=== PATIENT | female | born 1940 | race Caucasian/White ===

== ENCOUNTER 2024-04-04 14:54 | Outpatient (REF) | payer MEDICARE, OTHER, SELFPAY ==
[2024-04-04 17:57] LABS: Appearance Urine Clear; Color Urine Yellow; Glucose Urine UA Negative (Negative); Leukocyte Esterase Urine Trace (Negative); Nitrite Urine Negative (Negative); PH 5.5 (5.0-9.0); Specific Gravity - Urine 1.015 (1.005-1.025); UMIC TRIGGER UA YES; Urine Blood Negative (Negative); Urine Ketones Trace mg/dL (Negative); Urine Protein Trace mg/dL (Neg-Trace)
[2024-04-04 18:05] LABS: Hematocrit 41.5 % (37.0-47.0); Hemoglobin 14.2 g/dl (12.0-16.0); Mean Corpuscular HGB Conc 34.2 g/dl (31.0-35.0); Mean Corpuscular Hemoglobin 32.6 pg (27.0-33.0); Mean Corpuscular Volume 95.2 fL (80.0-98.0); Mean Platelet Volume 10.8 fL (9.4-12.3); Platelet Count 217 X10*3/uL (160-400); Red Blood Count 4.36 X10*6/uL (4.20-5.50); Red Cell Distribution Width 12.9 % (11.0-16.0); White Blood Count 4.8 X10*3/uL (4.8-10.8)
[2024-04-04 18:07] LABS: Estimated Average Glucose 100 mg/dL; Hemoglobin A1c % 5.1 % (<6.0); Total Hemoglobin (HGBA1C) 3632.8069 umol/L
[2024-04-04 18:16] LABS: Bacteria Urine None Seen (None Seen); RBC Urine 0-2 /HPF (0-2)
[2024-04-04 18:24] LABS: Alanine Aminotransferase 19 U/L (0-31); Albumin Level 4.2 g/dL (3.5-5.0); Alkaline Phosphatase 67 U/L (39-117); Anion Gap 14 (12-20); Aspartate Amino Transferase 23 U/L (5-31); Bilirubin Total 0.6 mg/dL (0.0-1.0); Blood Urea Nitrogen 10 mg/dL (9-16); Calcium 9.3 mg/dL (8.4-10.2); Carbon Dioxide 25 mmol/L (22-29); Chloride 103 mmol/L (96-108); Cholesterol 265 mg/dL (<200); Estimated Glomerular Filt Rate > 60; Glucose Random 100 mg/dL (60-115); HDL Cholesterol 93 mg/dL (>40); LDL Cholesterol Calculated 158 mg/dL (<100); Magnesium 2.1 mg/dL (1.6-2.6); Phosphorus 2.9 mg/dL (2.7-4.5); Potassium 3.6 mmol/L (3.3-5.1); Sodium 138 mmol/L (135-145); Total Protein 7.6 g/dL (6.5-8.0); Triglycerides 70 mg/dL (<150)
[2024-04-04 18:34] LABS: Creatinine Urine 117.72 mg/dL
[2024-04-04 18:39] LABS: TSH reflex Free T4 2.18 uIU/mL (0.32-4.0); Vitamin D 25-OH Total 40.6 ng/mL (>30)
[2024-04-04 18:45] LABS: Folate 14.6 ng/mL (> or = 4.0); Vitamin B12 610 pg/mL (200-900)
== END 2024-04-04 14:55 | disposition home or self-care (01) ==
LOC: HO.WFDLDS 14:54
PROVIDERS: Visit Provider Nurse Practitioner Family
DX: Z00.00 Encounter for general adult medical examination without abnormal findings (principal); Z76.89 Persons encountering health services in other specified circumstances; Z23 Encounter for immunization; F41.1 Generalized anxiety disorder; F10.90 Alcohol use, unspecified, uncomplicated; C44.91 Basal cell carcinoma of skin, unspecified; I51.7 Cardiomegaly; I73.9 Peripheral vascular disease, unspecified; I10 Essential (primary) hypertension; Z78.0 Asymptomatic menopausal state; Z71.89 Other specified counseling
CPT/HCPCS: 36415; 80053; 80061; 81001; 82043; 82306; 82570; 82607; 82746; 83036; 83735; 84100; 84443; 85027; 90471; 90656; 90715; 93005; 96127; 99202

== ENCOUNTER 2024-04-11 11:17 | Outpatient (AMB) | payer MEDICARE, OTHER, SELFPAY ==
--- NOTE | 2024-04-11 11:20 | A.OFFVIS_ITS ---
Intake Vital Signs 04/11/24 11:46 Height 5 ft 4 in Weight 157 lb 4 oz BMI 27.0 BP 164/84 H Blood Pressure Location Rt brachial Position Sitting Respiration 13 Pulse 69 Pulse Source Pulse Oximeter Temp 96.9 F Temp Source Oral Pulse Oximetry (%) 99 Oxygen Delivery Method Room Air Intake Visit Reasons: Follow up Intake Note: AWV annual visit [employer] Required: No Allergies No Known Allergies Allergy (Verified 04/11/24 11:21) Medication List - Last Reconciled 04/11/24 by EDDIE Dos Santos- No Known Home Meds Do you need a note to return to daycare/school/sports/work: No HPI HPI Comments History of Present Illness Details Glo Here today for AWV and routine fu: 83 y/o F with basal cell ca, LVH, ROLF, E sly use, PVD, HTN SurgHx: none FHx: sister and bro with parkinson, both parent CHF, brother MVP, Maternal side Cards; Brother w lymphoma, 2 sisters w breast ca, 1 sister w lung ca, siblings with macular SocHx: - Exercise: Active, used to walk a mile and a half daily, recently resumed this activity. - Functional Status: Maintains self-suff iciency, actively mows the lawn for herself and neighbors. - Substance Use: Consumes alcohol occasi onally, sometimes due to anxiety. - Vaccinations: Has not received recent vaccinations including flu and tetanus. - Family: Significant family history of cardiovascular disease and various cancers. Health Maintenance: See scanned preventative medicine assessment with personalized health plan and screening schedule. Colon: has never had one Mammo ordered today DEXA ordered today PAP aged out Vaccines: Flu, Tdap 03/2024 AAA screen: NA EKG: LVH, q waves [place] of Care: Dental Eye Derm Visual Acuity: wears glasses, declined exam today, last eye exam years ago [place] [facility] Hearing Screening: no hearing aides, she has no complaints ACP: HCP Y MOLST/ACP No Forms provided Dietary/Nutrition/Exercise Edu provided: Y Results Labs from 04/04/2024 show a normal CBC, normal electrolytes, normal renal function, hemoglobin A1c of 5.1%, normal calcium, phosphorus, magnesium, normal LFTs, total cholesterol 265, LDL 158, HDL 93, normal vitamin B12, vitamin-D, folate, TSH, normal urinalysis, slightly elevated urine microalbumin creatinine at 56 During the course of the visit the patient was educated and counseled about appropriate screening and preventative services. Patient instructions were provided to the patient in written or electronic format. I have reviewed and verified the above information. - elevated blood pressure - She reports underlying anxiety issues, attributing part of her elevated blood pressure to stress factors. - EKGs have shown Left Ventricular Hyper trophy, indicating increased cardiac workload. Health Maintenance - Discussion included the importance of monitoring blood pressure regularly. - Recommendations for an eye examination given it has been a couple of years since the last visit. - Introduction to advance care planning and documentation of patient wishes including MOLST form. - Encouragement of lifestyle adjustments , such as gradual position changes to prevent dizziness and fainting. - Avoidance of excessive alcohol intake was discussed to moderate her consumption of wine. Social History - The patient is fiercely independent an d does not usually require assistance with daily activities. - Regular physical activity mentioned as being able to handle tasks resembling heavy work. - She is not currently sexually active. Review of Systems - Cardiovascular: Reports high blood pre ssure, denies experiencing symptoms di rectly from hypertension. - Neurological: Denies dizziness under n ormal circumstances or excessive tiredness. - Musculoskeletal: Reports being indepen dent in physical activities without assistance. - Psychiatric: Reports longstanding anxi ety impacting social interactions. - Genitourinary: Denies urinary incontin ence. - Gastrointestinal: Denies any issues wi th chewing, eating, or significant g astrointestinal complaints. Exam: General: Well developed, well nourished, in no acute distress. Appears stated age. accompanied by Nhan vo Head: Normocephalic, atraumatic. Eyes: Pupils are equal, round and reactive to light and accommodation. Conjunctivae are clear. Vision grossly normal. Ears: TMs clear AU, EACS WNL Nose: Patent, without discharge. Mouth: There are no ulcers or lesions noted. No inflammation, no post nasal drip, no plaques nor exudates. Neck: Supple, no adenopathy or thyromegaly. Lungs: Clear to auscultation bilaterally. No rales, rhonchi or wheeze noted. Good air flow in all conde. Heart: Regular rate, + PVC + 2/6 murmurs, click, rubs or gallops are noted. Abdomen: Bowel sounds present in all quadrants. The abdomen is soft, nontender, with no masses or organomegaly noted. No hernias are noted. Musculoskeletal: Joints are nontender, without swelling, redness, or effusions. Range of motion is observed to be normal. Pulses: Peripheral pulses are equaly decreased and palpable bilaterally. Extremities: No clubbing, cyanosis is noted. No edema ble, skin hairless, decreased PP bilat, skin intact Neurologic: Gait and station normal. Cranial Nerves 2-12 intact. Motor strength grossly symmetrical and intact. No sensory loss. Balance normal. Skin: No rashes. + scattered abnormal lesions noted on back. Turgor is good. Skin color is good. Hair and nails are without abnormalities. Psych: Normal eye contact, affect and mood appropriate, and normal interactions. Patient is alert and appropriate to context. + Anxious Results - Labs: The patient's recent lab work WN L - Imaging/EKG: Indications of Left Ventr icular Hypertrophy present. Plan The primary interventions include initiating Lisinopril to address essential hypertension and Sertraline to manage anxiety symptoms. The dose starts at a minimal level to ensure patient tolerance, with plans to monitor both blood pressure and anxiety closely over the coming weeks. Laboratory results are currently reassuring, including the EKG markers of Left Ventricular Hypertrophy, which will be further assessed with an upcoming echocardiogram. Follow-up appointments for eye health and dermatology were emphasized to ensure comprehensive preventative care. Advance care planning discussions are recommending acknowledgment and future consideration. The patient will be monitored for any adverse reactions to new medications, such as dizziness or facial swelling. Discussion Notes I discussed with the patient the implications of her elevated blood pressure and anxiety, emphasizing that both could be managed effectively with appropriate pharmacological intervention. Sertraline was introduced as a treatment for anxiety, with the explanation that it may take a few weeks for full effect. Lisinopril was recommended for managing high blood pressure, with the potential side effects of dizziness and swelling highlighted. The importance of monitoring her blood pressure regularly at home was stressed, along with scheduling upcoming echocardiogram to assess cardiac status. The significance of advance care planning was explained, providing materials for patient reflection. I provi ded full transparency into the treatment schedule and anticipated progress, ensuring understanding and consent. Future follow-up in two weeks was set to evaluate the efficacy of the medication adjustments. Patient Instructions - Begin taking Sertraline as directed: 1 2.5 mg once a day for two weeks, then increase as instructed. - Start Lisinopril at 5 mg daily to rajesh ramirez blood pressure. - Keep a log of daily blood pressure selene bearden and bring to next appointment. - Monitor for side effects of medication s, such as dizziness or swelling, and report immediately if they occur. - Arrange appointments for an eye exam a nd dermatology for routine care. - Complete advance care planning forms a fter reviewing the provided materials. - Follow all medical appointments, inclu ding the echocardiogram next week. - Stay physically active and cautious wh ile changing positions to avoid dizziness. Patient was informed and verbally consented to the use of an ambient scribe for clinic note documentation during this visit. An additional 30 minutes was spent addressing the problem(s) noted at todays visit. This includes time spent before the visit reviewing the chart, time spent during the visit, and time spent after the visit on documentation reviewing laboratory results, diagnostic imaging, medications, performing a medically necessary evaluation, counseling on diagnoses, care coordination, ordering appropriate tests, ordering appropriate medications, review of tests performed by other providers, reporting test results with the patient, communication with other healthcare providers. [facility] Medical History (Updated 04/11/24 @ 12:41 by ANNETTE Dos SantosFORMERLY [facility]) Anxiety Skin cancer Surgical History (Updated 04/04/24 @ 13:35 by Savanna Arias MA) No pertinent past surgical history Family History (Updated 04/04/24 @ 13:35 by Savanna Arias MA) Sister Mental health disorder Cancer Parkinson disease Hypertension Paternal Grandmother Mental health disorder Brother Mental health disorder Cancer Parkinson disease Hypertension Cardiovascular disease Sister Cancer Father Hypertension Cardiovascular disease Mother Cardiovascular disease Son Diabetes Maternal Grandmother Diabetes Social History (Updated 04/04/24 @ 13:33 by Savanna Arias MA) Household Members: None Both parents involved: No Caregiver staying overnight: No Housing: House Are you a primary rn care transition to a significant other at home: No Do you presently have visiting nurse or other home services: No 75 years or older and lives alone: No Alcohol intake: current Alcohol intake frequency: a few times a week Patient Tobacco Use Status: Never used Tobacco e-Cigarette/Vaping Use: Never Used Second Hand Smoke Exposure: No service: No Current occupational status: retired Cognitive needs: No Hearing needs: No Vision needs: No Questionnaire Medicare Wellness Checkup What is your age?: 80 or older What gender do you identify with?: female During the past 4 weeks, how much have you been bothered by emotional problems such as feeling anxious, depressed, irritable, sad or downhearted, and blue?: see PHQ-9 During the past 4 weeks, has your physical & emotional health limited your social activities with family, friends, neighbors, or groups?: extremely During the past 4 weeks, how much bodily pain have you generally had?: no pain During the past 4 weeks, was someone available to help you if you needed & wanted help?: yes, as much as I wanted During the past 4 weeks, what was the hardest physical activity you could do for at least 2 minutes?: heavy Can you get to places out of walking distance without help? (For eg., can you travel alone on buses, taxis or drive your car?): Yes Can you go shopping for groceries or clothes without someone's help?: Yes Can you prepare your own meals?: Yes Can you do your housework without help?: Yes Because of any health problems, do you need the help of another person with your personal care needs such as eating, bathing, dressing or getting around the house?: No Can you handle your own money without help?: Yes During the past 4 weeks, how would you rate your health in general?: good During the past 4 weeks how have things been going for you?: good & bad parts about equal Are you having difficulties driving your car?: no Do you always fasten your seat belt when you are in a car?: yes, usually During past 4 weeks, have you been bothered by the following: never: Falling or dizzy when standing up, Sexual problems?, Trouble eating well?, Teeth or denture problems?, Problems using the telephone? and Tiredness or fatigue? Have you fallen 2 or more times in the past year?: No Are you afraid of falling?: Yes Are you a smoker?: no During the past 4 weeks, how many drinks of wine, beer, or other alcoholic beverages did you have?: no alcohol at all Do you exercise for about 20 minutes 3 or more times a week?: yes, some of the time Have you been given information to help with the following?: no: Hazards in your house that might hurt you? and no: Keeping track of your medications? How often do you have trouble taking medicines the way you have been told to take them?: I do not have to take medicine How confident are you that you can control & manage most of your health problems?: very confident What is your race?: White Activity of Daily Living Bathing - sponge bath, tub bath or shower: receives no assistance (gets in/out by self, if usual bathing means Dressing - getting clothes from closets & drawers, including inner/outer garments & fasteners.: gets clothes & gets completely dressed without help Toileting - going to the 'toilet room' for urine/bowel elimination & cleaning self/arranging clothes: goes to toilet room, cleans self, arranges clothes without help Transfer: moves in & out of bed and chair without help (may use support object) Continence: controls urination/bowel movements completely by self Feeding: feeds self without help Total Score: 0 Information obtained from: patient Using telephone: independent Traveling: independent Shopping: independent Preparing meals: independent Housework: independent Taking medicine: independent Managing money: independent PHQ-9 Over the last 2 weeks, how often have you been bothered by any of the following problems? 1. Little interest or pleasure in doing things: not at all 2. Feeling down, depressed, or hopeless: not at all 3. Trouble falling or staying asleep, or sleeping too much: not at all 4. Feeling tired or having little energy: not at all 5. Poor appetite or overeating: not at all 6. Feeling bad about yourself - or that you are a failure or have let yourself or your family down: not at all 7. Trouble concentrating on things, such as reading the newspaper or watching television: not at all 8. Moving or speaking so slowly that other people could have noticed. Or the opposite - being so fidgety or restless that you have been moving around a lot more than usual: not at all 9. Thoughts that you would be better off or of hurting yourself in some way: not at all Total score: 0 Depression Screening Interpretation: Negative Depression Screening Done: Yes 11802 - PHQ-9 Billing: Yes Source: Developed by Drs. Refugio Magana, Casie Aguilera, Brennen Murcia and colleagues, with an educational carmenza from [employer] Physical Exam Vital Signs: Last Vital Signs Temp 96.9 F 04/11/24 11:46 Pulse 69 04/11/24 11:46 Resp 13 04/11/24 11:46 BP 164/84 H 04/11/24 11:46 Pulse Ox 99 04/11/24 11:46 Oxygen Delivery Method Room Air 04/11/24 11:46 BMI result Body Mass Index 27.0 Assessment & Plan Assessment & Plan (1) Encounter for subsequent annual wellness visit (AWV) in Medicare patient: Code(s): Z00.00 - Encounter for general adult medical examination without abnormal findings (2) LVH (left ventricular hypertrophy): Code(s): I51.7 - Cardiomegaly (3) HTN (hypertension): Code(s): I10 - Essential (primary) hypertension Qualifiers: Hypertension type: primary hypertension Qualified Code(s): I10 - Essential (primary) hypertension (4) Alcohol use: Code(s): F10.90 - Alcohol use, unspecified, uncomplicated (5) ACP (advance care planning): Code(s): Z71.89 - Other specified counseling (6) Basal cell carcinoma of skin: Code(s): C44.91 - Basal cell carcinoma of skin, unspecified Qualifiers: Basal cell carcinoma location: unspecified site Qualified Code(s): C44.91 - Basal cell carcinoma of skin, unspecified (7) ROLF (generalized anxiety disorder): Code(s): F41.1 - Generalized anxiety disorder Plan . Medications: New sertraline 1/2 tab once per day x 2 weeks then increase to 1 tab daily 25 mg PO DAILY 30 tabs 1RF lisinopril 5 mg PO DAILY 90 tabs 0RF miscellaneous medical supply (Blood Pressure Cuff) As directed 1 ea 1RF I10 - Essential (primary) hypertension, I51.7 - Cardiomegaly Quality Reporting (2019) Adult ([facility] 138/04/19/68) Smoking risk assessment performed?: Yes Patient Tobacco Use Status: Never used Tobacco Depression screening performed: Yes Screen Results: Yes Negative screen Systolic BP not done?: No Diastolic BP not done?: No BMI screening not done: No Sexual Activity Screening ([facility] 153) Sexually active?: No Immunizations (CMS 147, 117) Annual Influenza Vaccine: Yes Measles Antibody Test: No Mumps Antibody Test: No Rubella Antibody Test: No Varicella Antibody Test: No Anti Hepatitis A IgG Antigen test: No Anti Hepatitis B Virus Surface Ab test: No Fall Risk Screening ([facility] 139) Last assessed Fall Risk: 04/11/24 Fall risk assessment: No Falls in past year Dementia Assessment ([facility] 149) Cognitive assessment recorded: Yes Assessment of cognition with standardized tool: Yes (/ on 6 CIT ) Depression/Bipolar (159/160/161/177) PHQ-9: Total score: 0 Ophthalmol:Cataracts Visual Acuity (133) Visual acuity exam performed: Yes (overdue for eye exam, [place] [facility], wears glasses. ) Coding Level of Care Code Medicare Subsequent (G0439) Est Pt Level 4 (32633) Diagnoses Encounter for subsequent annual wellness visit (AWV) in Medicare patient Z00.00 LVH (left ventricular hypertrophy) I51.7 Primary hypertension I10 Hypertension type: primary hypertension Alcohol use F10.90 ACP (advance care planning) Z71.89 Basal cell carcinoma (BCC), unspecified site C44.91 Basal cell carcinoma location: unspecified site ROLF (generalized anxiety disorder) F41.1 CPT Codes Advance Care Planning - Time spent: 1-15 minutes, not on file ([id number]) Additional Codes PHQ-9 - 03582 - PHQ-9 Billing: Yes ([id number]) Advance Care Planning Advance Care Planning discussion: Exists, not on file Date of discussion: 04/11/24 Who was present: pt and dtr nhan (HCP) Forms completed: Health Care Proxy (scanned into chart; MOLST/ACP info provided ), MOLST, Comfort care/DNR and Living will Time spent: 1-15 minutes, not on file Actual minutes spent: 10
[2024-04-11 11:46] VITALS: BP 164/84; PULSE 69; RESP 13; TEMP 36.1; O2SAT 99; BMI 27.0
== END 2024-04-11 12:28 | disposition home or self-care (01) ==
PROVIDERS: PCP Nurse Practitioner Family; Visit Provider Nurse Practitioner Family
DX: Z00.00 Encounter for general adult medical examination without abnormal findings (principal); I51.7 Cardiomegaly; I10 Essential (primary) hypertension; F10.90 Alcohol use, unspecified, uncomplicated; Z71.89 Other specified counseling; C44.91 Basal cell carcinoma of skin, unspecified; F41.1 Generalized anxiety disorder

== ENCOUNTER → 2024-04-11 11:17 | Outpatient (BNVA) | payer MEDICARE, OTHER, SELFPAY | PROVIDERS: PCP Nurse Practitioner Family; Visit Provider Nurse Practitioner Family | DX: Z00.01 Encounter for general adult medical examination with abnormal findings (principal); I10 Essential (primary) hypertension; I51.7 Cardiomegaly; F10.90 Alcohol use, unspecified, uncomplicated; C44.91 Basal cell carcinoma of skin, unspecified; F41.1 Generalized anxiety disorder; Z71.89 Other specified counseling | CPT/HCPCS: 96127; 99212 ==

== ENCOUNTER → 2024-04-16 12:50 | Outpatient (REF) | payer MEDICARE, OTHER, SELFPAY ==
--- NOTE | 2024-04-16 12:57 | CA_ITS ---
Transthoracic Echocardiogram Patient (Last, First, Middle): Mervat Eli W Gender: Female Date of : 1940 Age: 83 Procedure Date: 04/16/2024 Procedure Type: Transthoracic Echocardiogram Location: OP Height: 162.56 cm Weight: 68.04 kg BSA: 1.73 m2 Heart Rate: bpm BP: 168 / 84 mmHg Heddler: RADHA Referring MD: Vane Ladd [facility] Symptoms: I51.7 - Cardiomegaly Study Quality: Fair ECG Rhythm: Sinus Conclusions: - The left ventricular systolic function is moderately decreased. The calculated ejection fraction is 40% by biplane method. - There is evidence of regional wall motion abnormalities. - Evidence suggests grade II (moderate) diastolic dysfunction. - There is mild mitral valve regurgitation. - There is mild dilatation of the ascending aorta measuring 4.00 cm. Findings Left Ventricle Moderately increased left ventricular cavity size. The left ventricular systolic function is moderately decreased. The calculated ejection fraction is 40% by biplane method. There is evidence of regional wall motion abnormalities. Evidence suggests grade II (moderate) diastolic dysfunction. There is mild septal asymmetric hypertrophy. Wall Motion Rest Echo Findings The basal inferior, basal anterolateral, and mid inferolateral segments are hypokinetic. The basal inferolateral segment is akinetic. Right Ventricle Mildly increased right ventricular cavity size. There is low normal right ventricular systolic function. Atria The left atrium is severely dilated. The right atrium is normal in size. Aortic Valve There is a normal trileaflet aortic valve. There is mild calcification of the aortic valve. There is no aortic valve stenosis. There is no aortic valve regurgitation. Mitral Valve There is mild mitral annular calcification. There is mild mitral valve regurgitation. There is no mitral valve stenosis. Pulmonic Valve The pulmonic valve is likely normal. Tricuspid Valve There is mild tricuspid valve regurgitation. There is no evidence of pulmonary hypertension. Great Vessels There is mild dilatation of the ascending aorta measuring 4.00 cm. Venous The inferior vena cava is normal in size and collapses greater than 50% with inspiration. Pericardium/Pleural There is no evidence of pericardial effusion. Prior Study Comparison No prior study available for comparison. Measurements 2D Linear Measurements IVSd: 1.04 0.6-0.9/0.6-1.0 cm LVIDd: 6.34 3.9-5.3/4.2-5.9 cm LVIDd Index: 3.66 2.4-3.2/2.2-3.1 cm/m2 LVIDs: 5.71 2.0-3.6 cm LVPWd: 0.95 0.7-1.1 cm LA Diam: 4.50 2.7-3.8/3.0-4.0 cm LAIDs Index: 2.60 1.5-2.3 cm/m2 LV Mass: 336.96 67-162/88-224 g LV Mass Index: 194.78 43-95/49-115 g/m2 LVOT Diam: 2.10 3.0+(-)1.3 cm 2D Systolic Function EF 4C: 41.50 >55% EF 2C: 41.30 >55% EF BiP: 40.40 >55% Mitral Valve MV Pk E: 0.75 MV PK A: 0.73 MV Decel Time: 251.00 E/A: 1.00 E'Lateral: 4.35 E'Medial: 4.03 E/E' Med: 18.50 E/E' Lat: 17.10 PHT: 73.00 MVA PHT: 3.01 Decel [place]: 2.97 Aortic Valve AoV Pk Adán: 1.56 AoV Mn Adán: 1.00 AoV VTI: 0.33 AoV Pk Grad: 10.00 Aov Mn Grad: 5.00 MICHELE Cont.VTI: 1.82 LVOT LVOT Pk Adán: 0.83 LVOT Mn Adán: 0.51 LVOT VTI: 0.17 LVOT Pk Grad: 3.00 LVOT Mn Grad: 1.00 LVOT Diam: 2.10 LVOT Area: 3.46 Diastolic Function MV Pk E: 0.75 MV Pk A: 0.73 E/A: 1.00 E'Medial: 4.03 E/E' Med: 18.50 E' Laterial: 4.35 E/E' Lat: 17.10 Right Ventricle TAPSE (mm): 24.00 TVS' Adán: 10.60 Tricuspid Valve TR Pk Adán: 2.55 TR Pk Grad: 26.00 RA Press: 3.00 RVSP: 29.00 Great Vessels Aorta Sinus of Valsalva: 3.21 2.0-3.[address] [place]: 2.96 1.7-3.4 cm Ao Asc: 4.00 2.1-3.4 cm Updated in Other Vendor System with Status of Final Vinay Jiang MD electronically signed on 04/17/2024 11:08:23 AM with status of Final
== END ==
LOC: HO.CARD 12:50
PROVIDERS: Visit Provider Nurse Practitioner Family
DX: I51.7 Cardiomegaly (principal)
CPT/HCPCS: 93306

== ENCOUNTER → 2024-04-16 12:57 | Outpatient (BNV) | payer MEDICARE, OTHER, SELFPAY | PROVIDERS: Visit Provider Internal Medicine | DX: I42.2 Other hypertrophic cardiomyopathy (principal); I51.7 Cardiomegaly; I36.1 Nonrheumatic tricuspid (valve) insufficiency; I35.8 Other nonrheumatic aortic valve disorders | CPT/HCPCS: 93306 ==

== ENCOUNTER 2024-05-01 12:22 | Outpatient (AMB) | payer MEDICARE, OTHER, SELFPAY ==
--- NOTE | 2024-05-01 12:23 | MHC.PC.OV ---
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[employer] Jewel Required: No Allergies No Known Allergies Allergy (Verified 05/01/24 12:34) Medication List - Last Reconciled 05/01/24 by Vane Ladd, TIME ANALYSIS CLERK- lisinopril 5 mg PO DAILY miscellaneous medical supply (Blood Pressure Cuff) As directed sertraline 25 mg PO DAILY Tobacco use date assessed: 05/01/24 Fall risk assessment: No Falls in past year Last assessed Fall Risk: 05/01/24 Dental Screening Dental Screen Date: 05/01/24 Did you have a dental visit in the last 12 months?: No Did you have a dental problem in the last 6 months where you did not have access to dental care?: No Was dental information given to patient?: Patient has dentist HPI HPI Comments History of Present Illness Details The patient is an 83-year-old female presenting for an interim follow-up for hypertension and anxiety management. - Two weeks ago, treatment was initiated with lisinopril for hypertension and sertraline for anxiety. - The recent echocardiogram showed heart failure and aortic dilatation due to prolonged uncontrolled hypertension. See below for details. - Home blood pressure readings elevated, scanned into chart, sbp > 170, No dizziness or cardiovascular symptoms reported. Denies cough or side effects. - Anxiety symptoms have not changed, and she is tolerating sertraline without side effects. - MOLST discussed and completed today. Full code. Exam: General: Well developed, well nourished, in no acute distress. Appears stated age. accompanied by Roverto vo Head: Normocephalic, atraumatic. Lungs: Clear to auscultation bilaterally. No rales, rhonchi or wheeze noted. Good air flow in all conde. Heart: Regular rate, + PVC + 2/6 murmurs, click, rubs or gallops are noted. Extremities: No clubbing, cyanosis is noted. No edema ble, skin hairless, decreased PP bilat, skin intact Neurologic: Gait and station normal. Cranial Nerves 2-12 intact. Motor strength grossly symmetrical and intact. No sensory loss. Balance normal. Psych: Normal eye contact, affect and mood appropriate, and normal interactions. Patient is alert and appropriate to context. + Anxious Results Echo 03/2024 Moderate LVH, systolic function moderately decreased ejection fraction 40%, regional wall motion abnormalities with grade 2 moderate diastolic dysfunction, mild septal asymmetry hypertrophy, mild RVH, left atrium severely dilated, mild calcification of the aortic valve, mild mitral annular calcification, mild mitral valve regurg, mild tricuspid valve regurg, mild dilation of the ascending aorta 4 cm 04/2024 declined mammo/dexa @ this time Discussion Notes I discussed the echocardiogram findings with the patient, explaining the presence of heart failure and aortic dilatation primarily due to prolonged uncontrolled hypertension. I emphasized the importance of achieving optimal blood pressure control to prevent further cardiac complications. The patient was open to adding a beta-collin to the regimen, considering its dual benefit for blood pressure stabilization and heart failure treatment. I also advised on the necessity of monitoring potential side effects, such as bradycardia, due to her already lower resting heart rate. We addressed the potential of consulting cardiology but expressed hesitancy based on the likely extensive evaluations they might conduct. The patient appreciated a conservative management approach with close follow-up to monitor her response to incremental medication adjustments. We agreed to revisit diagnostic screenings at a later date due to the current focus on managing her immediate cardiovascular and anxiety concerns. Assessment and Plan 1. Essential Hypertension: The addition of carvedilol is advised to better manage hypertension by aiding in heart rate control and augmenting cardiac function. Lisinopril will remain at the current dose, and blood pressure will be regularly monitored. Start coreg once per day and increase to twice per day if able. 2. Anxiety Disorder: Continuing the current dosing of sertraline is recommended to allow sufficient response time. Symptom improvement will be evaluated at six weeks post-start of therapy. 3. Heart Failure: To address recently noted cardiac changes, optimization of medication with carvedilol is advised. Surveillance for ventricular function and symptomatic relief will be essential components of the follow-up. She is euvolemic. 4. Aortic Dilatation: Address this condition via diligent hypertension management strategies. Involvement of cardiology will be reconsidered based on patient preferences and clinical course. Pt declined at this time. Patient Instructions - Keep taking lisinopril as prescribed. - Start carvedilol at a low dose once daily initially to evaluate tolerance. - Follow up in four weeks to assess blood pressure control and medication effects. - Notify healthcare provider immediately if you experience symptoms such as heart rate below 50 bpm, dizziness, or fainting. - Continue sertraline medication and monitor for any changes in anxiety levels. - Regularly check blood pressure at home and maintain a log of readings. - Postpone mammogram and bone density screenings; prioritize current management. RTO 4 weeks for BP recheck, mood, sooner PRN Consent I obtained verbal consent from the patient for the initiation of carvedilol for additional blood pressure and heart failure management. The risks, including potential bradycardia, benefits of improved heart function, and alternatives were discussed comprehensively. The patient expressed understanding and agreement with the plan. Additionally, consent for ongoing antihypertensive and anxiety management strategies was confirmed. Patient was informed and verbally consented to the use of an ambient scribe for clinic note documentation during this visit. Total time spent caring for the patient today was 45 minutes. This includes time spent before the visit reviewing the chart, time spent during the visit, and time spent after the visit on documentation, reviewing laboratory results, diagnostic imaging, medications, performing a medically necessary evaluation, counseling on diagnoses, care coordination, ordering appropriate tests, ordering appropriate medications, review of tests performed by other providers, reporting test results with the patient, communication with other healthcare providers. [facility] Medical History (Updated 05/01/24 @ 15:26 by Vane Ladd [facility]) Anxiety Skin cancer Surgical History (Updated 04/04/24 @ 13:35 by Savanna Arias MA) No pertinent past surgical history Family History (Updated 04/04/24 @ 13:35 by Savanna Arias MA) Sister Mental health disorder Cancer Parkinson disease Hypertension Paternal Grandmother Mental health disorder Brother Mental health disorder Cancer Parkinson disease Hypertension Cardiovascular disease Sister Cancer Father Hypertension Cardiovascular disease Mother Cardiovascular disease Son Diabetes Maternal Grandmother Diabetes Social History (Updated 04/04/24 @ 13:33 by Savanna Arias MA) Household Members: None Both parents involved: No Caregiver staying overnight: No Housing: House Are you a primary career professional to a significant other at home: No Do you presently have visiting nurse or other home services: No 75 years or older and lives alone: No Alcohol intake: current Alcohol intake frequency: a few times a week Patient Tobacco Use Status: Never used Tobacco e-Cigarette/Vaping Use: Never Used Second Hand Smoke Exposure: No service: No Current occupational status: retired Cognitive needs: No Hearing needs: No Vision needs: No Questionnaire PHQ-9 Over the last 2 weeks, how often have you been bothered by any of the following problems? 1. Little interest or pleasure in doing things: not at all 2. Feeling down, depressed, or hopeless: not at all 3. Trouble falling or staying asleep, or sleeping too much: not at all 4. Feeling tired or having little energy: not at all 5. Poor appetite or overeating: not at all 6. Feeling bad about yourself - or that you are a failure or have let yourself or your family down: not at all 7. Trouble concentrating on things, such as reading the newspaper or watching television: not at all 8. Moving or speaking so slowly that other people could have noticed. Or the opposite - being so fidgety or restless that you have been moving around a lot more than usual: not at all 9. Thoughts that you would be better off or of hurting yourself in some way: not at all Total score: 0 28907 - PHQ-9 Billing: Yes Source: Developed by Drs. Refugio Magana, Casie Aguilera, Brennen Murcia and colleagues, with an educational carmenza from [employer]. Thrive Questionnaire Date Thrive assessed: 05/01/24 I am a: Patient What is your living situation today?: I have a steady place to live Within the past 12 months, did the food you bought not last and you didn't have the money to get more?: Never true Within the past 12 months, did you worry whether your food would run out before you got money to buy more?: Never true Do you have trouble paying for medicines?: No Do you have trouble getting transportation to medical appointments?: No Do you have trouble paying your heating and electricity bill?: No Do you have trouble taking care of your child, family member or friend?: No Do you have trouble with day-to-day activities such as bathing, preparing meals, shopping, managing finances, etc.?: No Are you currently unemployed and looking for a job?: No Are you interested in more education?: No Please select the resources that you would like help with: None Currently or been in a relationship where the following occur: No concerns reported THRIVE Score: 0 ROLF-7 AMB Questionnaire ROLF-7 Date ROLF - 7 assessed: 05/01/24 Feeling nervous, anxious, or on edge: 0 = Not at all Not being able to stop or control worryin = Not at all Worrying too much about different things: 0 = Not at all Trouble relaxin = Not at all Being so restless that it is hard to sit still: 0 = Not at all Becoming easily annoyed or irritable: 0 = Not at all Feeling afraid as if something awful might happen: 0 = Not at all Total ROLF-7 score (0-4 normal; 5-9 mild; 10-14 moderate; 15-21 severe): 0 Source: Developed by Drs. Refugio Magana, Casie Aguilera, Brennen Murcia and colleagues, with an educational carmenza from [employer]. ROLF-7 Assessment Billing ROLF-7 Assessment Tool: ROLF-7 Assessment 88174 Physical exam (Primary Care) Vital Signs: Last Vital Signs Temp 97.1 F 05/01/24 12:26 Pulse 53 05/01/24 12:26 Resp 13 05/01/24 12:26 BP 132/78 05/01/24 12:26 Pulse Ox 98 05/01/24 12:26 Oxygen Delivery Method Room Air 05/01/24 12:26 BMI result Body Mass Index 26.6 Tobacco/Smoking Status: Tobacco use Status Tobacco use date assessed 05/01/24 05/01/24 12:29 Patient Tobacco Use Status Never used Tobacco 05/01/24 12:29 e-Cigarette/Vaping Use Never Used 05/01/24 12:29 PHQ-9: PHQ-9 Score PHQ-9: Total score 0 05/01/24 12:29 Thrive Assessment: Date of Thrive Assessment Date Thrive assessed 05/01/24 05/01/24 12:29 Currently or been in a relationship where the following occur: No concerns reported Office Procedures Advance Care Planning Advance Care Planning discussion: Completed/Scanned Date of discussion: 05/01/24 Who was present: SELF AND DTR ROVERTO Forms completed: MOLST Time spent: 16-45 minutes Actual minutes spent: 5 Coding Level of Care Code Est Pt Level 5 (44987) Complex EM visit Add On G2211 Diagnoses ROLF (generalized anxiety disorder) F41.1 Primary hypertension I10 Hypertension type: primary hypertension ACP (advance care planning) Z71.89 Full code status Z78.9 Physician orders for life-sustaining treatment (POLST) form indicates patient wish for full code resuscitation status Z78.9 Ascending aorta dilatation I77.810 Chronic diastolic congestive heart failure I50.32 Heart failure type: diastolic Heart failure chronicity: chronic CPT Codes Advance Care Planning - Time spent: 16-45 minutes ([id number]) Additional Codes ROLF-7 Assessment Billing - ROLF-7 Assessment Tool: ROLF-7 Assessment 20061 ([id number]) PHQ-9 - 40298 - PHQ-9 Billing: Yes ([id number]) Assessment & Plan Assessment & Plan (1) ROLF (generalized anxiety disorder): Code(s): F41.1 - Generalized anxiety disorder Category: Medical (2) HTN (hypertension): Code(s): I10 - Essential (primary) hypertension Category: Medical Qualifiers: Hypertension type: primary hypertension Qualified Code(s): I10 - Essential (primary) hypertension (3) ACP (advance care planning): Code(s): Z71.89 - Other specified counseling Category: Medical (4) Full code status: Code(s): Z78.9 - Other specified health status Category: Medical (5) Physician orders for life-sustaining treatment (POLST) form indicates patient wish for full code resuscitation status: Code(s): Z78.9 - Other specified health status Category: Medical (6) Ascending aorta dilatation: Comment: echo 03/2024 mild dilation of the ascending aorta 4 cm Code(s): I77.810 - Thoracic aortic ectasia Category: Medical (7) CHF (congestive heart failure): Comment: 03/2024 ECHO Moderate LVH, systolic function moderately decreased ejection fraction 40%, regional wall motion abnormalities with grade 2 moderate diastolic dysfunction, mild septal asymmetry hypertrophy, mild RVH, left atrium severely dilated, mild calcification of the aortic valve, mild mitral annular calcification, mild mitral valve regurg, mild tricuspid valve regurg, mild dilation of the ascending aorta 4 cm Code(s): I50.9 - Heart failure, unspecified Category: Medical Qualifiers: Heart failure type: diastolic Heart failure chronicity: chronic Qualified Code(s): I50.32 - Chronic diastolic (congestive) heart failure Plan . Medications: New carvedilol (Coreg) must administer with a meal/food 3.125 mg PO DAILY 30 tabs 0RF Refilled sertraline 1/2 tab once per day x 2 weeks then increase to 1 tab daily 25 mg PO DAILY 30 tabs 1RF
[2024-05-01 12:26] VITALS: BP 132/78; PULSE 53; RESP 13; TEMP 36.2; O2SAT 98; BMI 26.6
[2024-05-01 12:45] VITALS: BP 152/82
== END 2024-05-01 13:05 | disposition home or self-care (01) ==
PROVIDERS: PCP Nurse Practitioner Family; Visit Provider Nurse Practitioner Family
DX: F41.1 Generalized anxiety disorder (principal); I10 Essential (primary) hypertension; Z71.89 Other specified counseling; Z78.9 Other specified health status; I77.810 Thoracic aortic ectasia; I50.32 Chronic diastolic (congestive) heart failure

== ENCOUNTER → 2024-05-01 12:22 | Outpatient (BNVA) | payer MEDICARE, OTHER, SELFPAY | PROVIDERS: PCP Nurse Practitioner Family; Visit Provider Nurse Practitioner Family | DX: F41.1 Generalized anxiety disorder (principal); I77.810 Thoracic aortic ectasia; I11.0 Hypertensive heart disease with heart failure; I50.32 Chronic diastolic (congestive) heart failure; Z71.89 Other specified counseling; Z78.9 Other specified health status | CPT/HCPCS: 96127; 99212; 99497 ==

== ENCOUNTER 2024-05-30 09:37 | Outpatient (AMB) | payer MEDICARE, OTHER, SELFPAY ==
--- NOTE | 2024-05-30 09:39 | MHC.PC.OV ---
Vital Signs 05/30/24 09:43 05/30/24 10:19 Height 5 ft 4 in Weight 154 lb 8 oz BMI 26.5 BP 178/84 H 150/84 H Blood Pressure Location Lt brachial Lt brachial Position Sitting Sitting Respiration 13 Pulse 66 Pulse Source Pulse Oximeter Temp 97.2 F Temp Source Oral Pulse Oximetry (%) 98 Oxygen Delivery Method Room Air Intake Visit Reasons: 4 WEEKS FU HTN/MOOD Intake Note: 4 weeks follow up Cribbing Setter Required: No Allergies No Known Allergies Allergy (Verified 05/30/24 10:05) Medication List - Last Reconciled 05/30/24 by Vane Ladd, DEPARTMENTAL BUYER- carvedilol (Coreg) 3.125 mg PO DAILY hydroxyzine HCl 10 mg PO TID PRN lisinopril 5 mg PO DAILY miscellaneous medical supply (Blood Pressure Cuff) As directed sertraline 50 mg PO DAILY Tobacco use date assessed: 05/30/24 Fall risk assessment: No Falls in past year Last assessed Fall Risk: 05/30/24 Dental Screening Dental Screen Date: 05/30/24 Did you have a dental visit in the last 12 months?: Yes Did you have a dental problem in the last 6 months where you did not have access to dental care?: No Was dental information given to patient?: Patient has dentist HPI HPI Comments History of Present Illness Details 83 y/o F with basal cell ca, LVH, ROLF, Etoh use, PVD, HTN - The patient is an 83-year-old female presenting for management of anxiety, insomnia, and hypertension. - Anxiety symptoms have persisted despite increasing sertraline dosage to 50 mg. Hydroxyzine is deemed ineffective for daytime anxiety and causes grogginess with higher doses taken at night. - Her insomnia is partially mitigated by reading, which helps in falling asleep, however, hydroxyzine, while assisting with sleep, causes undesirable morning effects if the full dose is taken. - Hypertension remains uncontrolled, blood pressure readings vary widely at home. She is taking carvedilol once daily along with lisinopril 5 mg, without notable improvement in blood pressure control. - Has reduced etoh intake Exam: General: Well developed, well nourished, in no acute distress. Appears stated age. accompanied by shellierLeni Head: Normocephalic, atraumatic. Lungs: Clear to auscultation bilaterally. No rales, rhonchi or wheeze noted. Good air flow in all conde. Heart: Regular rate, + PVC + 2/6 murmurs, click, rubs or gallops are noted. Extremities: No clubbing, cyanosis is noted. No edema ble, skin hairless, decreased PP bilat, skin intact Neurologic: Gait and station normal. Cranial Nerves 2-12 intact. Motor strength grossly symmetrical and intact. No sensory loss. Balance normal. Psych: Normal eye contact, affect and mood appropriate, and normal interactions. Patient is alert and appropriate to context. + Anxious During the visit, I discussed with the patient the current management plan for her anxiety, insomnia, and hypertension. For anxiety, I considered initiating buspirone or clonidine. Buspirone is less effective but also non-addictive, while clonidine might offer dual benefits for anxiety and hypertension. The need for regular blood pressure tracking at home was reiterated. For insomnia, clonidine or small doses of hydroxyzine remain options for nighttime use, depending on response. Discussions on medication adjustments, potential side effects, and the importance of following the management plan thoroughly were highlighted. I addressed her uncertainty towards medication with reassurance and structured plans for optimizing her regimen, including increasing the sertraline to 75 mg. Plan: Generalized Anxiety Disorder: Anxiety management continues to be a challenge with current treatment. The sertraline dose has been increased to 75 mg. Clonidine, starting at 0.1 mg at night, is introduced to possibly aid anxiety and provide nighttime sedation. Hydroxyzine should be minimized to manage potential daytime effects. Essential Hypertension: Hypertension management continues with current antihypertensives, with carvedilol maintained once daily. Addition of clonidine offers potential improvement for both blood pressure and anxiety. The patient should continue regular monitoring of blood pressure at home with efforts to achieve stable control. Pulse is 50-60's so do not want to increase coreg from QD at this time. SBP range is > 150 Patient was informed and verbally consented to the use of an ambient scribe for clinic note documentation during this visit. Total time spent caring for the patient today was 40 minutes. This includes time spent before the visit reviewing the chart, time spent during the visit, and time spent after the visit on documentation, reviewing laboratory results, diagnostic imaging, medications, performing a medically necessary evaluation, counseling on diagnoses, care coordination, ordering appropriate tests, ordering appropriate medications, review of tests performed by other providers, reporting test results with the patient, communication with other healthcare providers. RTO 4 weeks [facility] Medical History (Updated 05/09/24 @ 15:16 by Vane Ladd [facility]) Anxiety Skin cancer Surgical History (Updated 05/09/24 @ 15:[facility] Colon cancer screening declined (~2024) Mammogram declined (~2024) No pertinent past surgical history Family History (Updated 04/04/24 @ 13:35 by Savanna Arias MA) Sister Mental health disorder Cancer Parkinson disease Hypertension Paternal Grandmother Mental health disorder Brother Mental health disorder Cancer Parkinson disease Hypertension Cardiovascular disease Sister Cancer Father Hypertension Cardiovascular disease Mother Cardiovascular disease Son Diabetes Maternal Grandmother Diabetes Social History (Updated 04/04/24 @ 13:33 by Savanna Arias MA) Household Members: None Both parents involved: No Caregiver staying overnight: No Housing: House Are you a primary toddler caregiver to a significant other at home: No Do you presently have visiting nurse or other home services: No 75 years or older and lives alone: No Alcohol intake: current Alcohol intake frequency: a few times a week Patient Tobacco Use Status: Never used Tobacco e-Cigarette/Vaping Use: Never Used Second Hand Smoke Exposure: No service: No Current occupational status: retired Cognitive needs: No Hearing needs: No Vision needs: No Questionnaire PHQ-9 Over the last 2 weeks, how often have you been bothered by any of the following problems? 1. Little interest or pleasure in doing things: not at all 2. Feeling down, depressed, or hopeless: not at all 3. Trouble falling or staying asleep, or sleeping too much: not at all 4. Feeling tired or having little energy: not at all 5. Poor appetite or overeating: not at all 6. Feeling bad about yourself - or that you are a failure or have let yourself or your family down: not at all 7. Trouble concentrating on things, such as reading the newspaper or watching television: not at all 8. Moving or speaking so slowly that other people could have noticed. Or the opposite - being so fidgety or restless that you have been moving around a lot more than usual: not at all 9. Thoughts that you would be better off or of hurting yourself in some way: not at all Total score: 0 Depression Screening Interpretation: Negative Depression Screening Done: Yes 58626 - PHQ-9 Billing: Yes Source: Developed by Drs. Refugio Magana, Brennen Rosales and colleagues, with an educational carmenza from [employer]. Thrive Questionnaire Date Thrive assessed: 05/30/24 I am a: Patient What is your living situation today?: I have a steady place to live Within the past 12 months, did the food you bought not last and you didn't have the money to get more?: Never true Within the past 12 months, did you worry whether your food would run out before you got money to buy more?: Never true Do you have trouble paying for medicines?: No Do you have trouble getting transportation to medical appointments?: No Do you have trouble paying your heating and electricity bill?: No Do you have trouble taking care of your child, family member or friend?: No Do you have trouble with day-to-day activities such as bathing, preparing meals, shopping, managing finances, etc.?: No Are you currently unemployed and looking for a job?: No Are you interested in more education?: No Please select the resources that you would like help with: None Currently or been in a relationship where the following occur: No concerns reported THRIVE Score: 0 ROLF-7 AMB Questionnaire ROLF-7 Date ROLF - 7 assessed: 05/30/24 Feeling nervous, anxious, or on edge: 0 = Not at all Not being able to stop or control worryin = Not at all Worrying too much about different things: 0 = Not at all Trouble relaxin = Not at all Being so restless that it is hard to sit still: 0 = Not at all Becoming easily annoyed or irritable: 0 = Not at all Feeling afraid as if something awful might happen: 0 = Not at all Total ROLF-7 score (0-4 normal; 5-9 mild; 10-14 moderate; 15-21 severe): 0 Source: Developed by Drs. Refugio Magana, Brennen Rosales and colleagues, with an educational carmenza from [employer]. ROLF-7 Assessment Billing ROLF-7 Assessment Tool: ROLF-7 Assessment 73382 Physical exam (Primary Care) Vital Signs: Last Vital Signs Temp 97.2 F 05/30/24 09:43 Pulse 66 05/30/24 09:43 Resp 13 05/30/24 09:43 BP 150/84 H 05/30/24 10:19 Pulse Ox 98 05/30/24 09:43 Oxygen Delivery Method Room Air 05/30/24 09:43 BMI result Body Mass Index 26.5 Tobacco/Smoking Status: Tobacco use Status Tobacco use date assessed 05/30/24 05/30/24 09:45 Patient Tobacco Use Status Never used Tobacco 05/30/24 09:39 e-Cigarette/Vaping Use Never Used 05/30/24 09:39 PHQ-9: PHQ-9 Score PHQ-9: Total score 0 05/30/24 10:05 Depression Screening Interpretation: Negative Thrive Assessment: Date of Thrive Assessment Date Thrive assessed 05/30/24 05/30/24 09:45 Currently or been in a relationship where the following occur: No concerns reported Coding Level of Care Code Est Pt Level 5 (13279) Complex EM visit Add On G2211 Diagnoses ROLF (generalized anxiety disorder) F41.1 Primary hypertension I10 Hypertension type: primary hypertension Additional Codes ROLF-7 Assessment Billing - ROLF-7 Assessment Tool: ROLF-7 Assessment 12748 ([id number]) PHQ-9 - 04741 - PHQ-9 Billing: Yes ([id number]) Assessment & Plan Assessment & Plan (1) ROLF (generalized anxiety disorder): Code(s): F41.1 - Generalized anxiety disorder Category: Medical (2) HTN (hypertension): Code(s): I10 - Essential (primary) hypertension Category: Medical Qualifiers: Hypertension type: primary hypertension Qualified Code(s): I10 - Essential (primary) hypertension Plan . Medications: New clonidine HCl 0.1 mg PO BEDTIME 30 tabs 1RF Changed From sertraline 50 mg PO DAILY 30 tabs 1RF To sertraline 75 mg (1.5 x 50 mg) PO DAILY 45 tabs 1RF Refilled carvedilol (Coreg) must administer with a meal/food 3.125 mg PO DAILY 90 tabs 0RF Patient Instructions: - Continue taking carvedilol and lisinopril as prescribed. - Increase sertraline dose to 75 mg, using one and a half tablets daily. - Begin clonidine at 0.1 mg at night; monitor its effects on anxiety and sleep. - Discontinue hydroxyzine temporarily, reintroducing cautiously only if necessary. - Regularly monitor blood pressure at home and keep a log. - Schedule follow-up in four weeks or as symptoms dictate.
[2024-05-30 09:43] VITALS: BP 178/84; PULSE 66; RESP 13; TEMP 36.2; O2SAT 98; BMI 26.5
[2024-05-30 10:19] VITALS: BP 150/84
== END 2024-05-30 10:24 | disposition home or self-care (01) ==
LOC: HO.HMCFM 09:37
PROVIDERS: PCP Nurse Practitioner Family; Visit Provider Nurse Practitioner Family
DX: F41.1 Generalized anxiety disorder (principal); I10 Essential (primary) hypertension

== ENCOUNTER → 2024-05-30 09:37 | Outpatient (BNVA) | payer MEDICARE, OTHER, SELFPAY | PROVIDERS: PCP Nurse Practitioner Family; Visit Provider Nurse Practitioner Family | DX: F41.1 Generalized anxiety disorder (principal); I10 Essential (primary) hypertension | CPT/HCPCS: 96127; 99212 ==

== ENCOUNTER 2024-06-27 10:21 | Outpatient (AMB) | payer MEDICARE, OTHER, SELFPAY ==
--- NOTE | 2024-06-27 10:50 | MHC.PC.OV ---
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 Required: No Allergies clonidine Adverse Reaction (Verified 06/27/24 11:23) HTN Medication List - Last Reconciled 06/27/24 by Vane Ladd, CHEST PAIN COORDINATOR-BC carvedilol (Coreg) 3.125 mg PO DAILY hydroxyzine HCl 10 mg PO TID PRN lisinopril 5 mg PO DAILY miscellaneous medical supply (Blood Pressure Cuff) As directed sertraline 75 mg (1.5 x 50 mg) PO DAILY Tobacco use date assessed: 05/30/24 Fall risk assessment: No Falls in past year Last assessed Fall Risk: 06/27/24 Dental Screening Dental Screen Date: 06/27/24 Did you have a dental visit in the last 12 months?: Yes Did you have a dental problem in the last 6 months where you did not have access to dental care?: No Was dental information given to patient?: Patient has dentist HPI HPI Comments History of Present Illness Details 83 y/o F with basal cell ca, LVH, ROLF, Etoh use, PVD, HTN History of Present Illness - The patient is an 83-year-old female presenting for follow-up of anxiety and hypertension. - Hypertension has not improved with the addition of clonidine. The patient reports a heart rate drop to 49 bpm, indicating concern about the medication?s effect on her heart rate. - Anxiety remains problematic despite an increase in sertraline. Previous trials with clonidine and hydroxyzine provided insufficient relief. The patient describes ongoing anxiety throughout the day with spikes at certain times. - Attention is on finding an anxiety treatment plan that minimizes risk, particularly given her age and potential fall risks associated with some anxiolytic medications. - dtr would like ativan - pt cont to drink - home bp log reviewed, sbp > 150 since adding clonidine Exam: General: Well developed, well nourished, in no acute distress. Appears stated age. accompanied by dtr, Leni Head: Normocephalic, atraumatic. Lungs: Clear to auscultation bilaterally. No rales, rhonchi or wheeze noted. Good air flow in all conde. Heart: Regular rate, + PVC infrequent and improved since starting coreg, + 2/6 murmurs, click, rubs or gallops are noted. Extremities: No clubbing, cyanosis is noted. No edema ble, skin hairless, decreased PP bilat, skin intact Neurologic: Gait and station normal. Cranial Nerves 2-12 intact. Motor strength grossly symmetrical and intact. No sensory loss. Balance normal. Psych: Normal eye contact, affect and mood appropriate, and normal interactions. Patient is alert and appropriate to context. + Anxious Discussion Notes I discussed with the patient the current management of her hypertension and anxiety. Despite initial hopes for clonidine to help with both conditions, it appears to be ineffective for her blood pressure and may be contributing to her bradycardia. We agreed to discontinue clonidine and monitor her heart rate. We also discussed the benefits of increasing the lisinopril dose from 5 mg to 10 mg to better manage her hypertension. Regarding her anxiety, we explored buspirone as a safer alternative to ativan, discussing its flexibility in dosing and potential effectiveness without the risks associated with benzodiazepines for older patients. We discussed the importance of continuing to monitor her heart rate and blood pressure regularly and to communicate any concerns. Follow-up in six to eight weeks was recommended to evaluate her progress. Assessment and Plan 1. Essential Hypertension Clonidine was discontinued due to ineffectiveness and adverse effects. Lisinopril is increased to improve blood pressure control, with a focus on closely observing her vital signs. 2. Generalized Anxiety Disorder Introducing buspirone as an anxiolytic due to its safer profile for older adults. The patient is encouraged to titrate the dose gradually based on response to mitigate anxiety while minimizing adverse effects. Patient Instructions - Stop taking clonidine. - Start the new dose of lisinopril: take 10 mg once daily. - Begin buspirone at 10 mg once each morning. Increase gradually as needed for anxiety, but wait 7 to 10 days between increases, max 30mg QD - Continue monitoring blood pressure and pulse at home. - Return for follow-up in six to eight weeks, or sooner if symptoms worsen. Consent. Patient was informed and verbally consented to the use of an ambient scribe for clinic note documentation during this visit. Total time spent caring for the patient today was 40 minutes. This includes time spent before the visit reviewing the chart, time spent during the visit, and time spent after the visit on documentation, reviewing laboratory results, diagnostic imaging, medications, performing a medically necessary evaluation, counseling on diagnoses, care coordination, ordering appropriate tests, ordering appropriate medications, review of tests performed by other providers, reporting test results with the patient, communication with other healthcare providers. [facility] Medical History (Updated 05/09/24 @ 15:[address] [facility]) Anxiety Skin cancer Surgical History (Updated 05/09/24 @ 15:16 by [facility]ane Ladd [facility] Colon cancer screening declined (~2024) Mammogram declined (~2024) No pertinent past surgical history Family History (Updated 04/04/24 @ 13:35 by Savanna Arias MA) Sister Mental health disorder Cancer Parkinson disease Hypertension Paternal Grandmother Mental health disorder Brother Mental health disorder Cancer Parkinson disease Hypertension Cardiovascular disease Sister Cancer Father Hypertension Cardiovascular disease Mother Cardiovascular disease Son Diabetes Maternal Grandmother Diabetes Social History (Updated 04/04/24 @ 13:33 by Savanna Arias MA) Household Members: None Both parents involved: No Caregiver staying overnight: No Housing: House Are you a primary residential care facility manager to a significant other at home: No Do you presently have visiting nurse or other home services: No 75 years or older and lives alone: No Alcohol intake: current Alcohol intake frequency: a few times a week Patient Tobacco Use Status: Never used Tobacco e-Cigarette/Vaping Use: Never Used Second Hand Smoke Exposure: No service: No Current occupational status: retired Cognitive needs: No Hearing needs: No Vision needs: No Questionnaire PHQ-9 Over the last 2 weeks, how often have you been bothered by any of the following problems? 1. Little interest or pleasure in doing things: not at all 2. Feeling down, depressed, or hopeless: not at all 3. Trouble falling or staying asleep, or sleeping too much: not at all 4. Feeling tired or having little energy: not at all 5. Poor appetite or overeating: not at all 6. Feeling bad about yourself - or that you are a failure or have let yourself or your family down: not at all 7. Trouble concentrating on things, such as reading the newspaper or watching television: not at all 8. Moving or speaking so slowly that other people could have noticed. Or the opposite - being so fidgety or restless that you have been moving around a lot more than usual: not at all 9. Thoughts that you would be better off or of hurting yourself in some way: not at all Total score: 0 Depression Screening Interpretation: Negative Depression Screening Done: Yes 03753 - PHQ-9 Billing: Yes Source: Developed by Drs. Refugio Magana, Casie Aguilera, Brennen Murcia and colleagues, with an educational carmenza from [employer]. Thrive Questionnaire Date Thrive assessed: 06/27/24 I am a: Patient What is your living situation today?: I have a steady place to live Within the past 12 months, did the food you bought not last and you didn't have the money to get more?: Never true Within the past 12 months, did you worry whether your food would run out before you got money to buy more?: Never true Do you have trouble paying for medicines?: No Do you have trouble getting transportation to medical appointments?: No Do you have trouble paying your heating and electricity bill?: No Do you have trouble taking care of your child, family member or friend?: No Do you have trouble with day-to-day activities such as bathing, preparing meals, shopping, managing finances, etc.?: No Are you currently unemployed and looking for a job?: No Are you interested in more education?: No Please select the resources that you would like help with: None Currently or been in a relationship where the following occur: No concerns reported THRIVE Score: 0 ROLF-7 AMB Questionnaire ROLF-7 Date ROLF - 7 assessed: 06/27/24 Feeling nervous, anxious, or on edge: 0 = Not at all Not being able to stop or control worryin = Not at all Worrying too much about different things: 0 = Not at all Trouble relaxin = Not at all Being so restless that it is hard to sit still: 0 = Not at all Becoming easily annoyed or irritable: 0 = Not at all Feeling afraid as if something awful might happen: 0 = Not at all Total ROLF-7 score (0-4 normal; 5-9 mild; 10-14 moderate; 15-21 severe): 0 Source: Developed by Drs. Refugio Magana, Casie Aguilera, Brennen Murcia and colleagues, with an educational carmenza from [employer]. ROLF-7 Assessment Billing ROLF-7 Assessment Tool: ROLF-7 Assessment 21697 Physical exam (Primary Care) Vital Signs: Last Vital Signs Temp 97.2 F 06/27/24 10:54 Pulse 55 06/27/24 10:54 Resp 12 06/27/24 10:54 BP 140/80 H 06/27/24 11:25 Pulse Ox 97 06/27/24 10:54 Oxygen Delivery Method Room Air 06/27/24 10:54 BMI result Body Mass Index 27.0 Tobacco/Smoking Status: Tobacco use Status Tobacco use date assessed 05/30/24 06/27/24 10:51 Patient Tobacco Use Status Never used Tobacco 06/27/24 10:51 e-Cigarette/Vaping Use Never Used 06/27/24 10:51 PHQ-9: PHQ-9 Score PHQ-9: Total score 0 06/27/24 11:10 Depression Screening Interpretation: Negative Thrive Assessment: Date of Thrive Assessment Date Thrive assessed 06/27/24 06/27/24 10:51 Currently or been in a relationship where the following occur: No concerns reported Coding Level of Care Code Est Pt Level 5 (96895) Complex EM visit Add On G2211 Diagnoses ROLF (generalized anxiety disorder) F41.1 Primary hypertension I10 Hypertension type: primary hypertension Alcohol use F10.90 Additional Codes ROLF-7 Assessment Billing - ROLF-7 Assessment Tool: ROLF-7 Assessment 85599 ([id number]) PHQ-9 - 32777 - PHQ-9 Billing: Yes ([id number]) Assessment & Plan Assessment & Plan (1) ROLF (generalized anxiety disorder): Code(s): F41.1 - Generalized anxiety disorder Category: Medical (2) HTN (hypertension): Code(s): I10 - Essential (primary) hypertension Category: Medical Qualifiers: Hypertension type: primary hypertension Qualified Code(s): I10 - Essential (primary) hypertension (3) Alcohol use: Code(s): F10.90 - Alcohol use, unspecified, uncomplicated Category: Medical Plan . Medications: New lisinopril 10 mg PO DAILY 90 tabs 0RF buspirone 10 mg PO TID 90 tabs 1RF Refilled carvedilol (Coreg) must administer with a meal/food 3.125 mg PO DAILY 90 tabs 0RF Discontinued lisinopril Discontinued Reason: Doctor's Order 5 mg PO DAILY 90 tabs 0RF clonidine HCl Discontinued Reason: Doctor's Order 0.1 mg PO BEDTIME 30 tabs 1RF
[2024-06-27 10:54] VITALS: BP 158/80; PULSE 55; RESP 12; TEMP 36.2; O2SAT 97; BMI 27.0
[2024-06-27 11:25] VITALS: BP 140/80
== END 2024-06-27 11:30 | disposition home or self-care (01) ==
LOC: HO.HMCFM 10:22
PROVIDERS: PCP Nurse Practitioner Family; Visit Provider Nurse Practitioner Family
DX: I10 Essential (primary) hypertension (principal); F41.1 Generalized anxiety disorder; F10.90 Alcohol use, unspecified, uncomplicated

== ENCOUNTER → 2024-06-27 10:21 | Outpatient (BNVA) | payer MEDICARE, OTHER, SELFPAY | PROVIDERS: PCP Nurse Practitioner Family; Visit Provider Nurse Practitioner Family | DX: F41.1 Generalized anxiety disorder (principal); I10 Essential (primary) hypertension; F10.90 Alcohol use, unspecified, uncomplicated | CPT/HCPCS: 96127; 99212 ==

== ENCOUNTER 2024-07-14 19:40 | Inpatient (IN) | payer MEDICARE, OTHER, SELFPAY ==
--- NOTE | ~2024-07-14 | CT_ITS ---
CLINICAL HISTORY: garbeled speech, AMS CT head without contrast Comparison: None Findings: No intra-axial mass, midline shift, hydrocephalus, or acute hemorrhage. No significant atrophy-like change or white matter disease. The visualized paranasal sinuses and mastoid air cells are normal. The orbits are within normal limits. There is no acute fracture. IMPRESSION: 1. No acute intracranial findings. This document has been electronically signed by: Ashleigh Holloway MD on 07/14/2024 20:23:54
--- NOTE | ~2024-07-14 | CT_ITS ---
CLINICAL HISTORY: garbeled speech, AMS CT angiography head and neck with contrast. 3D Postprocessing. Comparison: CT - CT HEAD FOR STROKE - 07/14/24 19:54 EDT Findings: Aortic arch and cervical great vessels are patent with no aneurysm, dissection, hemodynamically significant stenoses, or occlusion. Complete occlusion of the left posterior superior MCA dominantM2 segment. Remainder of the major intracranial arteries are patent. No abnormal intracranial enhancement. The visualized thyroid gland is unremarkable. No cervical mass or fluid collection. Lung apices clear. No acute fracture. IMPRESSION: Complete occlusion of the left posterior superior MCA dominant M2 segment. Remainder of the major cervical and intracranial arteries are patent. This document has been electronically signed by: Ashleigh Holloway MD on 07/14/2024 20:51:57
--- NOTE | ~2024-07-14 | MR_ITS ---
EXAMINATION: MR BRAIN WITHOUT CONTRAST CLINICAL INFORMATION: Change in mental status. Dysarthria.. COMPARISON: Correlated to CT and CT angiogram head and neck dated July 14, 2024. TECHNIQUE: MRI of the brain was obtained using routine sequences without contrast. FINDINGS: There are few scattered punctate hyperintense T2 FLAIR restricted diffusion signal abnormality within the subcortical deep white matter of the left frontoparietal temporal lobes. There is a focal area of susceptibility and the subcortical white matter left temporoparietal region. There is susceptibility signal within the left MCA extending to the bifurcation/trifurcation. No gross mass effect midline shift, hydrocephalus or herniation. There is increased T1 and T2 FLAIR signal within the left internal jugular bulb, left transverse and sigmoid sinuses. Bilateral multifocal patchy and confluent deep periventricular white matter hyperintense T2 FLAIR signal involving centrum semiovale and chua radiata. Old lacunar infarcts in the right cerebellum, basal ganglia extracapsular. Prominence of the extra-axial CSF spaces cerebral sulci and ventricles. Sellar/suprasellar region demonstrated no gross signal abnormality or masses. Craniocervical junction demonstrates normal position of the cerebellar tonsils. MR/MR head/brain wo con IMPRESSION: Acute likely embolic stroke/ischemia left MCA territory with a focal hemorrhagic component in the left temporoparietal subcortical white matter. Probable embolus, M1, M2 and M3 segments, left MCA. Slow flow versus thrombus, left sigmoid and transverse sinuses and left internal jugular bulb. Electronically signed by: Loi Pina MD 07/15/2024 11:08 AM EDT
[2024-07-14 19:42] VITALS: BP 190/112; PULSE 69; RESP 20; TEMP 36.6; O2SAT 99; BMI 26.6
--- NOTE | 2024-07-14 19:42 | ED.GENADULT ---
HPI - General Adult General Chief complaint: Altered Mental Status Stated complaint: Stroke??? Time Seen by Provider: 07/14/24 19:46 Source: patient and family Mode of arrival: ambulatory Limitations: other (confused) History of Present Illness ED Provider: ANGE LAROSE narrative: 83 yo female with PMH of CHF, HTN, PVD, LVH here with c/o stroke like symptoms her last known well was yesterday at 630pm her daughter spoke to her on the phone - daughter called her again tonight and around 7pm noted aphasia/dysarthria. No other history. She recently started on new medications for HTN as she really hasn't been taking them. No new trauma. Not on thinners. Family discussed no one has spoken to her since 630pm yesterday 07/13/24 and the patient herself on arrival states she is fine. complaint: stroke symptoms Onset (ago): unknown Radiation: non-radiation Severity: mild Relieving factors: none Exacerbating factors: none Associated symptoms: denies other symptoms Treatments prior to arrival: none Related Data Home Medications ?Medication ?Instructions ?Recorded ?Confirmed acetaminophen 325 mg tablet 650 mg PO Q4H PRN Pain 07/15/24 07/15/24 (Tylenol) buspirone 10 mg tablet 10 mg PO BID 07/15/24 07/15/24 ibuprofen 200 mg tablet 400 mg PO Q6H PRN Pain 07/15/24 07/15/24 Previous Rx's ?Medication ?Instructions ?Recorded miscellaneous medical supply #1 ea 04/11/24 (Blood Pressure Cuff) sertraline 50 mg tablet 75 mg (1.5 x 50 mg) PO DAILY #45 05/30/24 tabs carvedilol 3.125 mg tablet (Coreg) 3.125 mg PO DAILY #90 tabs 06/27/24 lisinopril 10 mg tablet 10 mg PO DAILY #90 tabs 06/27/24 Allergies Allergy/AdvReac Type Severity Reaction Status Date / Time clonidine AdvReac HTN Verified 07/14/24 19:45 Review of Systems Review of Systems: ROS unable to be obtained due to altered mental status [facility] Past Medical History Attestation statement: The following information was validated with the patient. Source: old records reviewed Medical History (Updated 07/14/24 @ 23:16 by Bailey Hortensia, PA-C) ROLF (generalized anxiety disorder) HTN (hypertension) LVH (left ventricular hypertrophy) CHF (congestive heart failure) Skin cancer Anxiety Surgical History Mammogram declined (~2024) Colon cancer screening declined (~2024) No pertinent past surgical history Family History Family History (Updated 04/04/24 @ 13:35 by Savanna Arias MA) Sister Mental health disorder Cancer Parkinson disease Hypertension Paternal Grandmother Mental health disorder Brother Mental health disorder Cancer Parkinson disease Hypertension Cardiovascular disease Sister Cancer Father Hypertension Cardiovascular disease Mother Cardiovascular disease Son Diabetes Maternal Grandmother Diabetes Social History Social History Household Members: None Both parents involved: No Caregiver staying overnight: No Housing: House Are you a primary lawn care technician to a significant other at home: No Do you presently have visiting nurse or other home services: No (daughter checks in) 75 years or older and lives alone: No Alcohol intake: current Alcohol intake frequency: a few times a week Patient Tobacco Use Status: Never used Tobacco e-Cigarette/Vaping Use: Never Used Second Hand Smoke Exposure: No Advance Directives Date on File: 04/09/24 service: No Current occupational status: retired Cognitive needs: No Hearing needs: No Vision needs: No Physical Exam ED Vital Signs: Vital Signs - 24 hr 07/14/24 19:42 07/14/24 20:33 Temperature 97.9 F 97.0 F Pulse Rate 69 68 Respiratory Rate 20 19 Blood Pressure 190/112 H 182/103 H Pulse Oximetry 99 97 Oxygen Delivery Method Room Air Room Air BMI result Body Mass Index 26.6 Appearance: Alert. Confused having a hard time with her speech. Mild acute distress. Eyes: Pupils equal, round and reactive to light. denies vision loss, EOM intact ENT: Pharynx normal. Neck: Normal inspection. Neck supple. CVS: Normal heart rate and rhythm. Pulses normal. Respiratory: No respiratory distress. Breath sounds normal. Abdomen: Soft and nontender. Skin: Skin warm and dry. Normal skin color. Normal skin turgor. Extremities: No lower extremity edema. No calf ttp Neuro: confused, aphasia, dysarthria. otherwise no obvious deficitis. she laughs loudly at times as well. NIH Stroke Scale Internal: Initial- Upon Arrival Level of Consciousness: Alert Level of Consciousness Questions: Answers one question correctly Level of Consciousness Commands: Performs one task correctly Best Gaze: Normal Visual: No visual loss Facial Palsy: Normal Motor Arm (Right): No drift Motor Arm (Left): No drift Motor Leg (Right): No drift Motor Leg (Left): No drift Limb Ataxia: Absent Sensory: Normal Best Language: Mild to moderate aphasia Dysarthia: Mild to moderate dysarthria Extinction and Inattention: No abnormality Score: 4 Course Course Course Narrative: RME performed by Ethel Blake PA-C. Patient is an 83 year old assigned female at presenting to the emergency department with confusion. Patient's daughter states that the patient was speaking in jumbled words and was not making any sense at 1911. Detailed physical exam and review of systems are deferred to the customer solutions coordinator. Stroke alert activated. Reevaluation(s) Reevaluation #1: I spoke to our hospitalist and the family they want the neurointerventionalist contacted despite [address] 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 Medical treatment at this time. Keep blood pressure up. Medications Administered Generic Name Dose Route Start Last Admin Trade Name Freq PRN Reason Stop Dose Admin Aspirin 81 mg 07/15/24 09:00 07/15/24 07:58 Aspirin Enteric Coated 81 Mg Tablet.Dr PO 81 mg DAILY MARYBETH Administration Atorvastatin Calcium 40 mg 07/14/24 23:25 07/15/24 00:03 Atorvastatin Calcium 40 Mg Tablet PO 40 mg BEDTIME MARYBETH Administration Enoxaparin Sodium 40 mg 07/14/24 23:15 07/15/24 00:04 Enoxaparin Sodium 40 Mg/0.4 Ml Syringe SUBCUT 40 mg Q24H MARYBETH Administration Sodium Chloride 3 ml 07/15/24 00:00 07/15/24 08:03 0.9 % Sodium Chloride Flush 3 Ml Syringe IVFLUSH 3 ml QSHIFT MARYBETH Administration Discontinued Medications Generic Name Dose Route Start Last Admin Trade Name Freq PRN Reason Stop Dose Admin Aspirin 81 mg 07/14/24 22:03 07/14/24 22:50 Aspirin 81 Mg Tab.Chew PO 07/14/24 22:04 81 mg ONCE ONE Administration Diazepam 5 mg 07/14/24 23:00 07/14/24 23:26 Diazepam 10 Mg/2 Ml Cartridge IVPUSH 07/14/24 23:01 5 mg STAT STA Administration Iohexol 85 ml 07/14/24 20:10 07/14/24 20:11 Iohexol 350 Mg/Ml 100 Ml Infus..Btl IV 07/14/24 20:11 85 ml ONCE ONE Administration Medical Decision Making Medical Decision Making MDM Narrative: 83 yo female with PMH of CHF, HTN, PVD, LVH here with c/o speech issues, HTN and concern for stroke she states she is fine and didn't notice her symptoms. Her last known well is 630pm on 07/13/24. She is not a TNK candidate. She is 24+ hours of last known well despite the family trying to trace any contacts. She would not be a MT candidate either but it is reasonable to ask neurointerventionalist any input. Family is aware and agrees they want to proceed with MT discussion Differential Diagnosis Differential Diagnoses: The differential diagnosis associated with the presentation includes stroke, ICH Admission/Observation Consideration of admission/observation: Escalation of care including admission/observation considered admit for stroke work up Consult Healthcare Provider Management of the patient was discussed with: Hospitalist and Senior Microstrategy Developer Lab Data [facility] Lab Attestation statement: I reviewed the patient's lab results. 07/15/24 06:02 07/15/24 06:02 Labs: Lab Results 07/14/24 07/14/24 07/14/24 Range/Units 20:17 20:18 20:34 WBC 5.4 (4.8-10.8) X10*3/uL RBC 4.32 (4.20-5.50) X10*6/uL Hgb 13.9 (12.0-16.0) g/dl Hct 39.1 (37.0-47.0) % MCV 90.5 (80.0-98.0) fL MCH 32.2 (27.0-33.0) pg MCHC 35.5 H (31.0-35.0) g/dl RDW 13.1 (11.0-16.0) % Plt Count 208 (160-400) X10*3/uL MPV 9.5 (9.4-12.3) fL Immature Gran % (Auto) 0.4 (0.0-0.4) % Neut % (Auto) 67.6 (45-73) % Lymph % (Auto) 14.5 L (20-40) % [place] % (Auto) 13.8 H (2-11) % Eos % (Auto) 3.1 (0-4) % Baso % (Auto) 0.6 (0-2) % Lymph # (Auto) 0.8 L (1.2-4.9) X10*3/uL [place] # (Auto) 0.8 (0.1-1.2) X10*3/uL Eos # (Auto) 0.2 (0.0-0.4) X10*3/uL Baso # (Auto) 0.0 (0.0-0.2) X10*3/uL Abs Immat Gran (auto) 0.02 (0.00-0.03) X10*3/uL Absolute Neuts (auto) 3.7 (2.0-8.3) x10*3/uL Absolute Nucleated RBC 0.000 (0.0-0.012) X10*3/uL Nucleated RBC % (auto) 0.0 (0.0-0.2) /100WBC PT 10.9 (10.9-12.4) SEC Whole Blood PT 12.0 (11.1-13.5) sec INR 1.0 (0.9-1.1) Whole Blood INR 1.0 (0.9-1.1) APTT 26.9 (26.0-36.8) SEC Sodium 129 L (135-145) mmol/L Potassium 4.0 (3.3-5.1) mmol/L Chloride 97 (96-108) mmol/L Carbon Dioxide 25 (22-29) mmol/L Anion Gap 11 L (12-20) BUN 12 (9-16) mg/dL Creatinine 0.76 (0.5-1.4) mg/dL Estim Creat Clear Calc 54.8 Estimated GFR > 60 POC Glucose 114 (60-115) mg/dL Random Glucose 101 (60-115) mg/dL Calcium 8.5 D (8.4-10.2) mg/dL Troponin I High Sens 5.4 (<3.5-17.0) ng/L Triglycerides 79 (<150) mg/dL Cholesterol 280 H (<200) mg/dL LDL Cholesterol, Calc 176 H (<100) mg/dL HDL Cholesterol 89 (>40) mg/dL Urine Color Urine Appearance Urine pH (5.0-9.0) Ur Specific [place] (1.005-1.025) Urine Protein (Neg-Trace) mg/dL Urine Glucose (UA) (Negative) mg/dL Urine Ketones (Negative) mg/dL Urine Blood (Negative) Urine Nitrite (Negative) Ur Leukocyte Esterase (Negative) Urine RBC (0-2) /HPF Urine WBC (0-5) /HPF Ur Squamous Epith Cells (0-2) /HPF Urine Bacteria (None Seen) Hyaline Casts (0-2) /LPF Ethyl Alcohol < 10 mg/dL 07/14/24 Range/Units 21:39 WBC (4.8-10.8) X10*3/uL RBC (4.20-5.50) X10*6/uL Hgb (12.0-16.0) g/dl Hct (37.0-47.0) % MCV (80.0-98.0) fL MCH (27.0-33.0) pg MCHC (31.0-35.0) g/dl RDW (11.0-16.0) % Plt Count (160-400) X10*3/uL MPV (9.4-12.3) fL Immature Gran % (Auto) (0.0-0.4) % Neut % (Auto) (45-73) % Lymph % (Auto) (20-40) % [place] % (Auto) (2-11) % Eos % (Auto) (0-4) % Baso % (Auto) (0-2) % Lymph # (Auto) (1.2-4.9) X10*3/uL [place] # (Auto) (0.1-1.2) X10*3/uL Eos # (Auto) (0.0-0.4) X10*3/uL Baso # (Auto) (0.0-0.2) X10*3/uL Abs Immat Gran (auto) (0.00-0.03) X10*3/uL Absolute Neuts (auto) (2.0-8.3) x10*3/uL Absolute Nucleated RBC (0.0-0.012) X10*3/uL Nucleated RBC % (auto) (0.0-0.2) /100WBC PT (10.9-12.4) SEC Whole Blood PT (11.1-13.5) sec INR (0.9-1.1) Whole Blood INR (0.9-1.1) APTT (26.0-36.8) SEC Sodium (135-145) mmol/L Potassium (3.3-5.1) mmol/L Chloride (96-108) mmol/L Carbon Dioxide (22-29) mmol/L Anion Gap (12-20) BUN (9-16) mg/dL Creatinine (0.5-1.4) mg/dL Estim Creat Clear Calc Estimated GFR POC Glucose (60-115) mg/dL Random Glucose (60-115) mg/dL Calcium (8.4-10.2) mg/dL Troponin I High Sens (<3.5-17.0) ng/L Triglycerides (<150) mg/dL Cholesterol (<200) mg/dL LDL Cholesterol, Calc (<100) mg/dL HDL Cholesterol (>40) mg/dL Urine Color Yellow Urine Appearance Clear Urine pH 7.0 (5.0-9.0) Ur Specific [place] 1.020 (1.005-1.025) Urine Protein Negative (Neg-Trace) mg/dL Urine Glucose (UA) Negative (Negative) mg/dL Urine Ketones Negative (Negative) mg/dL Urine Blood Negative (Negative) Urine Nitrite Negative (Negative) Ur Leukocyte Esterase Moderate (2+) H (Negative) Urine RBC 0-2 (0-2) /HPF Urine WBC 6-10 H (0-5) /HPF Ur Squamous Epith Cells 0-2 (0-2) /HPF Urine Bacteria None Seen (None Seen) Hyaline Casts 0-2 (0-2) /LPF Ethyl Alcohol mg/dL Independent Interpretation I performed an independent interpretation of an: EKG and CT Scan (+ occlusion MCA M2 segment) Interpretation: Rate:83 Rhythm: NSR [place]: normal Normal P waves. Normal JAIME. Normal QRS complex. ST T wave : inverted t waves V1-V2 - V3, no HOLLIS qTC: 479 prior studies: no prior The study has been interpreted contemporaneously by me. . Radiology Impression Discussion of test interpretation with radiology: I have reviewed the radiologist's reading. External Record Review External record reviewed: Outpatient record Critical Care Time Critical Care Time Critical Care Time: Yes Total Critical Care Time: 45 Attestation: Time is exclusive of separately billable procedures. Time includes: direct patient care, patient reassessment, coordination of patient care, interpretation of data (laboratory data, pulse oximetry, arterial blood gases and chest xrays), review of patient's medical records, medical consultation and documentation of patient care. Procedures excluded from critical care time: electrocardiography. Discharge Plan Discharge Clinical Impression: Acute CVA (cerebrovascular accident) Patient Disposition: Admitted As Inpatient Interventions: Admission Worksheet (ED) Last Done: 07/14/24 23:05 Discharge Date/Time: 07/15/24 03:12
--- NOTE | 2024-07-14 19:45 | ECG_ITS ---
Test Reason : STROKE Blood Pressure : */* mmHG Vent. Rate : 70 BPM Atrial Rate : 70 BPM P-R Int : 200 ms QRS Dur : 110 ms QT Int : 426 ms P-R-T Axes : 54 3 96 degrees QTcB Int : 460 ms Normal sinus rhythm Left ventricular hypertrophy with repolarization abnormality ( [place] product ) Abnormal ECG No previous ECGs available Referred By: Ethel Balke Electronically Signed By: Abelardo Sanchez
[2024-07-14] MEDS: iohexoL 350 MG/ML 100 ML INFUS..BTL 85 ML IV (20:11)
[2024-07-14 20:22] LABS: Glucose, Whole Blood 114 mg/dL (60-115)
[2024-07-14 20:33] VITALS: BP 182/103; PULSE 68; RESP 19; TEMP 36.1; O2SAT 97
[2024-07-14 20:39] LABS: MANUAL DIFF FLAG NO
[2024-07-14 20:40] LABS: Basophils Percent Auto 0.6 % (0-2); Eosinophils Absolute Auto 0.2 X10*3/uL (0.0-0.4); Eosinophils Percent Auto 3.1 % (0-4); Hematocrit 39.1 % (37.0-47.0); Hemoglobin 13.9 g/dl (12.0-16.0); Imm Gran Abs Auto 0.02 X10*3/uL (0.00-0.03); Imm Gran Pct Auto 0.4 % (0.0-0.4); Lymphocytes Absolute Auto 0.8 X10*3/uL (1.2-4.9); Lymphocytes Percent Auto 14.5 % (20-40); Mean Corpuscular HGB Conc 35.5 g/dl (31.0-35.0); Mean Corpuscular Hemoglobin 32.2 pg (27.0-33.0); Mean Corpuscular Volume 90.5 fL (80.0-98.0); Mean Platelet Volume 9.5 fL (9.4-12.3); Monocytes Absolute Auto 0.8 X10*3/uL (0.1-1.2); Monocytes Percent Auto 13.8 % (2-11); Neutrophils Absolute Auto 3.7 x10*3/uL (2.0-8.3); Neutrophils Percent Auto 67.6 % (45-73); Platelet Count 208 X10*3/uL (160-400); Red Blood Count 4.32 X10*6/uL (4.20-5.50); Red Cell Distribution Width 13.1 % (11.0-16.0); White Blood Count 5.4 X10*3/uL (4.8-10.8)
[2024-07-14 20:52] LABS: Ethanol < 10 mg/dL
[2024-07-14 20:54] LABS: Anion Gap 11 (12-20); Blood Urea Nitrogen 12 mg/dL (9-16); Calcium 8.5 mg/dL (8.4-10.2); Carbon Dioxide 25 mmol/L (22-29); Chloride 97 mmol/L (96-108); Cholesterol 280 mg/dL (<200); Creatinine Clr Calc Pharmacy 54.8; Estimated Glomerular Filt Rate > 60; Glucose Random 101 mg/dL (60-115); HDL Cholesterol 89 mg/dL (>40); LDL Cholesterol Calculated 176 mg/dL (<100); Prothrombin Time 10.9 SEC (10.9-12.4); Sodium 129 mmol/L (135-145); Triglycerides 79 mg/dL (<150)
[2024-07-14 20:56] LABS: Partial Thromboplastin Time 26.9 SEC (26.0-36.8)
[2024-07-14 21:01] LABS: Troponin-I High Sensitivity 5.4 ng/L (<3.5-17.0)
[2024-07-14 21:02] LABS: Stroke Lab Use COMPLETE
[2024-07-14 21:44] LABS: Appearance Urine Clear; Color Urine Yellow; Glucose Urine UA Negative (Negative); Leukocyte Esterase Urine Moderate (2+) (Negative); Nitrite Urine Negative (Negative); UMIC TRIGGER UACC YES; Urine Blood Negative (Negative); Urine Ketones Negative (Negative); Urine Protein Negative (Neg-Trace)
[2024-07-14 21:49] LABS: Bacteria Urine None Seen (None Seen); Hyaline Casts Urine 0-2 /LPF (0-2); RBC Urine 0-2 /HPF (0-2); Squamous Epithelial Cell Urine 0-2 /HPF (0-2); UACC Culture Trigger YES
[2024-07-14] MEDS: Aspirin 81 MG TAB.CHEW PO (22:50)
--- NOTE | 2024-07-14 23:06 | PM.IMHP ---
History of Present Illness Date of Service: 07/14/24 <CARLOS Malik Last Filed: 07/14/24 23:17> Attending physician on admission: Jenna Birch <CARLOS Malik Last Filed: 07/14/24 23:17> Chief Complaint: Confusion, dysarthria, aphasia <CARLOS Malik Last Filed: 07/14/24 23:17> Patient is an 83-year-old female with a past medical history significant for HFrEF (EF 40% 04/16/2024), HTN, PVD, LVH, who presented to the ED due to confusion, dysarthria and aphasia noticed today around 19:00. The patient's daughter talked to her yesterday around 18:30 and called her today and noticed that she was not making sense. The patient is oriented to place but last inappropriately when answering questions. She denies any headache, chest pain, shortness of breath, change in vision, dizziness or urinary symptoms including frequency, urgency or dysuria. She has no previous history of a TIA or CVA. She has been able to ambulate normally and does not having any upper or lower extremity weakness. Her last known well time is unclear. <CARLOS Malik Last Filed: 07/14/24 23:17> Review of Systems Constitutional: Constitutional: Denies body ache(s), Denies chills, Denies fatigue, Denies fever(s) and Denies headache(s) <CARLOS Malik Last Filed: 07/14/24 23:17> Eyes: Eyes: Denies change in vision and Denies photophobia <CARLOS Malik Last Filed: 07/14/24 23:17> ENT: Denies headache(s), Denies nasal congestion, Denies nasal discharge and Denies sore throat <CARLOS Malik Last Filed: 07/14/24 23:17> Cardiovascular: Cardiovascular: Denies chest pain, Denies rapid heart rate, Denies leg edema, Denies lightheadedness and Denies dyspnea <CARLOS Malik Last Filed: 07/14/24 23:17> Respiratory: Respiratory: Denies chest congestion, Denies cough, Denies dyspnea and Denies wheezing <CARLOS Malik Last Filed: 07/14/24 23:17> Gastrointestinal: Gastrointestinal: Denies abdominal pain, Denies diarrhea, Denies nausea and Denies vomiting <CARLOS Malik Last Filed: 07/14/24 23:17> Genitourinary: Genitourinary: Denies difficulty voiding, Denies dysuria and Denies urinary urgency <CARLOS Malik Last Filed: 07/14/24 23:17> Musculoskeletal: Musculoskeletal: Denies myalgias <CARLOS Malik Last Filed: 07/14/24 23:17> Integumentary/Breasts: Skin/Breast: Denies rash <CARLOS Malik Last Filed: 07/14/24 23:17> Neurologic: Reports confusion and Denies headache(s) <Bailey Bazan PA-C - Last Filed: 07/14/24 23:17> Psychiatric: Psychiatric: Reports confusion <CARLOS Malik Last Filed: 07/14/24 23:17> Endocrine: Endocrine: Denies fatigue <CARLOS Malik Last Filed: 07/14/24 23:17> Hematologic/Lymphatic: Hematologic/Lymphatic: Denies easy bleeding and Denies easy bruising <Bailey Bazan PA-C - Last Filed: 07/14/24 23:17> Allergic/Immunologic: Allergic/Immunologic: Denies wheezing <Bailey Bazan PA-C Last Filed: 07/14/24 23:17> [facility] Medical History: Medical History (Updated 07/14/24 @ 23:16 by Bailey Bazan PA-C) ROLF (generalized anxiety disorder) HTN (hypertension) LVH (left ventricular hypertrophy) CHF (congestive heart failure) Skin cancer Anxiety <CARLOS Malik Last Filed: 07/14/24 23:17> Functional capacity: independent ambulation <Bailey Bazan PA-C - Last Filed: 07/14/24 23:17> Family History: Family History (Updated 04/04/24 @ 13:35 by Savanna Arias MA) Sister Mental health disorder Cancer Parkinson disease Hypertension Paternal Grandmother Mental health disorder Brother Mental health disorder Cancer Parkinson disease Hypertension Cardiovascular disease Sister Cancer Father Hypertension Cardiovascular disease Mother Cardiovascular disease Son Diabetes Maternal Grandmother Diabetes <Bailey Bazan PA-C - Last Filed: 07/14/24 23:17> Surgical History: Surgical History Mammogram declined (~2024) Colon cancer screening declined (~2024) No pertinent past surgical history <CARLOS Malik Last Filed: 07/14/24 23:17> Social History: Social History Household Members: None Housing: House Are you a primary healthcare administration intern to a significant other at home: No Do you presently have visiting nurse or other home services: No Alcohol intake: current Alcohol intake frequency: a few times a week Patient Tobacco Use Status: Never used Tobacco e-Cigarette/Vaping Use: Never Used Second Hand Smoke Exposure: No Advance Directives: Yes Advance Directives on File: Yes Advance Directives Date on File: 04/09/24 service: No Current occupational status: retired Cognitive needs: No Hearing needs: No Vision needs: No <CARLOS Malik Last Filed: 07/14/24 23:17> Narrative: No smoking, drinks a few alcoholic beverages per week, no drug use <CARLOS Malik Last Filed: 07/14/24 23:17> Meds Allergies/Adverse reactions: Allergies Allergy/AdvReac Type Severity Reaction Status Date / Time clonidine AdvReac HTN Verified 07/14/24 19:45 <CARLOS Malik Last Filed: 07/14/24 23:17> Active Medications: Current Medications Acetaminophen (Acetaminophen 325 Mg Tablet) 975 mg PO Q6H PRN PRN Reason: Pain, Mild 1-3,fever,headache Aspirin (Aspirin Enteric Coated 81 Mg Tablet.Dr) 81 mg PO DAILY MARYBETH Calcium Carbonate (Calcium Carbonate 750 Mg Tab.Chew) 750 mg PO Q4H PRN PRN Reason: Heartburn Magnesium Hydroxide (Milk Of Magnesia 30 Ml Oral.Susp) 30 ml PO DAILY PRN PRN Reason: Constipation Melatonin (Melatonin 3 Mg Tablet) 6 mg PO BEDTIME PRN PRN Reason: Insomnia Ondansetron HCl (Ondansetron Hcl 4 Mg/2 Ml Vial) 4 mg IVPUSH Q8H PRN PRN Reason: Nausea and Vomiting <CARLOS Malik Last Filed: 07/14/24 23:17> Physical Exam Vital Signs and Narrative: Vital Signs: Last Vital Signs Temp 97.0 F 07/14/24 20:33 Pulse 68 07/14/24 20:33 Resp 19 07/14/24 20:33 BP 182/103 H 07/14/24 20:33 Pulse Ox 97 07/14/24 20:33 O2 Del Method Room Air 07/14/24 20:33 BMI result Body Mass Index 26.6 <CARLOS Malik Last Filed: 07/14/24 23:17> General: Alert to person and place, no acute distress. laughs inappropriately when responding to questions. stops train of thought mid sentence. Resp: CTA bilaterally CVS: S1, S2, RRR GI: +BS, NT, no distention Skin: Warm, dry Neuro: Cranial nerves II-XII grossly intact bilaterally. Motor grossly intact bilaterally. sensation and strength intact and equal bilaterally. Extremities: No LE edema Psych: Appropriate affect <CARLOS Malik Last Filed: 07/14/24 23:17> Const: General: confusion <CARLOS Malik Last Filed: 07/14/24 23:17> Orientation/consciousness: confusion <CARLOS Malik Last Filed: 07/14/24 23:17> Eyes: Direct Ophthalmoscopy: No photophobia <CARLOS Malik Last Filed: 07/14/24 23:17> Neuro: General: confusion <CARLOS Malik Last Filed: 07/14/24 23:17> Results Labs CBC and Chem 7: 07/14/24 20:34 07/14/24 20:34 <Bailey Bazan PA-C - Last Filed: 07/14/24 23:17> Labs: Laboratory Results - last 24 hr 07/14/24 07/14/24 07/14/24 20:17 20:18 20:34 MCV 90.5 MCH 32.2 MCHC 35.5 H RDW 13.1 Plt Count 208 MPV 9.5 Immature Gran % (Auto) 0.4 Neut % (Auto) 67.6 Lymph % (Auto) 14.5 L [place] % (Auto) 13.8 H Eos % (Auto) 3.1 Baso % (Auto) 0.6 Lymph # (Auto) 0.8 L [place] # (Auto) 0.8 Eos # (Auto) 0.2 Baso # (Auto) 0.0 Abs Immat Gran (auto) 0.02 Absolute Neuts (auto) 3.7 Absolute Nucleated RBC 0.000 Nucleated RBC % (auto) 0.0 PT 10.9 Whole Blood PT 12.0 INR 1.0 Whole Blood INR 1.0 APTT 26.9 Anion Gap 11 L Estim Creat Clear Calc 54.8 Estimated GFR > 60 POC Glucose 114 Random Glucose 101 Calcium 8.5 D Triglycerides 79 Cholesterol 280 H LDL Cholesterol, Calc 176 H HDL Cholesterol 89 Urine Color Urine Appearance Urine pH Ur Specific Oil Trough Urine Protein Urine Glucose (UA) Urine Ketones Urine Blood Urine Nitrite Ur Leukocyte Esterase Urine RBC Urine WBC Ur Squamous Epith Cells Urine Bacteria Hyaline Casts Ethyl Alcohol < 10 07/14/24 21:39 MCV MCH MCHC RDW Plt Count MPV Immature Gran % (Auto) Neut % (Auto) Lymph % (Auto) [place] % (Auto) Eos % (Auto) Baso % (Auto) Lymph # (Auto) [place] # (Auto) Eos # (Auto) Baso # (Auto) Abs Immat Gran (auto) Absolute Neuts (auto) Absolute Nucleated RBC Nucleated RBC % (auto) PT Whole Blood PT INR Whole Blood INR APTT Anion Gap Estim Creat Clear Calc Estimated GFR POC Glucose Random Glucose Calcium Triglycerides Cholesterol LDL Cholesterol, Calc HDL Cholesterol Urine Color Yellow Urine Appearance Clear Urine pH 7.0 Ur Specific Oil Trough 1.020 Urine Protein Negative Urine Glucose (UA) Negative Urine Ketones Negative Urine Blood Negative Urine Nitrite Negative Ur Leukocyte Esterase Moderate (2+) H Urine RBC 0-2 Urine WBC 6-10 H Ur Squamous Epith Cells 0-2 Urine Bacteria None Seen Hyaline Casts 0-2 Ethyl Alcohol <Bailey Bazan PA-C - Last Filed: 07/14/24 23:17> Assessment and Plan (1) Acute CVA (cerebrovascular accident): Status: Acute <Bailey Bazan PA-C - Last Filed: 07/14/24 23:17> (2) Anxiety: Status: Acute <Bailey Bazan PA-C - Last Filed: 07/14/24 23:17> Patient is an 83-year-old female with a past medical history significant for HFrEF (EF 40% 04/16/2024), HTN, PVD, LVH, who presented to the ED due to confusion, dysarthria and aphasia noticed today around 19:00. Acute CVA -- left post MCA M2 segment - head CT negative - CTA head and neck with complete occlusion left post MCA M2 segment - last known well time greater than 4 hours, not TNK candidate - UA negative - troponin negative - ED provider spoke with neuro interventionalist who reviewed scans and suggested Subacute area infarct, some subtle changes more acute, CTA has some IC stenosis left MCA, other branches are stenotic. Medical treatment at this time. Keep blood pressure up - allow permissive hypertension - ASA 81 mg given, continue daily - lipid panel with elevated LDL and cholesterol - neurology consult - patient will need to start statin, appreciate neurology input - MRI in a.m. - echo with bubble study - PT/OT eval - NPO pending bedside swallow - neuro checks q.2h Anxiety - patient with uncontrolled anxiety, may need med adjustment - psych consult Chronic HFrEF, no acute exacerbation - continue home meds when appropriate HTN - resume home meds when appropriate DNI VTE prophylaxis: Lovenox Patient with acute CVA requiring admission for at least 2 midnights stay for further evaluation and monitoring. <Bailey Bazan PA-C - Last Filed: 07/14/24 23:17> Patient is an 83-year-old female with a past medical history significant for HFrEF (EF 40% 04/16/2024), HTN, PVD, LVH, who presented to the ED due to confusion, dysarthria and aphasia noticed today around 19:00. Acute CVA -- left post MCA M2 segment - head CT negative - CTA head and neck with complete occlusion left post MCA M2 segment - last known well time greater than 24 hours, not TNK candidate - UA negative - troponin negative - ED provider spoke with neuro interventionalist who reviewed scans and suggested Subacute area infarct, some subtle changes more acute, CTA has some IC stenosis left MCA, other branches are stenotic. Medical treatment at this time. Keep blood pressure up - allow permissive hypertension - ASA 81 mg given, continue daily - lipid panel with elevated LDL and cholesterol - neurology consult - patient will need to start statin, appreciate neurology input - MRI in a.m. - echo with bubble study - PT/OT eval - NPO pending bedside swallow - neuro checks q.2h Anxiety - patient with uncontrolled anxiety, may need med adjustment - psych consult Chronic HFrEF, no acute exacerbation - continue home meds when appropriate HTN - resume home meds when appropriate DNI VTE prophylaxis: Lovenox Patient with acute CVA requiring admission for at least 2 midnights stay for further evaluation and monitoring. <Jenna Birch MD - Last Filed: 07/14/24 23:22> Quality Stroke Does the patient have a stroke diagnosis?: Yes <Bailey Bazan PA-C - Last Filed: 07/14/24 23:17> Reason for No Anti-thrombotic by Day Two: Contraindicated <Bailey Bazan PA-C - Last Filed: 07/14/24 23:17> VTE Prior VTE?: No <Bailey Bazan PA-C - Last Filed: 07/14/24 23:17> VTE Risk Level:: Medical - moderate - high <Bailey Bazan PA-C - Last Filed: 07/14/24 23:17> VTE Device Contraindication: Treatment Not Indicated <Bailey Bazan PA-C - Last Filed: 07/14/24 23:17> VTE Drug Contraindication: N/A - Med Ordered <Bailey Bazan PA-C - Last Filed: 07/14/24 23:17>
[2024-07-14] MEDS: diazePAM 10 MG/2 ML CARTRIDGE 5 MG IVPUSH (23:26)
--- NOTE | 2024-07-14 23:41 | PC.NURSE ---
Took report from off-going RN at 2300 hours. Upon introducing myself, pt is found to be A & O X 4, answering questions appropriately. Pt is an 83 y/o pleasant female who is being admitted for acute stroke with an unknown last well time. Pt presents with speech changes/deficits and problems with word recall. No motor deficits found, moving all extremities as anticipated and leather heel breaster/function is equal and strong. Family remains at the bedside. Pt was medicated for anxiety with valium prior to admission. Immedicately following medication administration, pt's speech changed and became garbled. Family also noted a slight, brief facial droop that resolved without intervention before further assessment. Hospitalist and ED provider made aware. Neuro reassesment without finding except change in speech.
[2024-07-15] MEDS: Atorvastatin Calcium 40 MG TABLET PO ×2 (00:03→20:25)
[2024-07-15] MEDS: Enoxaparin Sodium 40 MG/0.4 ML SYRINGE SUBCUT (00:04)
[2024-07-15] MEDS: 0.9 % Sodium Chloride Flush 3 ML SYRINGE IVFLUSH ×3 (00:38→20:29)
--- NOTE | 2024-07-15 01:08 | PC.NURSE ---
At midnight swallow screen was performed prior to PO medication administration without finding or issue. No gagging or choking noted. PO medication administered without issue or concern.
[2024-07-15 03:19] VITALS: BMI 26.6
[2024-07-15 04:00] VITALS: BP 188/96; PULSE 64; RESP 17; TEMP 36.6; O2SAT 95
[2024-07-15 06:40] LABS: Hematocrit 41.6 % (37.0-47.0); Hemoglobin 14.2 g/dl (12.0-16.0); Mean Corpuscular HGB Conc 34.1 g/dl (31.0-35.0); Mean Corpuscular Hemoglobin 31.9 pg (27.0-33.0); Mean Corpuscular Volume 93.5 fL (80.0-98.0); Platelet Count 199 X10*3/uL (160-400); Red Blood Count 4.45 X10*6/uL (4.20-5.50); Red Cell Distribution Width 13.1 % (11.0-16.0); White Blood Count 4.7 X10*3/uL (4.8-10.8)
[2024-07-15 06:49] LABS: Anion Gap 11 (12-20); Blood Urea Nitrogen 9 mg/dL (9-16); Calcium 8.6 mg/dL (8.4-10.2); Carbon Dioxide 27 mmol/L (22-29); Chloride 100 mmol/L (96-108); Creatinine Clr Calc Pharmacy 58.7; Estimated Glomerular Filt Rate > 60; Glucose Random 103 mg/dL (60-115); Potassium 3.9 mmol/L (3.3-5.1); Sodium 134 mmol/L (135-145)
--- NOTE | 2024-07-15 07:00 | CA_ITS ---
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 There is normal left ventricular wall thickness. The left ventricular systolic function is moderately decreased. The visually estimated ejection fraction is between 30-35%. - Normal right ventricular cavity size and systolic function. - The left atrium is severely dilated. - There is no evidence of interatrial shunt by agitated saline. - There is mild dilatation of the ascending aorta measuring 4.00 cm. - The inferior vena cava is collapsed, consistent with reduced intravascular volume. Findings Procedure Information Contrast agent, definity, is being given per protocol without apparent complications. Left Ventricle Mildly increased left ventricular cavity size. There is normal left ventricular wall thickness. The left ventricular systolic function is moderately decreased. The visually estimated ejection fraction is between 30 35%. There is moderate global hypokinesis. Diastolic function is indeterminate on the basis of available data. Right Ventricle Normal right ventricular cavity size and systolic function. Atria The left atrium is severely dilated. There is no evidence of interatrial shunt by agitated saline. The right atrium is normal in size. Aortic Valve Normal aortic valve structure and function. There is no aortic valve stenosis. There is no aortic valve regurgitation. Mitral Valve The mitral valve appears normal. There is trace mitral valve regurgitation. There is no mitral valve stenosis. Pulmonic Valve The pulmonic valve is normal. There is trace pulmonic valve regurgitation. Tricuspid Valve Normal tricuspid valve structure. There is trace tricuspid valve regurgitation. The right ventricular systolic pressure is 29 mmHg. Low right atrial pressure. There is no evidence of pulmonary hypertension. Great Vessels There is mild dilatation of the ascending aorta measuring 4.00 cm. The visualized portions of the pulmonary artery and branches are normal. Venous The inferior vena cava is collapsed, consistent with reduced intravascular volume. Pericardium/Pleural There is no evidence of pericardial effusion. Prior Study Comparison Changes noted compared to prior study dated: 04/16/2024. EF 30-35%, LV mildly dilated. Measurements 2D Linear Measurements IVSd: 1.12 0.6-0.9/0.6-1.0 cm LVIDd: 5.97 3.9-5.3/4.2-5.9 cm LVIDd Index: 3.41 2.4-3.2/2.2-3.1 cm/m2 LVIDs: 5.25 2.0-3.6 cm LVPWd: 0.88 0.7-1.1 cm LA Diam: 4.00 2.7-3.8/3.0-4.0 cm LAIDs Index: 2.29 1.5-2.3 cm/m2 LV Mass: 305.03 67-162/88-224 g LV Mass Index: 174.30 43-95/49-115 g/m2 LVOT Diam: 2.20 3.0+(-)1.3 cm 2D Systolic Function EF 4C: 29.10 >55% EF 2C: 29.50 >55% EF BiP: 30.00 >55% Mitral Valve MV Pk E: 0.54 MV PK A: 0.68 MV Decel Time: 259.00 E/A: 0.80 E'Lateral: 4.90 E'Medial: 2.50 E/E' Med: 21.40 E/E' Lat: 10.90 PHT: 76.00 MVA PHT: 2.89 Decel [place]: 2.07 Aortic Valve AoV Pk Adán: 1.41 AoV Mn Adán: 0.96 AoV VTI: 0.28 AoV Pk Grad: 8.00 Aov Mn Grad: 4.00 MICHELE Cont.VTI: 1.87 LVOT LVOT Pk Adán: 0.68 LVOT Mn Adán: 0.42 LVOT VTI: 0.14 LVOT Pk Grad: 2.00 LVOT Mn Grad: 1.00 LVOT Diam: 2.20 LVOT Area: 3.80 Diastolic Function MV Pk E: 0.54 MV Pk A: 0.68 E/A: 0.80 E'Medial: 2.50 E/E' Med: 21.40 E' Laterial: 4.90 E/E' Lat: 10.90 Right Ventricle TAPSE (mm): 18.00 TVS' Adán: 9.90 Tricuspid Valve TR Pk Adán: 2.57 TR Pk Grad: 26.00 RA Press: 3.00 RVSP: 29.00 Great Vessels Aorta Sinus of Valsalva: 3.29 2.0-3.5 cm Ao Asc: 4.00 2.1-3.4 cm Updated in Other Vendor System with Status of Final Abelardo Sanchez MD electronically signed on 07/15/2024 2:53:46 PM with status of Final
[2024-07-15 07:07] VITALS: BP 182/91; PULSE 56; RESP 18; TEMP 36.1; O2SAT 96
[2024-07-15] MEDS: Aspirin Enteric Coated 81 MG TABLET.DR PO (07:58)
--- NOTE | 2024-07-15 08:51 | PHA.MEDREC ---
Addendum entered by Ryan Perez RPh 07/15/24 11:07: Med rec was reviewed by Asher. Original Note: Pharmacy Consult ? Medication Reconciliation Pharmacy has completed the medication reconciliation. Spoke with pt daughter at bedside and she was able to confirm her mothers medications. Patient taking Buspirone 10mg tab BID now, daughter stating the pt got too dizzy/drowsy when taking TID. Also patient is not taking Hydroxyzine per the daughter, stating the pt was getting too drowsy when taking it.
[2024-07-15] MEDS: LORazepam 0.5 MG TABLET 0.25 MG PO (10:14)
--- NOTE | 2024-07-15 10:33 | MHC.OT.ID ---
[address] [phone] F: [phone] Occupational Therapy Inpatient Daily Note Patient Name: Mervat Eli Start Time: End Time: Visit Duration: Billable Time: Pain Score: Pain Location: Self-Care Feeding: Grooming: Washing: Dressing: Toileting: Functional Mobility Bed Mobility: Transfers: Ambulation: Therapeutic Activities IADL/Homecare: Balance: Therapeutic Exercise: Cognition: Assessment Assessment:Pt unable to be seen due to diagnostic testing being perfromed and taken for MRI at 9:50 AM inpt, OT only available in Morning 07/15 - will check back Plan Plan of Care: D/C Today: Electronically Signed By: Areli Daniel OTR/L Reviewed/agree with student documentation: Therapist:
[2024-07-15 11:55] VITALS: BP 171/84; PULSE 65; RESP 17; TEMP 36.3; O2SAT 99
--- NOTE | 2024-07-15 12:05 | P.PNIM_ITS ---
Subjective Subjective Date of Service: 07/16/24 Interval History: f/u on left MCA stroke with word finding difficulty, had an episode this morning MRI confirms likely embolic stroke Physical Exam 2 Vital Signs: Vital Signs: Last Vital Signs Temp 97.4 F 07/15/24 11:55 Pulse 65 07/15/24 11:55 Resp 17 07/15/24 11:55 BP 171/84 H 07/15/24 11:55 Pulse Ox 99 07/15/24 11:55 O2 Del Method Room Air 07/15/24 11:55 BMI result Body Mass Index 26.6 Const: Other: General: AO X 3, no acute distress Resp: CTA bilateral CVS: S1,S2,RRR GI: +BS, NT, no distention Skin: No rash Neuro: motor grossly intact, no weakness, has word finding difficulty, no droop Psych: appropriate affect Objective Data Active Medications Acetaminophen (Acetaminophen 325 Mg Tablet) 975 mg PO Q6H PRN PRN Reason: Pain, Mild 1-3,fever,headache Aspirin (Aspirin Enteric Coated 81 Mg Tablet.) 81 mg PO DAILY [facility] Last Admin: 07/15/24 07:58 Dose: 81 mg Documented By: MICHELLE Atorvastatin Calcium (Atorvastatin Calcium 40 Mg Tablet) 40 mg PO BEDTIME [facility] Last Admin: 07/15/24 00:03 Dose: 40 mg Documented By: DONALDO Calcium Carbonate (Calcium Carbonate 750 Mg Tab.Chew) 750 mg PO Q4H PRN PRN Reason: Heartburn Enoxaparin Sodium (Enoxaparin Sodium 40 Mg/0.4 Ml Syringe) 40 mg SUBCUT Q24H [facility] Last Admin: 07/15/24 00:04 Dose: 40 mg Documented By: DONALDO Magnesium Hydroxide (Milk Of Magnesia 30 Ml Oral.Susp) 30 ml PO DAILY PRN PRN Reason: Constipation Melatonin (Melatonin 3 Mg Tablet) 6 mg PO BEDTIME PRN PRN Reason: Insomnia Morphine Sulfate (Morphine Sulfate 4 Mg/Ml Cartridge) 2 mg IVPUSH Q4H PRN; Protocol PRN Reason: Pain, Severe (Pain Scale 7-10) Ondansetron HCl (Ondansetron Hcl 4 Mg/2 Ml Vial) 4 mg IVPUSH Q8H PRN PRN Reason: Nausea and Vomiting Oxycodone HCl (Oxycodone Hcl Immed Release 5 Mg Tablet) 5 mg PO Q6H PRN PRN Reason: Pain, Moderate(Pain Scale 4-6) Sodium Chloride (0.9 % Sodium Chloride Flush 3 Ml Syringe) 3 ml IVFLUSH QSHIFT [facility] Last Admin: 07/15/24 08:03 Dose: 3 ml Documented By: MICHELLE Labs 07/16/24 06:08 07/16/24 06:08 Labs: Laboratory Results - last 24 hr 07/14/24 07/14/24 07/14/24 20:17 20:18 20:34 MCV 90.5 MCH 32.2 MCHC 35.5 H RDW 13.1 Plt Count 208 MPV 9.5 Immature Gran % (Auto) 0.4 Neut % (Auto) 67.6 Lymph % (Auto) 14.5 L [place] % (Auto) 13.8 H Eos % (Auto) 3.1 Baso % (Auto) 0.6 Lymph # (Auto) 0.8 L [place] # (Auto) 0.8 Eos # (Auto) 0.2 Baso # (Auto) 0.0 Abs Immat Gran (auto) 0.02 Absolute Neuts (auto) 3.7 Absolute Nucleated RBC 0.000 Nucleated RBC % (auto) 0.0 PT 10.9 Whole Blood PT 12.0 INR 1.0 Whole Blood INR 1.0 APTT 26.9 Anion Gap 11 L Estim Creat Clear Calc 54.8 Estimated GFR > 60 POC Glucose 114 Random Glucose 101 Calcium 8.5 D Triglycerides 79 Cholesterol 280 H LDL Cholesterol, Calc 176 H HDL Cholesterol 89 Urine Color Urine Appearance Urine pH Ur Specific [place] Urine Protein Urine Glucose (UA) Urine Ketones Urine Blood Urine Nitrite Ur Leukocyte Esterase Urine RBC Urine WBC Ur Squamous Epith Cells Urine Bacteria Hyaline Casts Ethyl Alcohol < 10 07/14/24 07/15/24 21:39 06:02 MCV 93.5 MCH 31.9 MCHC 34.1 RDW 13.1 Plt Count 199 MPV 10.0 Immature Gran % (Auto) Neut % (Auto) Lymph % (Auto) [place] % (Auto) Eos % (Auto) Baso % (Auto) Lymph # (Auto) [place] # (Auto) Eos # (Auto) Baso # (Auto) Abs Immat Gran (auto) Absolute Neuts (auto) Absolute Nucleated RBC 0.000 Nucleated RBC % (auto) 0.0 PT Whole Blood PT INR Whole Blood INR APTT Anion Gap 11 L Estim Creat Clear Calc 58.7 Estimated GFR > 60 POC Glucose Random Glucose 103 Calcium 8.6 Triglycerides Cholesterol LDL Cholesterol, Calc HDL Cholesterol Urine Color Yellow Urine Appearance Clear Urine pH 7.0 Ur Specific [place] 1.020 Urine Protein Negative Urine Glucose (UA) Negative Urine Ketones Negative Urine Blood Negative Urine Nitrite Negative Ur Leukocyte Esterase Moderate (2+) H Urine RBC 0-2 Urine WBC 6-10 H Ur Squamous Epith Cells 0-2 Urine Bacteria None Seen Hyaline Casts 0-2 Ethyl Alcohol Microbiology Microbiology Results: Microbiology 07/14/24 21:50 Urine Culture - Preliminary Urine clean catch - Clean Catch Midstream No growth to date. Assessment and Plan (1) Acute CVA (cerebrovascular accident): Status: Acute Plan Patient is an 83-year-old female with a past medical history significant for HFrEF (EF 40% 04/16/2024), HTN, PVD, LVH, who presented to the ED due to confusion, dysarthria and aphasia noticed today around 19:00. Acute CVA -- left post MCA M2 segment. head CT negative. CTA head and neck with complete occlusion left post MCA M2 segment. last known well time greater than 24 hours, not TNK candidate. MRI: A cute likely embolic stroke/ischemia left MCA territory with a focal hemorrhagic component in the left temporoparietal subcortical white matter. Probable embolus, M1, M2 and M3 segments, left MCA. Slow flow versus thrombus, left sigmoid and transverse sinuses and left internal jugular bulb. For now medical management with ASA, statin and awaiting further recommendation from Neuro. Permissive HTN for now PT, OT, speech eval cardiac monitoring, possible need for event monitor later echo pending Neuro consult pending Anxiety. patient with uncontrolled anxiety, may need med adjustment psych consult continue Sertraline Chronic HFrEF, no acute exacerbation continue home meds when appropriate HTN resume home meds when appropriate DNI VTE prophylaxis: Lovenox Patient with acute CVA requiring admission for at least 2 midnights stay for further evaluation and monitoring. Quality Stroke Does the patient have a stroke diagnosis?: Yes Reason for No Anti-thrombotic by Day Two: Contraindicated VTE Prior VTE?: No VTE Risk Level:: Medical - moderate - high VTE Device Contraindication: Treatment Not Indicated VTE Drug Contraindication: N/A - Med Ordered
[2024-07-15] MEDS: Sertraline HCL 25 MG TABLET 75 MG PO (12:27)
--- NOTE | 2024-07-15 15:05 | PC.NURSE ---
At 9:40 Am this nurse was called into the pts room due to pt family member stating that pt seemed more confused. Observations included pt not being able to state name or and only stating the word yes and pt appeared to have left sided facial droop as well as left sided weakness.At this time this nurse called and rapid stroke alert and MD came to bedside and then pt was transferred to MRI.
--- NOTE | 2024-07-15 15:16 | MHC.CM.PN ---
IMM 07/15/24 DELIVERED TO BEDSIDE, CM MET W/PT AND FAMILY AT BEDSIDE, PT LIVES ALONE AND DTR RALF LIVES NEXT DOOR, PT IS INDEP AT BASELINE AND DENIES USE OF DME/SERVICES. PT'S GOAL IS DC HOME ONCE MEDICALLY CLEARED, O.T. RECOMMENDING HOME SERVICES AND P.T. NOT INDICATED AT THIS TIME. PT AND FAMILY AGREEABLE TO REFERRAL TO [facility]. PT VERIFIES PCP IS EDDIE GORMAN AND HCP IS LUPILLO VARGAS, COPY ON FILE IN EXPANSE.
[2024-07-15 15:19] VITALS: BP 162/91; PULSE 63; RESP 17; TEMP 36.7; O2SAT 99
--- NOTE | 2024-07-15 15:52 | PM.NEUROCN ---
History of Present Illness Data of Consult Service Date: 07/15/24 Primary Care Provider: Vane Ladd, [facility]- HPI Reason for consult: Stroke This is an 83-year-old female with a h/o CHF (EF 40% 04/16/2024), HTN, PVD, LVH, who presented to the ED due to confusion, dysarthria and aphasia noticed on 07/14/24 around 19:00. The patient's daughter talked to her the previous day around 18:30 and called her today and noticed that she was not making sense. The patient is oriented to place but inappropriately answering questions. She denies any headache, chest pain, shortness of breath, change in vision, dizziness or urinary symptoms including frequency, urgency or dysuria. She has no previous history of a TIA or CVA. She has been able to ambulate normally and does not having any upper or lower extremity weakness. Her last known well time is unclear so TNK was not administered and neurointerventionalist declined to attempt thrombectomy for complete occlusion of left posterior superior M2 embolus. Her speech has improved but still with word finding problems. [facility] Past Medical History Medical History ROLF (generalized anxiety disorder) HTN (hypertension) LVH (left ventricular hypertrophy) CHF (congestive heart failure) Skin cancer Anxiety Family History Family History (Updated 04/04/24 @ 13:35 by Savanna Arias MA) Sister Mental health disorder Cancer Parkinson disease Hypertension Paternal Grandmother Mental health disorder Brother Mental health disorder Cancer Parkinson disease Hypertension Cardiovascular disease Sister Cancer Father Hypertension Cardiovascular disease Mother Cardiovascular disease Son Diabetes Maternal Grandmother Diabetes Surgical History Surgical History Mammogram declined (~2024) Colon cancer screening declined (~2024) No pertinent past surgical history Social History Social History Household Members: None Both parents involved: No Caregiver staying overnight: No Housing: House Are you a primary day care supervisor to a significant other at home: No Do you presently have visiting nurse or other home services: No (daughter checks in) 75 years or older and lives alone: No Alcohol intake: current Alcohol intake frequency: a few times a week Patient Tobacco Use Status: Never used Tobacco e-Cigarette/Vaping Use: Never Used Second Hand Smoke Exposure: No Advance Directives Date on File: 04/09/24 service: No Current occupational status: retired Cognitive needs: No Hearing needs: No Vision needs: No Meds Allergies Allergy/AdvReac Type Severity Reaction Status Date / Time clonidine AdvReac HTN Verified 07/14/24 19:45 Active Medications: Current Medications Acetaminophen (Acetaminophen 325 Mg Tablet) 975 mg PO Q6H PRN PRN Reason: Pain, Mild 1-3,fever,headache Aspirin (Aspirin Enteric Coated 81 Mg Tablet.Dr) 81 mg PO DAILY [facility] Last Admin: 07/15/24 07:58 Dose: 81 mg Atorvastatin Calcium (Atorvastatin Calcium 40 Mg Tablet) 40 mg PO BEDTIME [facility] Last Admin: 07/15/24 00:03 Dose: 40 mg Buspirone HCl (Buspirone Hcl 10 Mg Tablet) 10 mg PO BID [facility] Calcium Carbonate (Calcium Carbonate 750 Mg Tab.Chew) 750 mg PO Q4H PRN PRN Reason: Heartburn Carvedilol (Carvedilol 3.125 Mg Tablet) 3.125 mg PO DAILY [facility]; Protocol Enoxaparin Sodium (Enoxaparin Sodium 40 Mg/0.4 Ml Syringe) 40 mg SUBCUT Q24H [facility] Last Admin: 07/15/24 00:04 Dose: 40 mg Lisinopril (Lisinopril 10 Mg Tablet) 10 mg PO DAILY [facility]; Protocol Magnesium Hydroxide (Milk Of Magnesia 30 Ml Oral.Susp) 30 ml PO DAILY PRN PRN Reason: Constipation Melatonin (Melatonin 3 Mg Tablet) 6 mg PO BEDTIME PRN PRN Reason: Insomnia Morphine Sulfate (Morphine Sulfate 4 Mg/Ml Cartridge) 2 mg IVPUSH Q4H PRN; Protocol PRN Reason: Pain, Severe (Pain Scale 7-10) Ondansetron HCl (Ondansetron Hcl 4 Mg/2 Ml Vial) 4 mg IVPUSH Q8H PRN PRN Reason: Nausea and Vomiting Oxycodone HCl (Oxycodone Hcl Immed Release 5 Mg Tablet) 5 mg PO Q6H PRN PRN Reason: Pain, Moderate(Pain Scale 4-6) Sertraline HCl (Sertraline Hcl 25 Mg Tablet) 75 mg PO DAILY [facility] Last Admin: 07/15/24 12:27 Dose: 75 mg Sodium Chloride (0.9 % Sodium Chloride Flush 3 Ml Syringe) 3 ml IVFLUSH QSHIFT [facility] Last Admin: 07/15/24 08:03 Dose: 3 ml Home Medications ?Medication ?Instructions ?Recorded ?Confirmed ?Last Taken ?Type acetaminophen 325 mg tablet 650 mg PO Q4H PRN Pain 07/15/24 07/15/24 Unknown History (Tylenol) buspirone 10 mg tablet 10 mg PO BID 07/15/24 07/15/24 07/14/24 History ibuprofen 200 mg tablet 400 mg PO Q6H PRN Pain 07/15/24 07/15/24 Unknown History Physical Exam Vital Signs: Vital Signs: Last Vital Signs Temp 98.1 F 07/15/24 15:19 Pulse 63 07/15/24 15:19 Resp 17 07/15/24 15:19 BP 162/91 H 07/15/24 15:19 Pulse Ox 99 07/15/24 15:19 O2 Del Method Room Air 07/15/24 15:19 BMI result Body Mass Index 26.6 Neuro: Other: Mild to moderate word finding problems. unable to do simple calculations. No field cuts. No problem with comprehension.. No motor or sensory deficits. Results Labs 07/15/24 06:02 07/15/24 06:02 Labs: Short CBC 07/14/24 07/15/24 Range/Units 20:34 06:02 WBC 5.4 4.7 L (4.8-10.8) X10*3/uL Hgb 13.9 14.2 (12.0-16.0) g/dl Hct 39.1 41.6 (37.0-47.0) % Plt Count 208 199 (160-400) X10*3/uL BMP 07/14/24 07/15/24 20:34 06:02 Sodium 129 L 134 L Potassium 4.0 3.9 Chloride 97 100 Carbon Dioxide 25 27 BUN 12 9 Creatinine 0.76 0.71 Calcium 8.5 D 8.6 Urine 07/14/24 Range/Units 21:39 Urine Color Yellow Urine Appearance Clear Urine pH 7.0 (5.0-9.0) Ur Specific [place] 1.020 (1.005-1.025) Urine Protein Negative (Neg-Trace) mg/dL Urine Glucose (UA) Negative (Negative) mg/dL Microbiology Microbiology Results: Microbiology 07/14/24 21:50 Urine clean catch - Clean Catch Midstream Urine Culture - Preliminary No growth to date. Assessment and Plan (1) Acute CVA (cerebrovascular accident): Status: Acute left MCA M1-2 occlusion from thrombus probably embolic from cardiac source. Recom. Echocardiogram with bubble study. 30 day cardiac event monitor. Short term anticoagulation with Eliquis for 3- 6 months then ASA 81mg unless director of cardiac cath lab shows paroxysmal A fib. Procedures Date of Service Date of Service: 07/15/24
[2024-07-15] MEDS: Apixaban 5 MG TABLET PO (18:57)
[2024-07-15 19:44] VITALS: BP 161/80; PULSE 65; RESP 16; TEMP 37.1; O2SAT 95
[2024-07-15] MEDS: Melatonin 3 MG TABLET 6 MG PO (20:25)
[2024-07-15] MEDS: busPIRone HCl 10 MG TABLET PO (20:25)
[2024-07-15 23:44] VITALS: BP 153/77; PULSE 58; RESP 16; TEMP 37; O2SAT 97
[2024-07-16] VITALS (7 sets, daily range): BP systolic 142–164; BP diastolic 69–88; PULSE 53–65; RESP 16–18; TEMP 35.9–36.9; O2SAT 95–100
[2024-07-16 07:00] LABS: Anion Gap 11 (12-20); Blood Urea Nitrogen 12 mg/dL (9-16); Calcium 8.5 mg/dL (8.4-10.2); Carbon Dioxide 26 mmol/L (22-29); Chloride 100 mmol/L (96-108); Creatinine Clr Calc Pharmacy 59.5; Estimated Glomerular Filt Rate > 60; Glucose Random 120 mg/dL (60-115); Potassium 3.9 mmol/L (3.3-5.1); Sodium 133 mmol/L (135-145)
[2024-07-16 07:32] LABS: Hematocrit 39.7 % (37.0-47.0); Hemoglobin 13.6 g/dl (12.0-16.0); Mean Corpuscular HGB Conc 34.3 g/dl (31.0-35.0); Mean Corpuscular Volume 93.4 fL (80.0-98.0); Mean Platelet Volume 10.4 fL (9.4-12.3); Platelet Count 195 X10*3/uL (160-400); Red Blood Count 4.25 X10*6/uL (4.20-5.50); Red Cell Distribution Width 13.1 % (11.0-16.0); White Blood Count 4.7 X10*3/uL (4.8-10.8)
[2024-07-16] MEDS: Apixaban 5 MG TABLET PO ×2 (09:27→20:20)
[2024-07-16] MEDS: busPIRone HCl 10 MG TABLET PO ×2 (09:27→20:20)
[2024-07-16] MEDS: lisinopriL 10 MG TABLET PO (09:28)
[2024-07-16] MEDS: carvediloL 3.125 MG TABLET PO (09:28)
[2024-07-16] MEDS: Aspirin Enteric Coated 81 MG TABLET.DR PO (09:29)
[2024-07-16] MEDS: Sertraline HCL 25 MG TABLET 75 MG PO (09:38)
[2024-07-16] MEDS: Acetaminophen 325 MG TABLET 975 MG PO ×2 (09:41→20:20)
--- NOTE | 2024-07-16 10:24 | HO.PM.IMPN ---
Subjective Subjective Date of Service: 07/16/24 Interval History: f/u on stroke has signficant word finding difficulty seems more pronounced today, no other focal neuro deficit no arrythmia on monitor Physical Exam Vital Signs: Vital Signs: Last Vital Signs Temp 97.9 F 07/16/24 07:16 Pulse 58 07/16/24 07:16 Resp 18 07/16/24 07:16 BP 164/84 H 07/16/24 09:28 Pulse Ox 95 07/16/24 07:16 O2 Del Method Room Air 07/16/24 07:16 BMI result Body Mass Index 26.6 Const: Other: General: word finding difficulty making assessment difficult, no acute distress Resp: CTA bilateral CVS: S1,S2,RRR GI: +BS, NT, no distention Skin: No rash Psych: appropriate affect Neuro: Other: Mild to moderate word finding problems. unable to do simple calculations. No field cuts. No problem with comprehension.. No motor or sensory deficits. Objective Data Active Medications Acetaminophen (Acetaminophen 325 Mg Tablet) 975 mg PO Q6H PRN PRN Reason: Pain, Mild 1-3,fever,headache Last Admin: 07/16/24 09:41 Dose: 975 mg Documented By: JOHN Apixaban (Apixaban 5 Mg Tablet) 5 mg PO Q12H [facility] Last Admin: 07/16/24 09:27 Dose: 5 mg Documented By: JOHN Aspirin (Aspirin Enteric Coated 81 Mg Tablet.) 81 mg PO DAILY [facility] Last Admin: 07/16/24 09:29 Dose: 81 mg Documented By: JOHN Atorvastatin Calcium (Atorvastatin Calcium 40 Mg Tablet) 40 mg PO BEDTIME [facility] Last Admin: 07/15/24 20:25 Dose: 40 mg Documented By: JOHN Buspirone HCl (Buspirone Hcl 10 Mg Tablet) 10 mg PO BID [facility] Last Admin: 07/16/24 09:27 Dose: 10 mg Documented By: JOHN Calcium Carbonate (Calcium Carbonate 750 Mg Tab.Chew) 750 mg PO Q4H PRN PRN Reason: Heartburn Carvedilol (Carvedilol 3.125 Mg Tablet) 3.125 mg PO DAILY [facility]; Protocol Last Admin: 07/16/24 09:28 Dose: 3.125 mg Documented By: JOHN Lisinopril (Lisinopril 10 Mg Tablet) 10 mg PO DAILY [facility]; Protocol Last Admin: 07/16/24 09:28 Dose: 10 mg Documented By: JOHN Lorazepam (Lorazepam 0.5 Mg Tablet) 0.25 mg PO Q6H PRN PRN Reason: Anxiety Magnesium Hydroxide (Milk Of Magnesia 30 Ml Oral.Susp) 30 ml PO DAILY PRN PRN Reason: Constipation Melatonin (Melatonin 3 Mg Tablet) 6 mg PO BEDTIME PRN PRN Reason: Insomnia Last Admin: 07/15/24 20:25 Dose: 6 mg Documented By: JOHN Morphine Sulfate (Morphine Sulfate 4 Mg/Ml Cartridge) 2 mg IVPUSH Q4H PRN; Protocol PRN Reason: Pain, Severe (Pain Scale 7-10) Ondansetron HCl (Ondansetron Hcl 4 Mg/2 Ml Vial) 4 mg IVPUSH Q8H PRN PRN Reason: Nausea and Vomiting Oxycodone HCl (Oxycodone Hcl Immed Release 5 Mg Tablet) 5 mg PO Q6H PRN PRN Reason: Pain, Moderate(Pain Scale 4-6) Sertraline HCl (Sertraline Hcl 25 Mg Tablet) 75 mg PO DAILY [facility] Last Admin: 07/16/24 09:38 Dose: 75 mg Documented By: JOHN Sodium Chloride (0.9 % Sodium Chloride Flush 3 Ml Syringe) 3 ml IVFLUSH QSHIFT [facility] Last Admin: 07/15/24 20:29 Dose: 3 ml Documented By: JOHN Labs 07/16/24 06:08 07/16/24 06:08 Labs: Laboratory Results - last 24 hr 07/16/24 06:08 MCV 93.4 MCH 32.0 MCHC 34.3 RDW 13.1 Plt Count 195 MPV 10.4 Absolute Nucleated RBC 0.000 Nucleated RBC % (auto) 0.0 Anion Gap 11 L Estim Creat Clear Calc 59.5 Estimated GFR > 60 Random Glucose 120 H Calcium 8.5 Microbiology Microbiology Results: Microbiology 07/14/24 21:50 Urine Culture - Final Urine clean catch - Clean Catch Midstream Assessment and Plan (1) Acute CVA (cerebrovascular accident): Status: Acute Plan Patient is an 83-year-old female with a past medical history significant for HFrEF (EF 40% 04/16/2024), HTN, PVD, LVH, who presented to the ED due to confusion, dysarthria and aphasia noticed today around 19:00. Acute CVA -- left post MCA M2 segment. head CT negative. CTA head and neck with complete occlusion left post MCA M2 segment. last known well time greater than 24 hours, not TNK candidate. MRI: Acute likely embolic stroke/ischemia left MCA territory with a focal hemorrhagic component in the left temporoparietal subcortical white matter. Probable embolus, M1, M2 and M3 segments, left MCA. Slow flow versus thrombus, left sigmoid and transverse sinuses and left internal jugular bulb. Medical management with ASA and neurology recommend eliquis for 3 to 6 months, will need event monitoring and will discuss with cardiology PT, OT, cleared for home, awaiting TAX SERVICES PROFESSIONAL eval cardiac monitoring thus far no afib echo no intracardiac clot or shunt, and normal EF Anxiety. patient with uncontrolled anxiety, may need med adjustment psych consult continue Sertraline Ativan PRN Chronic HFrEF, no acute exacerbation continue home meds when appropriate HTN restarted BP meds lisinopril and coreg DNI VTE prophylaxis: Lovenox Patient with acute CVA requiring admission for at least 2 midnights stay for further evaluation and monitoring. Quality Stroke Does the patient have a stroke diagnosis?: Yes Reason for No Anti-thrombotic by Day Two: Contraindicated VTE Prior VTE?: No VTE Risk Level:: Medical - moderate - high VTE Device Contraindication: Treatment Not Indicated VTE Drug Contraindication: N/A - Med Ordered
[2024-07-16] MEDS: 0.9 % Sodium Chloride Flush 3 ML SYRINGE IVFLUSH ×2 (14:40→20:21)
--- NOTE | 2024-07-16 17:18 | MHC.SP.ADU ---
Referring provider: [facility] Reason for Referral: Dysarthria Type of Treatment: [id number] Evaluation of Speech Sound Production Date of Plan of Treatment: 07/16/24 Onset of Symptoms/Illness: 07/16/24 Date Treatment Started: 07/16/24 Medical Diagnosis: Dysarthria/Receptive and Expressive Aphasia Primary Speech Language Diagnosis: R47.1 Dysarthria Secondary Speech Language Diagnosis: F80.2 Mixed receptive-expressive language disorder History MD note: '83-year-old female with a past medical history significant for HFrEF (EF 40% 04/16/2024), HTN, PVD, LVH, who presented to the ED due to confusion, dysarthria and aphasia noticed today around 19:00. Acute CVA -- left post MCA M2 segment. head CT negative. CTA head and neck with complete occlusion left post MCA M2 segment. last known well time greater than 24 hours, not TNK candidate. MRI: Acute likely embolic stroke/ischemia left MCA territory with a focal hemorrhagic component in the left temporoparietal subcortical white matter. Probable embolus, M1, M2 and M3 segments, left MCA. Slow flow versus thrombus, left sigmoid and transverse sinuses and left internal jugular bulb.' Medical History: Other: Medication List: Recent Hospitalizations: No Respiratory Needs: Room Air Patient Orientation: Person, Place Only Social History: Employment Status: Highest level of education obtained: Current Living Situation: Assistive Devices in use: Comment: Past Speech Language Therapy: Other Therapies Seen in Current Calendar Year: Other: Swallowing History: Dysphagia Specific: Within Functional Limits Comments: Pre-eval Risk for Aspiration: Pre-evaluation Dietary Consistencies: Regular Pre-eval Liquid Intake: Thin Pre-eval Medication Intake: Reported Speech, Language, Cognition difficulties: Understanding Speaking Comments: Pt presents with moderate dysarthria characterized by imprecision of articulated movements across syllables. In diadokokinetic rate production pt unable to produce sequences for bilabial syllables and front to back sequences of bilabial, tip dental, velar sounds. Pt produced tip dental syllables in sequence with 70% efficiency and velar syllables in sequence with 60% efficiency. Pt motor speech production at the word level 50% accurate, with deterioration at the phrase and sentence level to 30% intelligibility. Question influence of word finding (anomia) on motor speech production. Pt receptive language moderately impaired, possibly d/t pre-existing hearing loss. Pt needed repetitions, clarification and extra time to process verbal information during structured language tasks. Education and review of recommendations provided to pt and family, who were in agreement with [facility] intervention upon d/c home with services. Quality of Life: Patient Stated Goal of Speech-Language Therapy: Assessment Speech Production: Aphasic: Nonfluent Dysarthric Nonfluent Pressured Rapid Clinical Impression: Impaired Observations: Informal Voice Assessment: Voice Loudness: Normal Voice Nasal Resonance: Normal Voice Oral Resonance: Normal Voice Phonatory-based Quality: Normal Voice Pitch: Normal Voice Other Observations: Clinical Impression: Intact Clinicial Observations: Tests of Speech & Lang Adults: Clinical Impression: Observations: Tests of Cognition: Clinical Impression: Observations: Augmentative and Alternative Communication: Observations: Impressions and Recommendations Summary: Impact on Daily Function/Activity Limitations: Daily Activities: Interpersonal Interactions: Education: Employment: Community: Prognosis for Improvement: Comment: Recommendation for Speech Therapy: Speech Therapy through [facility] Speech Therapy through Rehab Facility Recommended Referrals to be Discussed with Primary Care Provider: Patient Education: Completed: Yes Patient/Caregiver Education: Described Results of Evaluation Patient expressed understanding of evaluation Patient agrees with goals and treatment plan Comments/Barriers to Learning: Skate Shop Attendant Clinican/Clinical Fellow: No Supervisory Statement: N/A Speech Language Pathologist: Rosa Maria Knott M.S., [facility]
--- NOTE | 2024-07-16 17:18 | MHC.SL.SWA ---
Speech Pathologist Impression: Within Functional Limits Risk of Aspiration Due to: Dysphasia Diet Status: Liquid Consistency and Strategies for Safe Swallow: Liquid Intake Recommendation: Thin Liquid Intake Strategies: Solid Food Consistency: Dietary Recommendations: Regular Additional Modifications to Solid Foods: Oral Medication Intake: Whole with Liquid Please contact the pharmacy regarding appropriate crushable or liquid drug formulations that are available whenever modified delivery is recommended. Compensatory Strategies and Precautions to be Taken for Safe Swallow: Supervision While Eating and Drinking for Safe Swallow: Intermittent Supervision Foods to Avoid: Swallowing Recommended Treatments: Recommendation for Speech: Speech Therapy through [facility] Speech Therapy through Rehab Facility Comment: Frequency/Duration: Date Range for Service Req: Timeline to reassess: Airplane Cabin Attendant Clinican/Clinical Fellow: No Supervisory Statement: I have reviewed and agree with the student/clinical fellow's documentation: N/A Speech Language Pathologist: Rosa Maria Knott M.S., [facility]
[2024-07-16] MEDS: Melatonin 3 MG TABLET 6 MG PO (20:20)
[2024-07-16] MEDS: Atorvastatin Calcium 40 MG TABLET PO (20:20)
[2024-07-17 03:37] VITALS: BP 160/87; PULSE 56; RESP 18; TEMP 36; O2SAT 99
[2024-07-17 06:26] LABS: Hematocrit 40.1 % (37.0-47.0); Hemoglobin 13.8 g/dl (12.0-16.0); Mean Corpuscular HGB Conc 34.4 g/dl (31.0-35.0); Mean Corpuscular Hemoglobin 32.1 pg (27.0-33.0); Mean Corpuscular Volume 93.3 fL (80.0-98.0); Mean Platelet Volume 10.1 fL (9.4-12.3); Platelet Count 192 X10*3/uL (160-400); White Blood Count 4.3 X10*3/uL (4.8-10.8)
[2024-07-17 06:43] LABS: Anion Gap 11 (12-20); Blood Urea Nitrogen 10 mg/dL (9-16); Calcium 8.9 mg/dL (8.4-10.2); Carbon Dioxide 27 mmol/L (22-29); Chloride 102 mmol/L (96-108); Creatinine Clr Calc Pharmacy 64.1; Estimated Glomerular Filt Rate > 60; Glucose Random 118 mg/dL (60-115); Potassium 4.2 mmol/L (3.3-5.1); Sodium 136 mmol/L (135-145)
--- NOTE | 2024-07-17 07:05 | P.DS_ITS ---
DS: Providers Provider Date of Service: 07/17/24 Date of admission: 07/14/24 22:07 Date of discharge: 07/17/24 Primary care physician: EDDIE Dos Santos- Consults: 07/14/24 22:57 Consult to Neurology Routine Consulting Provider: [facility] Reason for consultation: CVA 07/14/24 23:00 Consult to Psychiatry Routine Consulting Provider: [facility] Reason for consultation: uncontrolled anxiety Has provider been notified: No DS: Diagnosis Discharge Diagnosis (1) Acute CVA (cerebrovascular accident): Status: Acute DS: Summary Hospital Course Hospital Course: Chief Complaint: Confusion, dysarthria, aphasia Patient is an 83-year-old female with a past medical history significant for HFrEF (EF 40% 04/16/2024), HTN, PVD, LVH, who presented to the ED due to confusion, dysarthria and aphasia noticed today around 19:00. The patient's daughter talked to her yesterday around 18:30 and called her today and noticed that she was not making sense. The patient is oriented to place but last inappropriately when answering questions. She denies any headache, chest pain, shortness of breath, change in vision, dizziness or urinary symptoms including frequency, urgency or dysuria. She has no previous history of a TIA or CVA. She has been able to ambulate normally and does not having any upper or lower extremity weakness. Her last known well time is unclear Hospital course: Patient presented with word finding difficulty and found to have acute CVA with CTA of head and neck showing? complete occlusion left post MCA M2 segment.? last known well time greater than 24 hours,? and so was not a TNK candidate.? MRI showed Acute likely embolic stroke/ischemia left MCA territory with a focal? hemorrhagic component in the left temporoparietal subcortical white? matter. Probable embolus, M1, M2 and M3? segments, left MCA.Slow flow versus thrombus, left sigmoid and transverse sinuses and left? internal jugular bulb. She had repeat CT of head the next day due to more pronounced word finding difficulty and mouth droop but no change. She is being medically managed with ASA and Lipitor. The neurologist recommends eliquis for 3 to 6 months, an event monitor which is being arranged on an outpatient basis with Dr. Sanchez. She has been seen by PT and OT, and Speech and will be provider home services. She has no motor deficit, she will need ongoing speech therapy on an outpatient basis. In addition to aspirin, eliquis, and high intensity statin, she needs optimal blood pressure control. Her home dose of Lisinopril 10 is being doubled, her present BP is 160/ 87.? She had an echocardiogram showing no shunt, non intracardiac clot and normal EF.? Plan of care discussed with family, they are aware she may continue to have evolving symptoms but symptoms are sifnificant or new to return to the hospital Anxiety. patient with uncontrolled anxiety, may need med adjustment psych consult continue Sertraline Ativan PRN Chronic HFrEF, no acute exacerbation continue home meds when appropriate HTN restarted BP meds lisinopril and coreg Time Attestation Discharge Coordination Time (in mins): 40 Quality: Safe Use of Opioids Does Pt have an Active Cancer Diagnosis on the Problem List?: No Quality: Stroke Does the patient have a stroke diagnosis?: Yes Reason for No Anti-thrombotic at DC: N/A - Med Ordered Reason for No Anticoagulant at DC: N/A - Med Ordered Reason Not Initiating IV-Tpa: Not indicated Reason for No Anti-thrombotic by Day Two: N/A - Med Ordered Reason for No Statin at DC: N/A - Med Ordered Physical Exam Vital Signs: Vital Signs: Last Vital Signs Temp 96.8 F 07/17/24 03:37 Pulse 56 07/17/24 03:37 Resp 18 07/17/24 03:37 BP 160/87 H 07/17/24 03:37 Pulse Ox 99 07/17/24 03:37 O2 Del Method Room Air 07/17/24 03:37 BMI result Body Mass Index 26.6 Const: Other: General: word finding difficulty making assessment difficult, no acute distress Resp: CTA bilateral CVS: S1,S2,RRR GI: +BS, NT, no distention Skin: No rash Psych: appropriate affect Neuro: Other: Mild to moderate word finding problems. unable to do simple calculations. No field cuts. No problem with comprehension.. No motor or sensory deficits. DS: Data Data Completed and Pending Labs on day of discharge: Laboratory Results - last 24 hr 07/16/24 07/17/24 06:08 06:09 WBC 4.7 L 4.3 L RBC 4.25 4.30 Hgb 13.6 13.8 Hct 39.7 40.1 MCV 93.4 93.3 MCH 32.0 32.1 MCHC 34.3 34.4 RDW 13.1 13.0 Plt Count 195 192 MPV 10.4 10.1 Absolute Nucleated RBC 0.000 0.000 Nucleated RBC % (auto) 0.0 0.0 Sodium 136 Potassium 4.2 Chloride 102 Carbon Dioxide 27 Anion Gap 11 L BUN 10 Creatinine 0.65 Estim Creat Clear Calc 64.1 Estimated GFR > 60 Random Glucose 118 H Calcium 8.9 Discharge Plan Discharge Anticipated Discharge Date/Time: 07/17/24 07:24 Patient Disposition: Home Health Service Discharge Diagnosis: Acute embolic stroke Referrals: [facility] [Outside] - 1 Day Vane Ladd FNP-BC [Primary Care Provider] - 1 Week Discharge Medications: New atorvastatin 40 mg Tablet 40 mg PO BEDTIME Qty: 90 0RF lisinopril 20 mg Tablet 20 mg PO DAILY Qty: 180 0RF Protocol: Hold for SBP< HOLD for SBP < : 90 aspirin 81 mg Tablet,Delayed Release (Dr/Ec) 81 mg PO DAILY Qty: 90 0RF Continued buspirone 10 mg tablet 10 mg PO BID acetaminophen [Tylenol] 325 mg Tablet 650 mg PO Q4H PRN (Reason: Pain) (DME) Blood Pressure Cuff Misc See Rx Instructions .Route Qty: 1 1RF Rx Instructions: As directed sertraline 50 mg tablet 75 mg PO DAILY Qty: 45 1RF carvedilol [Coreg] 3.125 mg tablet 3.125 mg PO DAILY Qty: 90 0RF Rx Instructions: must administer with a meal/food Discontinued lisinopril 10 mg tablet 10 mg PO DAILY Qty: 90 0RF No Action Eliquis 5 mg tablet 5 mg PO BID Discharge Orders: Discharge Order (Routine); Ordered 07/17/24 Ordered By: Kemal Henderson Diet: Advance to usual diet Activity on Discharge: As tolerated Stand Alone Forms: Patient Portal Discharge page Print Language: Nicaraguan Care Plan Goals: recovery from acute stroke with word finding difficulty Health Concerns: acute stroke word finding difficulty high blood pressure Plan of Treatment: take Aspirin, eliquis in addition for your other medications you will follow up with the cardiology office to be set up for event monitor follow up with your doctor in a week if you experience strok symptoms such sudden on set of weakness on one side, difficulty talking, visual problems and other, call [phone] [id number] up with your primary care doctor within a week Assessment: See above Discharge Date/Time: 07/17/24 16:43
[2024-07-17 07:47] VITALS: BP 151/87; PULSE 60; RESP 17; TEMP 36.1; O2SAT 100
[2024-07-17] MEDS: carvediloL 3.125 MG TABLET PO (08:38)
[2024-07-17] MEDS: Aspirin Enteric Coated 81 MG TABLET.DR PO (08:38)
[2024-07-17] MEDS: Sertraline HCL 25 MG TABLET 75 MG PO (08:38)
[2024-07-17] MEDS: Apixaban 5 MG TABLET PO (08:38)
[2024-07-17] MEDS: busPIRone HCl 10 MG TABLET PO (08:38)
[2024-07-17] MEDS: lisinopriL 20 MG TABLET PO (08:38)
[2024-07-17] MEDS: Acetaminophen 325 MG TABLET 975 MG PO (08:39)
[2024-07-17] MEDS: 0.9 % Sodium Chloride Flush 3 ML SYRINGE IVFLUSH (08:41)
--- NOTE | 2024-07-17 11:22 | W.MHC.F2F ---
Service Date Service Date: 07/17/24 Encounter Date of encounter: 07/17/24 Reasons for Services Signs and symptoms assessed: Stroke with word finding difficulties Reason for senior care: medication management and teach disease management Reason for speech therapy: speech impairment Homebound: Leaving the home is medically contraindicated at this time without the asist of a device and/or another person due th the listed conditions above and below. Reason homebound: unable to drive and other (recovering from stroke) Homebound supporting statement: Patient just had acute stroke and has major difficulty communicating, impairment her functioning and therefore needs the asostance of another person Certification: Based on the above findings, I certify that this patient is confined to the home and needs intermittent senior care care, physical therapy and/or speech therapy, or continues to need occupational therapy. The patient is under my care, and I have initiated the establishment of the plan of care. The patient will be followed by a physician who will periodically review the plan of care. Time Spent With Patient Time: Total time managing care of this patient today ____ minutes.
[2024-07-17 11:46] VITALS: BP 144/88; PULSE 56; RESP 17; TEMP 36.2; O2SAT 100
--- NOTE | 2024-07-17 15:09 | MHC.STROKE ---
Met with daughters to discuss stroke and stroke care at home. Stroke Education pamphlet provided. Communication board also provided to patient/family Discussed discharge plan. Pt sleeping during this creative services writer's visit. Family reports that she hasn't been sleeping well since her arrival to the hospital.
[2024-07-17 15:39] VITALS: BP 131/69; PULSE 65; RESP 17; TEMP 36.1; O2SAT 95
== END 2024-07-17 16:43 | disposition home health service (06) | DRG 65 ==
LOC: HO.ED 22:04 → HO.EDOVER 22:11 → HO.IMC 07-15 02:31
PROVIDERS: Physician Assistant; Physician Assistant Medical; Admitting Provider Student in an Organized Health Care Education/Training Program; Emergency Provider Emergency Medicine; PCP Nurse Practitioner Family; Visit Provider Internal Medicine
DX: I63.412 Cerebral infarction due to embolism of left middle cerebral artery (principal); I50.22 Chronic systolic (congestive) heart failure; F41.9 Anxiety disorder, unspecified; R29.810 Facial weakness; R47.1 Dysarthria and anarthria; R47.01 Aphasia; R29.704 NIHSS score 4; I11.0 Hypertensive heart disease with heart failure; T44.7X6A Underdosing of beta-adrenoreceptor antagonists, initial encounter; Z79.899 Other long term (current) drug therapy
CPT/HCPCS: 36415; 70450; 70496; 70498; 70551; 80048; 80061; 80307; 81001; 82947; 84484; 85025; 85027; 85610; 85730; 87086; 92522; 92610; 93005; 93306; 97162; 97165; 97535; 99285; J1650; J3360; Q9957; Q9967

== ENCOUNTER → 2024-07-14 19:45 | Outpatient (BNV) | payer MEDICARE, OTHER, SELFPAY | PROVIDERS: Emergency Provider Emergency Medicine; PCP Nurse Practitioner Family; Visit Provider Student in an Organized Health Care Education/Training Program | DX: I66.22 Occlusion and stenosis of left posterior cerebral artery (principal); R47.81 Slurred speech | CPT/HCPCS: 70450; 70496; 70498 ==

== ENCOUNTER → 2024-07-14 19:45 | Outpatient (BNV) | payer MEDICARE, OTHER, SELFPAY | PROVIDERS: Admitting Provider Student in an Organized Health Care Education/Training Program; Emergency Provider Emergency Medicine; PCP Nurse Practitioner Family; Visit Provider Internal Medicine Cardiovascular Disease | DX: I51.7 Cardiomegaly (principal) | CPT/HCPCS: 93010 ==

== ENCOUNTER 2024-07-14 22:07 | Outpatient (BNV) | payer MEDICARE, OTHER, SELFPAY | END 2024-07-15 10:05 | PROVIDERS: Admitting Provider Student in an Organized Health Care Education/Training Program; Emergency Provider Emergency Medicine; PCP Nurse Practitioner Family; Visit Provider Radiology Diagnostic Radiology | DX: R90.82 White matter disease, unspecified (principal) | CPT/HCPCS: 70551 ==

== ENCOUNTER 2024-07-14 22:07 | Outpatient (BNV) | payer MEDICARE, OTHER, SELFPAY | END 2024-07-15 07:00 | PROVIDERS: Admitting Provider Student in an Organized Health Care Education/Training Program; Emergency Provider Emergency Medicine; PCP Nurse Practitioner Family; Visit Provider Internal Medicine Cardiovascular Disease | DX: I51.7 Cardiomegaly (principal); I51.89 Other ill-defined heart diseases; I77.810 Thoracic aortic ectasia; I87.1 Compression of vein; E86.9 Volume depletion, unspecified | CPT/HCPCS: 93306 ==

== ENCOUNTER → 2024-07-14 22:07 | Outpatient (BNV) | payer MEDICARE, OTHER, SELFPAY | PROVIDERS: Admitting Provider Student in an Organized Health Care Education/Training Program; Emergency Provider Emergency Medicine; PCP Nurse Practitioner Family; Visit Provider Psychiatry & Neurology Neurology | DX: I63.312 Cerebral infarction due to thrombosis of left middle cerebral artery (principal) | CPT/HCPCS: 99222 ==

== ENCOUNTER → 2024-07-14 22:07 | Outpatient (BNV) | payer MEDICARE, OTHER, SELFPAY | PROVIDERS: Admitting Provider Student in an Organized Health Care Education/Training Program; Emergency Provider Emergency Medicine; PCP Nurse Practitioner Family; Visit Provider Physician Assistant | DX: I63.9 Cerebral infarction, unspecified (principal) | CPT/HCPCS: 99223; 99232; 99239; G0180 ==

== ENCOUNTER 2024-07-18 16:51 | Inpatient (IN) | payer MEDICARE, OTHER, SELFPAY ==
--- NOTE | ~2024-07-18 | CT_ITS ---
CLINICAL HISTORY: right facial droop, worsening CT angiography head and neck with contrast. 3D Postprocessing. Comparison: 07/14/2024 Findings: Aortic arch and cervical great vessels are patent with no aneurysm, dissection, hemodynamically significant stenoses, or occlusion. Atherosclerosis calcification of the bilateral carotid bulbs with mild stenoses of the proximal internal carotid artery. Complete occlusion of the left posterior superior MCA dominant M2 segment. Remainder of the major intracranial arteries are patent. No abnormal intracranial enhancement. The visualized thyroid gland is unremarkable. No cervical mass or fluid collection. Lung apices clear. No acute fracture. IMPRESSION: Complete occlusion of the left posterior superior MCA dominant M2 segment is unchanged from prior CTA. The additional arterial structures of the neck and head are patent. This document has been electronically signed by: Cuate Henry MD on 07/18/2024 18:36:36
--- NOTE | ~2024-07-18 | CT_ITS ---
CLINICAL HISTORY: right facial droop worsening --- Additional Notes or Special Instructions: recent C [facility] started on Eliquis CT Brain without contrast Comparison: MR/IL/SR - MR HEAD/BRAIN WO CON - 07/15/24 10:[address]/SR - CT HEAD FOR STROKE - 07/14/24 19:54 EDT FINDINGS: Cortical sulci: There is diffuse prominence of the cortical sulci compatible with age-related atrophy. Ventricles: Normal for age Brain parenchyma: There is patchy lucency throughout the deep white matter indicating chronic microvascular leukomalacia. There is a small poorly defined hypodense area of the left posterior frontal lobe series 2, image 31. Extra axial spaces: Normal Posterior Fossa: Normal Extracranial soft tissues: Normal Additional abnormality: None IMPRESSION: Age-related atrophy with chronic microvascular leukomalacia. Small poorly defined hypodense area of the left posterior frontal lobe concerning for acute infarction. No hemorrhage, mass effect, or acute findings identified. This document has been electronically signed by: Cuate Henry MD on 07/18/2024 17:39:49
--- NOTE | ~2024-07-18 | MR_ITS ---
CLINICAL HISTORY: repeat CVA MR brain without contrast. COMPARISON: CT angiogram head and neck dated 07/18/24 at 17:17 EDT MR brain dated 07/15/24 at 10:11 EDT FINDINGS: Patchy incongruent areas of diffusion restriction along the left frontal, parietal and temporal lobes with associated increased T2/FLAIR signal. Areas of diffusion restriction have increased since prior imaging. Small amount of gradient blooming within the posterior aspect of the left temporal and parietal region. Increased susceptibility artifact within the M2 segment of the left MCA consistent with occlusion seen on recent CTA. No mass or mass effect. The ventricles are proportional with the degree of moderate cerebral volume loss without evidence of hydrocephalus. Basilar cisterns are patent. Patchy hyperintense T2/FLAIR areas within the periventricular white matter and chua radiata compatible with moderate white matter small vessel disease. Chronic lacunar infarcts present within the cerebellum on the right. 4th ventricle is normal. No brainstem abnormality is identified. Visualized intracranial flow voids are patent. Small amount of fluid present within the base of the left mastoid air cells. Paranasal sinuses are clear. IMPRESSION: 1. Increased size of ischemia within the left MCA territory with small focus of likely hemorrhagic component within the left temporoparietal region. This document has been electronically signed by: Zana Hollins MD on 07/19/2024 13:25:03
[2024-07-18 16:54] VITALS: BP 194/99; PULSE 140; RESP 18; TEMP 36.8; O2SAT 96; BMI 26.2
--- NOTE | 2024-07-18 17:00 | ECG_ITS ---
Test Reason : STROKE Blood Pressure : */* mmHG Vent. Rate : 65 BPM Atrial Rate : 65 BPM P-R Int : 216 ms QRS Dur : 110 ms QT Int : 444 ms P-R-T Axes : 99 181 82 degrees QTcB Int : 461 ms Suspect limb lead reversal, interpretation assumes no reversal Sinus rhythm with 1st degree A-V block Right superior axis deviation Abnormal ECG When compared with ECG of 14-Jul-2024 20:12, Questionable change in QRS axis ST no longer depressed in Lateral leads Referred By: Adan Locke Electronically Signed By: Abelardo Sanchez
--- NOTE | 2024-07-18 17:04 | ED_ITS ---
HPI - Neuro Symptoms/Deficit General Chief Complaint: Stroke Stated Complaint: Stroke? Time Seen by Provider: 07/18/24 17:09 Related Data Home Medications ?Medication ?Instructions ?Recorded ?Confirmed acetaminophen 325 mg tablet 650 mg PO Q4H PRN Pain 07/15/24 07/15/24 (Tylenol) buspirone 10 mg tablet 10 mg PO BID 07/15/24 07/15/24 ibuprofen 200 mg tablet 400 mg PO Q6H PRN Pain 07/15/24 07/15/24 Previous Rx's ?Medication ?Instructions ?Recorded miscellaneous medical supply #1 ea 04/11/24 (Blood Pressure Cuff) sertraline 50 mg tablet 75 mg (1.5 x 50 mg) PO DAILY #45 05/30/24 tabs carvedilol 3.125 mg tablet (Coreg) 3.125 mg PO DAILY #90 tabs 06/27/24 apixaban 5 mg tablet (Eliquis) 5 mg PO Q12H #180 tabs 07/17/24 aspirin 81 mg tablet,delayed 81 mg PO DAILY #90 tabs 07/17/24 release atorvastatin 40 mg tablet 40 mg PO BEDTIME #90 tabs 07/17/24 lisinopril 20 mg tablet 20 mg PO DAILY #180 tabs 07/17/24 Allergies Allergy/AdvReac Type Severity Reaction Status Date / Time clonidine AdvReac HTN Verified 07/18/24 16:55 [facility] Past Medical History Medical History ROLF (generalized anxiety disorder) HTN (hypertension) LVH (left ventricular hypertrophy) CHF (congestive heart failure) Skin cancer Anxiety Surgical History Mammogram declined (~2024) Colon cancer screening declined (~2024) No pertinent past surgical history Family History Family History Sister Mental health disorder Cancer Parkinson disease Hypertension Paternal Grandmother Mental health disorder Brother Mental health disorder Cancer Parkinson disease Hypertension Cardiovascular disease Sister Cancer Father Hypertension Cardiovascular disease Mother Cardiovascular disease Son Diabetes Maternal Grandmother Diabetes Social History Social History Household Members: None Housing: House Are you a primary care partner to a significant other at home: No Do you presently have visiting nurse or other home services: No (daughter checks in) Alcohol intake: current Alcohol intake frequency: a few times a week Patient Tobacco Use Status: Never used Tobacco Smoked in Last 30 Days: No e-Cigarette/Vaping Use: Never Used Second Hand Smoke Exposure: No Use of substances other than those prescribed or required for medical reasons: No Advance Directives: Yes Advance Directives on File: Yes Advance Directives Date on File: 04/09/24 service: No Current occupational status: retired Cognitive needs: No Hearing needs: No Vision needs: No Physical Exam 2 Vital Signs: Vital Signs: Last Vital Signs Temp 98.2 F 07/18/24 16:54 Pulse 64 07/18/24 20:00 Resp 14 07/18/24 20:00 BP 153/64 H 07/18/24 20:00 Pulse Ox 98 07/18/24 20:00 O2 Del Method Room Air 07/18/24 20:00 BMI result Body Mass Index 26.2 Course Course Course Narrative: RME, this is a rapid medical exam performed by Juan R Locke please refer to primary provider for complete H&P- 83-year-old female presents for evaluation of worsening right facial droop and garbled speech. She was seen here Sunday, 4 days ago and diagnosed with a CVA. Per her daughter, the patient's symptoms have been worsening since 4:00 p.m. yesterday, about 25 hours ago. She has had worsening right-sided facial droop and has been unable to get any clear words spoken. I ordered repeat CT scan without contrast and angiography due to worsening stroke symptoms and the patient recently started on Eliquis Medications Administered Discontinued Medications Generic Name Dose Route Start Last Admin Trade Name Freq PRN Reason Stop Dose Admin Iohexol 70 ml 07/18/24 17:29 07/18/24 17:29 Iohexol 350 Mg/Ml 100 Ml Infus..Btl IV 07/18/24 17:30 70 ml ONCE ONE Administration Medical Decision Making Lab Data 07/18/24 17:30 07/18/24 17:30 Labs: Lab Results 07/18/24 07/18/24 07/18/24 Range/Units 17:03 17:30 18:16 WBC 5.2 (4.8-10.8) X10*3/uL RBC 4.22 (4.20-5.50) X10*6/uL Hgb 13.7 (12.0-16.0) g/dl Hct 39.6 (37.0-47.0) % MCV 93.8 (80.0-98.0) fL MCH 32.5 (27.0-33.0) pg MCHC 34.6 (31.0-35.0) g/dl RDW 13.2 (11.0-16.0) % Plt Count 208 (160-400) X10*3/uL MPV 10.1 (9.4-12.3) fL Immature Gran % (Auto) 0.4 (0.0-0.4) % Neut % (Auto) 66.2 (45-73) % Lymph % (Auto) 15.8 L (20-40) % [place] % (Auto) 14.1 H (2-11) % Eos % (Auto) 2.9 (0-4) % Baso % (Auto) 0.6 (0-2) % Lymph # (Auto) 0.8 L (1.2-4.9) X10*3/uL [place] # (Auto) 0.7 (0.1-1.2) X10*3/uL Eos # (Auto) 0.2 (0.0-0.4) X10*3/uL Baso # (Auto) 0.0 (0.0-0.2) X10*3/uL Abs Immat Gran (auto) 0.02 (0.00-0.03) X10*3/uL Absolute Neuts (auto) 3.4 (2.0-8.3) x10*3/uL Absolute Nucleated RBC 0.000 (0.0-0.012) X10*3/uL Nucleated RBC % (auto) 0.0 (0.0-0.2) /100WBC PT 12.5 H (10.9-12.4) SEC Whole Blood PT 13.0 (11.1-13.5) sec INR 1.1 (0.9-1.1) Whole Blood INR 1.1 (0.9-1.1) APTT 31.0 (26.0-36.8) SEC Sodium 136 (135-145) mmol/L Potassium 3.8 (3.3-5.1) mmol/L Chloride 101 (96-108) mmol/L Carbon Dioxide 26 (22-29) mmol/L Anion Gap 13 (12-20) BUN 11 (9-16) mg/dL Creatinine 0.64 (0.5-1.4) mg/dL Estim Creat Clear Calc 64.8 Estimated GFR > 60 POC Glucose 91 (60-115) mg/dL Random Glucose 99 (60-115) mg/dL Calcium 8.8 (8.4-10.2) mg/dL Troponin I High Sens 9.2 D (<3.5-17.0) ng/L Triglycerides 78 (<150) mg/dL Cholesterol 246 H (<200) mg/dL LDL Cholesterol, Calc 152 H (<100) mg/dL HDL Cholesterol 79 (>40) mg/dL Urine Color Urine Appearance Urine pH (5.0-9.0) Ur Specific [place] (1.005-1.025) Urine Protein (Neg-Trace) mg/dL Urine Glucose (UA) (Negative) mg/dL Urine Ketones (Negative) mg/dL Urine Blood (Negative) Urine Nitrite (Negative) Ur Leukocyte Esterase (Negative) Urine RBC (0-2) /HPF Urine WBC (0-5) /HPF Ur Squamous Epith Cells (0-2) /HPF Urine Bacteria (None Seen) Hyaline Casts (0-2) /LPF 07/18/24 07/18/24 Range/Units 18:58 19:06 WBC (4.8-10.8) X10*3/uL RBC (4.20-5.50) X10*6/uL Hgb (12.0-16.0) g/dl Hct (37.0-47.0) % MCV (80.0-98.0) fL MCH (27.0-33.0) pg MCHC (31.0-35.0) g/dl RDW (11.0-16.0) % Plt Count (160-400) X10*3/uL MPV (9.4-12.3) fL Immature Gran % (Auto) (0.0-0.4) % Neut % (Auto) (45-73) % Lymph % (Auto) (20-40) % [place] % (Auto) (2-11) % Eos % (Auto) (0-4) % Baso % (Auto) (0-2) % Lymph # (Auto) (1.2-4.9) X10*3/uL [place] # (Auto) (0.1-1.2) X10*3/uL Eos # (Auto) (0.0-0.4) X10*3/uL Baso # (Auto) (0.0-0.2) X10*3/uL Abs Immat Gran (auto) (0.00-0.03) X10*3/uL Absolute Neuts (auto) (2.0-8.3) x10*3/uL Absolute Nucleated RBC (0.0-0.012) X10*3/uL Nucleated RBC % (auto) (0.0-0.2) /100WBC PT (10.9-12.4) SEC Whole Blood PT (11.1-13.5) sec INR (0.9-1.1) Whole Blood INR (0.9-1.1) APTT (26.0-36.8) SEC Sodium (135-145) mmol/L Potassium (3.3-5.1) mmol/L Chloride (96-108) mmol/L Carbon Dioxide (22-29) mmol/L Anion Gap (12-20) BUN (9-16) mg/dL Creatinine (0.5-1.4) mg/dL Estim Creat Clear Calc Estimated GFR POC Glucose (60-115) mg/dL Random Glucose (60-115) mg/dL Calcium (8.4-10.2) mg/dL Troponin I High Sens (<3.5-17.0) ng/L Triglycerides (<150) mg/dL Cholesterol (<200) mg/dL LDL Cholesterol, Calc (<100) mg/dL HDL Cholesterol (>40) mg/dL Urine Color Yellow Yellow Urine Appearance Clear Clear Urine pH 7.0 7.0 (5.0-9.0) Ur Specific [place] 1.020 1.020 (1.005-1.025) Urine Protein Negative Negative (Neg-Trace) mg/dL Urine Glucose (UA) Negative Negative (Negative) mg/dL Urine Ketones Negative Negative (Negative) mg/dL Urine Blood Negative Negative (Negative) Urine Nitrite Negative Negative (Negative) Ur Leukocyte Esterase Small (1+) H Small (1+) H (Negative) Urine RBC 0-2 0-2 (0-2) /HPF Urine WBC 0-5 0-5 (0-5) /HPF Ur Squamous Epith Cells 0-2 0-2 (0-2) /HPF Urine Bacteria None Seen None Seen (None Seen) Hyaline Casts 0-2 0-2 (0-2) /LPF Discharge Plan Discharge Clinical Impression: Acute CVA (cerebrovascular accident) Prescriptions: No Action buspirone 10 mg tablet 10 mg PO BID acetaminophen [Tylenol] 325 mg Tablet 650 mg PO Q4H PRN (Reason: Pain) ibuprofen 200 mg Tablet 400 mg PO Q6H PRN (Reason: Pain) atorvastatin 40 mg Tablet 40 mg PO BEDTIME Qty: 90 0RF lisinopril 20 mg Tablet 20 mg PO DAILY Qty: 180 0RF Protocol: Hold for SBP< HOLD for SBP < : 90 Eliquis 5 mg Tablet 5 mg PO Q12H Qty: 180 0RF aspirin 81 mg Tablet,Delayed Release (Dr/Ec) 81 mg PO DAILY Qty: 90 0RF (DME) Blood Pressure Cuff Misc See Rx Instructions .Route Qty: 1 1RF Rx Instructions: As directed sertraline 50 mg tablet 75 mg PO DAILY Qty: 45 1RF carvedilol [Coreg] 3.125 mg tablet 3.125 mg PO DAILY Qty: 90 0RF Rx Instructions: must administer with a meal/food Print Language: [place]
[2024-07-18 17:07] LABS: Glucose, Whole Blood 91 mg/dL (60-115)
--- NOTE | 2024-07-18 17:12 | ED_ITS ---
HPI - Neuro Symptoms/Deficit General Chief Complaint: Stroke Stated Complaint: Stroke? Time Seen by Provider: 07/18/24 17:09 History of Present Illness HPI Narrative: Patient is an 83-year-old female with a history of hypertension hypercholesterolemia. Had a previous history of CVA. Patient was seen on Sunday at that time had difficulty with speech. CTA of the head showed a posterior M2 lesion in the left MCA. Patient is right-hand dominant. The only deficit from that particular stroke was difficulty with speech. There is no upper or lower extremity motor weakness. There is some confusion noted. Patient was discharged home yesterday. At that time daughter felt patient's speech is the new norm. This morning noted patient to have worsening speech. More confusion. Although there is no weaknesses in the upper or lower extremity there is no gross change in vision. Patient was sent to the ED immediately for further evaluation. Patient is already on Eliquis due to the previous stroke so she is not a good candidate for tPA. Patient symptom last known well time was yesterday when she was discharged. She is not a candidate for tPA due to time. Related Data Home Medications ?Medication ?Instructions ?Recorded ?Confirmed acetaminophen 325 mg tablet 650 mg PO Q4H PRN Pain 07/15/24 07/15/24 (Tylenol) buspirone 10 mg tablet 10 mg PO BID 07/15/24 07/15/24 ibuprofen 200 mg tablet 400 mg PO Q6H PRN Pain 07/15/24 07/15/24 Previous Rx's ?Medication ?Instructions ?Recorded miscellaneous medical supply #1 ea 04/11/24 (Blood Pressure Cuff) sertraline 50 mg tablet 75 mg (1.5 x 50 mg) PO DAILY #45 05/30/24 tabs carvedilol 3.125 mg tablet (Coreg) 3.125 mg PO DAILY #90 tabs 06/27/24 apixaban 5 mg tablet (Eliquis) 5 mg PO Q12H #180 tabs 07/17/24 aspirin 81 mg tablet,delayed 81 mg PO DAILY #90 tabs 07/17/24 release atorvastatin 40 mg tablet 40 mg PO BEDTIME #90 tabs 07/17/24 lisinopril 20 mg tablet 20 mg PO DAILY #180 tabs 07/17/24 Allergies Allergy/AdvReac Type Severity Reaction Status Date / Time clonidine AdvReac HTN Verified 07/18/24 16:55 Review of Systems 2 Review of Systems: Positive confusion Yes all other systems are reviewed and are negative [facility] Past Medical History Attestation statement: The following information was validated with the patient. Medical History ROLF (generalized anxiety disorder) HTN (hypertension) LVH (left ventricular hypertrophy) CHF (congestive heart failure) Skin cancer Anxiety Surgical History Mammogram declined (~2024) Colon cancer screening declined (~2024) No pertinent past surgical history Family History Family History Sister Mental health disorder Cancer Parkinson disease Hypertension Paternal Grandmother Mental health disorder Brother Mental health disorder Cancer Parkinson disease Hypertension Cardiovascular disease Sister Cancer Father Hypertension Cardiovascular disease Mother Cardiovascular disease Son Diabetes Maternal Grandmother Diabetes Social History Social History Household Members: None Housing: House Are you a primary care consultant to a significant other at home: No Do you presently have visiting nurse or other home services: No (daughter checks in) Alcohol intake: current Alcohol intake frequency: a few times a week Patient Tobacco Use Status: Never used Tobacco Smoked in Last 30 Days: No e-Cigarette/Vaping Use: Never Used Second Hand Smoke Exposure: No Use of substances other than those prescribed or required for medical reasons: No Advance Directives: Yes Advance Directives on File: Yes Advance Directives Date on File: 04/09/24 service: No Current occupational status: retired Cognitive needs: No Hearing needs: No Vision needs: No Physical Exam 2 Vital Signs: Vital Signs: Last Vital Signs Temp 98.2 F 07/18/24 16:54 Pulse 64 07/18/24 20:00 Resp 14 07/18/24 20:00 BP 153/64 H 07/18/24 20:00 Pulse Ox 98 07/18/24 20:00 O2 Del Method Room Air 07/18/24 20:00 BMI result Body Mass Index 26.2 Appearance: Alert. Oriented X3. No acute distress. Eyes: Pupils equal, round and reactive to light. ENT: Pharynx normal. Neck: Normal inspection. Neck supple. No lymph nodes noted. No crepitus CVS: Normal heart rate and rhythm. Pulses normal. Normal S1 and S2 Respiratory: No respiratory distress. Breath sounds normal. No Wheezing. No rales Abdomen: Soft and nontender. No rigidity. No distention. good BS x4 Skin: Skin warm and dry. Normal skin color. Normal skin turgor. Extremities: No lower extremity edema. Neurovascular intact to all extremities. No Lacerations. No Rash Neuro: Oriented X 3. No motor deficit. No sensory deficit. Moving all extermities. No slurred speech Medications Administered Discontinued Medications Generic Name Dose Route Start Last Admin Trade Name Freq PRN Reason Stop Dose Admin Iohexol 70 ml 07/18/24 17:29 07/18/24 17:29 Iohexol 350 Mg/Ml 100 Ml Infus..Btl IV 07/18/24 17:30 70 ml ONCE ONE Administration Medical Decision Making Medical Decision Making MDM Narrative: Patient had increasing confusion. Speech seems to be worse since discharge. Already on Eliquis. Patient's urine showed no signs of infection. Patient's electrolytes unremarkable. CT scan of the head showed a question acute stroke in the frontal area. CT angio showed the same lesion that was there on a previous CTA. Patient's troponin is negative. White count is normal hemoglobin is baseline no signs of anemia. Will admit for further evaluation. Differential Diagnosis Differential Diagnoses: The differential diagnosis associated with the presentation includes Intracranial bleed. Admission/Observation Consideration of admission/observation: Escalation of care including admission/observation considered We will need to be admitted for further monitoring Consult Healthcare Provider Management of the patient was discussed with: Hospitalist Lab Data 07/18/24 17:30 07/18/24 17:30 Labs: Lab Results 07/18/24 07/18/24 07/18/24 Range/Units 17:03 17:30 18:16 WBC 5.2 (4.8-10.8) X10*3/uL RBC 4.22 (4.20-5.50) X10*6/uL Hgb 13.7 (12.0-16.0) g/dl Hct 39.6 (37.0-47.0) % MCV 93.8 (80.0-98.0) fL MCH 32.5 (27.0-33.0) pg MCHC 34.6 (31.0-35.0) g/dl RDW 13.2 (11.0-16.0) % Plt Count 208 (160-400) X10*3/uL MPV 10.1 (9.4-12.3) fL Immature Gran % (Auto) 0.4 (0.0-0.4) % Neut % (Auto) 66.2 (45-73) % Lymph % (Auto) 15.8 L (20-40) % [place] % (Auto) 14.1 H (2-11) % Eos % (Auto) 2.9 (0-4) % Baso % (Auto) 0.6 (0-2) % Lymph # (Auto) 0.8 L (1.2-4.9) X10*3/uL [place] # (Auto) 0.7 (0.1-1.2) X10*3/uL Eos # (Auto) 0.2 (0.0-0.4) X10*3/uL Baso # (Auto) 0.0 (0.0-0.2) X10*3/uL Abs Immat Gran (auto) 0.02 (0.00-0.03) X10*3/uL Absolute Neuts (auto) 3.4 (2.0-8.3) x10*3/uL Absolute Nucleated RBC 0.000 (0.0-0.012) X10*3/uL Nucleated RBC % (auto) 0.0 (0.0-0.2) /100WBC PT 12.5 H (10.9-12.4) SEC Whole Blood PT 13.0 (11.1-13.5) sec INR 1.1 (0.9-1.1) Whole Blood INR 1.1 (0.9-1.1) APTT 31.0 (26.0-36.8) SEC Sodium 136 (135-145) mmol/L Potassium 3.8 (3.3-5.1) mmol/L Chloride 101 (96-108) mmol/L Carbon Dioxide 26 (22-29) mmol/L Anion Gap 13 (12-20) BUN 11 (9-16) mg/dL Creatinine 0.64 (0.5-1.4) mg/dL Estim Creat Clear Calc 64.8 Estimated GFR > 60 POC Glucose 91 (60-115) mg/dL Random Glucose 99 (60-115) mg/dL Calcium 8.8 (8.4-10.2) mg/dL Troponin I High Sens 9.2 D (<3.5-17.0) ng/L Triglycerides 78 (<150) mg/dL Cholesterol 246 H (<200) mg/dL LDL Cholesterol, Calc 152 H (<100) mg/dL HDL Cholesterol 79 (>40) mg/dL Urine Color Urine Appearance Urine pH (5.0-9.0) Ur Specific [place] (1.005-1.025) Urine Protein (Neg-Trace) mg/dL Urine Glucose (UA) (Negative) mg/dL Urine Ketones (Negative) mg/dL Urine Blood (Negative) Urine Nitrite (Negative) Ur Leukocyte Esterase (Negative) Urine RBC (0-2) /HPF Urine WBC (0-5) /HPF Ur Squamous Epith Cells (0-2) /HPF Urine Bacteria (None Seen) Hyaline Casts (0-2) /LPF 07/18/24 07/18/24 Range/Units 18:58 19:06 WBC (4.8-10.8) X10*3/uL RBC (4.20-5.50) X10*6/uL Hgb (12.0-16.0) g/dl Hct (37.0-47.0) % MCV (80.0-98.0) fL MCH (27.0-33.0) pg MCHC (31.0-35.0) g/dl RDW (11.0-16.0) % Plt Count (160-400) X10*3/uL MPV (9.4-12.3) fL Immature Gran % (Auto) (0.0-0.4) % Neut % (Auto) (45-73) % Lymph % (Auto) (20-40) % [place] % (Auto) (2-11) % Eos % (Auto) (0-4) % Baso % (Auto) (0-2) % Lymph # (Auto) (1.2-4.9) X10*3/uL [place] # (Auto) (0.1-1.2) X10*3/uL Eos # (Auto) (0.0-0.4) X10*3/uL Baso # (Auto) (0.0-0.2) X10*3/uL Abs Immat Gran (auto) (0.00-0.03) X10*3/uL Absolute Neuts (auto) (2.0-8.3) x10*3/uL Absolute Nucleated RBC (0.0-0.012) X10*3/uL Nucleated RBC % (auto) (0.0-0.2) /100WBC PT (10.9-12.4) SEC Whole Blood PT (11.1-13.5) sec INR (0.9-1.1) Whole Blood INR (0.9-1.1) APTT (26.0-36.8) SEC Sodium (135-145) mmol/L Potassium (3.3-5.1) mmol/L Chloride (96-108) mmol/L Carbon Dioxide (22-29) mmol/L Anion Gap (12-20) BUN (9-16) mg/dL Creatinine (0.5-1.4) mg/dL Estim Creat Clear Calc Estimated GFR POC Glucose (60-115) mg/dL Random Glucose (60-115) mg/dL Calcium (8.4-10.2) mg/dL Troponin I High Sens (<3.5-17.0) ng/L Triglycerides (<150) mg/dL Cholesterol (<200) mg/dL LDL Cholesterol, Calc (<100) mg/dL HDL Cholesterol (>40) mg/dL Urine Color Yellow Yellow Urine Appearance Clear Clear Urine pH 7.0 7.0 (5.0-9.0) Ur Specific [place] 1.020 1.020 (1.005-1.025) Urine Protein Negative Negative (Neg-Trace) mg/dL Urine Glucose (UA) Negative Negative (Negative) mg/dL Urine Ketones Negative Negative (Negative) mg/dL Urine Blood Negative Negative (Negative) Urine Nitrite Negative Negative (Negative) Ur Leukocyte Esterase Small (1+) H Small (1+) H (Negative) Urine RBC 0-2 0-2 (0-2) /HPF Urine WBC 0-5 0-5 (0-5) /HPF Ur Squamous Epith Cells 0-2 0-2 (0-2) /HPF Urine Bacteria None Seen None Seen (None Seen) Hyaline Casts 0-2 0-2 (0-2) /LPF Independent Interpretation I performed an independent interpretation of an: EKG (My interpretation of patient's EKG showed a sinus arrhythmia. Heart rate is proximally 70 QRS is normal QTC is normal) and CT Scan (CT head showed no acute bleed. CT angio showed same left-sided MCA lesion) Radiology Impression Discussion of test interpretation with radiology: I have reviewed the radiologist's reading. External Record Review External record reviewed: Inpatient record NIH Stroke Scale Internal: Initial- Upon Arrival Time: 17:14 Level of Consciousness: Alert Level of Consciousness Questions: Answers both questions correctly Level of Consciousness Commands: Performs both tasks correctly Best Gaze: Normal Facial Palsy: Partial paralysis Motor Arm (Right): No drift Motor Arm (Left): No drift Motor Leg (Right): No drift Motor Leg (Left): No drift Limb Ataxia: Absent Best Language: Severe aphasia Dysarthia: Severe dysarthria Discharge Plan Discharge Clinical Impression: Acute CVA (cerebrovascular accident) Patient Disposition: Admitted As Inpatient Prescriptions: No Action buspirone 10 mg tablet 10 mg PO BID acetaminophen [Tylenol] 325 mg Tablet 650 mg PO Q4H PRN (Reason: Pain) ibuprofen 200 mg Tablet 400 mg PO Q6H PRN (Reason: Pain) atorvastatin 40 mg Tablet 40 mg PO BEDTIME Qty: 90 0RF lisinopril 20 mg Tablet 20 mg PO DAILY Qty: 180 0RF Protocol: Hold for SBP< HOLD for SBP < : 90 Eliquis 5 mg Tablet 5 mg PO Q12H Qty: 180 0RF aspirin 81 mg Tablet,Delayed Release (Dr/Ec) 81 mg PO DAILY Qty: 90 0RF (DME) Blood Pressure Cuff Misc See Rx Instructions .Route Qty: 1 1RF Rx Instructions: As directed sertraline 50 mg tablet 75 mg PO DAILY Qty: 45 1RF carvedilol [Coreg] 3.125 mg tablet 3.125 mg PO DAILY Qty: 90 0RF Rx Instructions: must administer with a meal/food Print Language: Romanian
[2024-07-18] MEDS: iohexoL 350 MG/ML 100 ML INFUS..BTL 70 ML IV (17:29)
--- NOTE | 2024-07-18 17:35 | ECG_ITS ---
Test Reason : STROKE Blood Pressure : */* mmHG Vent. Rate : 61 BPM Atrial Rate : 61 BPM P-R Int : 200 ms QRS Dur : 116 ms QT Int : 460 ms P-R-T Axes : 40 -12 77 degrees QTcB Int : 463 ms Sinus rhythm with Premature atrial complexes Left ventricular hypertrophy with QRS widening and repolarization abnormality ( R in aVL , [place] product ) Abnormal ECG When compared with ECG of 18-Jul-2024 17:29, Premature atrial complexes are now Present QRS axis Shifted right Non-specific change in ST segment in Lateral leads Referred By: Generic ED Physician Electronically Signed By: Abelardo Sanchez
[2024-07-18 17:53] LABS: MANUAL DIFF FLAG NO
[2024-07-18 17:55] LABS: Basophils Percent Auto 0.6 % (0-2); Eosinophils Absolute Auto 0.2 X10*3/uL (0.0-0.4); Eosinophils Percent Auto 2.9 % (0-4); Hematocrit 39.6 % (37.0-47.0); Hemoglobin 13.7 g/dl (12.0-16.0); Imm Gran Abs Auto 0.02 X10*3/uL (0.00-0.03); Imm Gran Pct Auto 0.4 % (0.0-0.4); Lymphocytes Absolute Auto 0.8 X10*3/uL (1.2-4.9); Lymphocytes Percent Auto 15.8 % (20-40); Mean Corpuscular HGB Conc 34.6 g/dl (31.0-35.0); Mean Corpuscular Hemoglobin 32.5 pg (27.0-33.0); Mean Corpuscular Volume 93.8 fL (80.0-98.0); Mean Platelet Volume 10.1 fL (9.4-12.3); Monocytes Absolute Auto 0.7 X10*3/uL (0.1-1.2); Monocytes Percent Auto 14.1 % (2-11); Neutrophils Absolute Auto 3.4 x10*3/uL (2.0-8.3); Neutrophils Percent Auto 66.2 % (45-73); Platelet Count 208 X10*3/uL (160-400); Red Blood Count 4.22 X10*6/uL (4.20-5.50); Red Cell Distribution Width 13.2 % (11.0-16.0); White Blood Count 5.2 X10*3/uL (4.8-10.8)
[2024-07-18 18:04] LABS: INTERNATIONAL NORM RATIO 1.1 (0.9-1.1); Prothrombin Time 12.5 SEC (10.9-12.4)
[2024-07-18 18:07] LABS: Stroke Lab Use COMPLETE
[2024-07-18 18:10] LABS: Anion Gap 13 (12-20); Blood Urea Nitrogen 11 mg/dL (9-16); Calcium 8.8 mg/dL (8.4-10.2); Carbon Dioxide 26 mmol/L (22-29); Chloride 101 mmol/L (96-108); Cholesterol 246 mg/dL (<200); Creatinine Clr Calc Pharmacy 64.8; Estimated Glomerular Filt Rate > 60; Glucose Random 99 mg/dL (60-115); HDL Cholesterol 79 mg/dL (>40); LDL Cholesterol Calculated 152 mg/dL (<100); Potassium 3.8 mmol/L (3.3-5.1); Sodium 136 mmol/L (135-145); Triglycerides 78 mg/dL (<150)
[2024-07-18 18:16] LABS: Troponin-I High Sensitivity 9.2 ng/L (<3.5-17.0)
[2024-07-18 18:24] LABS: ~PT, ~INR - Anti Coag Clinic 1.1 (0.9-1.1)
[2024-07-18 19:02] VITALS: BP 167/88; PULSE 64; RESP 14; O2SAT 97
[2024-07-18 19:05] LABS: Appearance Urine Clear; Color Urine Yellow; Glucose Urine UA Negative (Negative); Leukocyte Esterase Urine Small (1+) (Negative); Nitrite Urine Negative (Negative); UMIC TRIGGER UACC YES; Urine Blood Negative (Negative); Urine Ketones Negative (Negative); Urine Protein Negative (Neg-Trace)
[2024-07-18 19:22] LABS: Bacteria Urine None Seen (None Seen); Hyaline Casts Urine 0-2 /LPF (0-2); RBC Urine 0-2 /HPF (0-2); Squamous Epithelial Cell Urine 0-2 /HPF (0-2); UACC Culture Trigger YES; WBC Urine 0-5 /HPF (0-5)
[2024-07-18 19:22] LABS: Appearance Urine Clear; Color Urine Yellow; Glucose Urine UA Negative (Negative); Leukocyte Esterase Urine Small (1+) (Negative); Nitrite Urine Negative (Negative); UMIC TRIGGER UACC YES; Urine Blood Negative (Negative); Urine Ketones Negative (Negative); Urine Protein Negative (Neg-Trace)
[2024-07-18 19:32] LABS: Bacteria Urine None Seen (None Seen); Hyaline Casts Urine 0-2 /LPF (0-2); RBC Urine 0-2 /HPF (0-2); Squamous Epithelial Cell Urine 0-2 /HPF (0-2); UACC Culture Trigger YES; WBC Urine 0-5 /HPF (0-5)
[2024-07-18 20:00] VITALS: BP 153/64; PULSE 64; RESP 14; O2SAT 98
--- NOTE | 2024-07-18 21:47 | PHA.MEDREC ---
Pharmacy Consult ? Medication Reconciliation Pharmacy has completed the medication reconciliation. PAtients daughter at bedside and was able to name all medications, doses, and timing. She did confirm the Buspar is taken BID not TID.
--- NOTE | 2024-07-18 22:10 | P.HPHOSP_ITS ---
History of Present Illness Date of Service: 07/18/24 Attending physician on admission: Jenna Birch Chief Complaint: facial droop and aphasia Patient is an 83-year-old female with a past medical history significant for HFrEF (EF 40% 04/16/2024), HTN, PVD, LVH, and recent CVA left MCA territory with a focal?hemorrhagic component in the left temporoparietal subcortical white?matter, probable embolus, M1, M2 and M3? segments, left MCA, slow flow versus thrombus, left sigmoid and transverse sinuses and left? internal jugular bulb, who presented to the ED today due to increased right-sided facial droop and aphasia. This was 1st noted possibly last night however worsened throughout the day and has not improved since arriving to the ED. patient's daughter states that she has been working on word retrieval and was doing well yesterday however today she was unable to cite any of the words written on the white board. She felt that her gait was shuffled however no weakness. The patient is unable to give a history. Review of Systems 2 Review of Systems: Yes Unobtainable due to mental condition [facility] Medical History (Updated 07/18/24 @ 22:15 by Bailey Bazan PA-C) CVA (cerebral vascular accident) ROLF (generalized anxiety disorder) HTN (hypertension) LVH (left ventricular hypertrophy) CHF (congestive heart failure) Skin cancer Anxiety Family History Sister Mental health disorder Cancer Parkinson disease Hypertension Paternal Grandmother Mental health disorder Brother Mental health disorder Cancer Parkinson disease Hypertension Cardiovascular disease Sister Cancer Father Hypertension Cardiovascular disease Mother Cardiovascular disease Son Diabetes Maternal Grandmother Diabetes Surgical History Mammogram declined (~2024) Colon cancer screening declined (~2024) No pertinent past surgical history Social History Household Members: None Housing: House Are you a primary care navigator to a significant other at home: No Do you presently have visiting nurse or other home services: No (daughter checks in) Alcohol intake: current Alcohol intake frequency: a few times a week Patient Tobacco Use Status: Never used Tobacco Smoked in Last 30 Days: No e-Cigarette/Vaping Use: Never Used Second Hand Smoke Exposure: No Use of substances other than those prescribed or required for medical reasons: No Advance Directives: Yes Advance Directives on File: Yes Advance Directives Date on File: 04/09/24 service: No Current occupational status: retired Cognitive needs: No Hearing needs: No Vision needs: No Meds Allergies Allergy/AdvReac Type Severity Reaction Status Date / Time clonidine AdvReac HTN Verified 07/18/24 16:55 Active Medications: Current Medications Acetaminophen (Acetaminophen 325 Mg Tablet) 975 mg PO Q6H PRN PRN Reason: Pain, Mild 1-3,fever,headache Apixaban (Apixaban 5 Mg Tablet) 5 mg PO BID [facility] Aspirin (Aspirin Enteric Coated 81 Mg Tablet.Dr) 81 mg PO DAILY [facility] Atorvastatin Calcium (Atorvastatin Calcium 40 Mg Tablet) 40 mg PO BEDTIME MARYBETH Buspirone HCl (Buspirone Hcl 10 Mg Tablet) 10 mg PO BID [facility] Calcium Carbonate (Calcium Carbonate 750 Mg Tab.Chew) 750 mg PO Q4H PRN PRN Reason: Heartburn Magnesium Hydroxide (Milk Of Magnesia 30 Ml Oral.Susp) 30 ml PO DAILY PRN PRN Reason: Constipation Melatonin (Melatonin 3 Mg Tablet) 6 mg PO BEDTIME PRN PRN Reason: Insomnia Morphine Sulfate (Morphine Sulfate 4 Mg/Ml Cartridge) 2 mg IVPUSH Q4H PRN; Protocol PRN Reason: Pain, Severe (Pain Scale 7-10) Ondansetron HCl (Ondansetron Hcl 4 Mg/2 Ml Vial) 4 mg IVPUSH Q8H PRN PRN Reason: Nausea and Vomiting Oxycodone HCl (Oxycodone Hcl Immed Release 5 Mg Tablet) 5 mg PO Q6H PRN PRN Reason: Pain, Moderate(Pain Scale 4-6) Sertraline HCl (Sertraline Hcl 25 Mg Tablet) 75 mg PO DAILY [facility] Sodium Chloride (0.9 % Sodium Chloride Flush 3 Ml Syringe) 3 ml IVFLUSH [facility] Home Medications ?Medication ?Instructions ?Recorded ?Confirmed ?Last Taken ?Type acetaminophen 325 mg tablet 650 mg PO Q4H PRN Pain 07/15/24 07/18/24 Unknown History (Tylenol) buspirone 10 mg tablet 10 mg PO BID 07/15/24 07/18/24 07/18/24 History apixaban 5 mg tablet (Eliquis) 5 mg PO BID 07/18/24 07/18/24 07/18/24 History Physical Exam 2 Vital Signs and Narrative: Vital Signs: Last Vital Signs Temp 98.2 F 07/18/24 16:54 Pulse 64 07/18/24 20:00 Resp 14 07/18/24 20:00 BP 153/64 H 07/18/24 20:00 Pulse Ox 98 07/18/24 20:00 O2 Del Method Room Air 07/18/24 20:00 BMI result Body Mass Index 26.2 General: Alert. confused. no acute distress Resp: CTA bilaterally CVS: S1, S2, RRR GI: +BS, NT, no distention Skin: Warm, dry Neuro: PERRL, sensation intact throughout. slurred speech. right facial droop. tongue deviates right. Motor grossly intact bilaterally. Strength intact equal bilateral upper and lower extremities. Extremities: No LE edema Psych: Appropriate affect Results Labs 07/18/24 17:30 07/18/24 17:30 Labs: Laboratory Results - last 24 hr 07/18/24 07/18/24 07/18/24 17:03 17:30 18:16 MCV 93.8 MCH 32.5 MCHC 34.6 RDW 13.2 Plt Count 208 MPV 10.1 Immature Gran % (Auto) 0.4 Neut % (Auto) 66.2 Lymph % (Auto) 15.8 L [place] % (Auto) 14.1 H Eos % (Auto) 2.9 Baso % (Auto) 0.6 Lymph # (Auto) 0.8 L [place] # (Auto) 0.7 Eos # (Auto) 0.2 Baso # (Auto) 0.0 Abs Immat Gran (auto) 0.02 Absolute Neuts (auto) 3.4 Absolute Nucleated RBC 0.000 Nucleated RBC % (auto) 0.0 PT 12.5 H Whole Blood PT 13.0 INR 1.1 Whole Blood INR 1.1 APTT 31.0 Anion Gap 13 Estim Creat Clear Calc 64.8 Estimated GFR > 60 POC Glucose 91 Random Glucose 99 Calcium 8.8 Triglycerides 78 Cholesterol 246 H LDL Cholesterol, Calc 152 H HDL Cholesterol 79 Urine Color Urine Appearance Urine pH Ur Specific [place] Urine Protein Urine Glucose (UA) Urine Ketones Urine Blood Urine Nitrite Ur Leukocyte Esterase Urine RBC Urine WBC Ur Squamous Epith Cells Urine Bacteria Hyaline Casts 07/18/24 07/18/24 18:58 19:06 MCV MCH MCHC RDW Plt Count MPV Immature Gran % (Auto) Neut % (Auto) Lymph % (Auto) [place] % (Auto) Eos % (Auto) Baso % (Auto) Lymph # (Auto) [place] # (Auto) Eos # (Auto) Baso # (Auto) Abs Immat Gran (auto) Absolute Neuts (auto) Absolute Nucleated RBC Nucleated RBC % (auto) PT Whole Blood PT INR Whole Blood INR APTT Anion Gap Estim Creat Clear Calc Estimated GFR POC Glucose Random Glucose Calcium Triglycerides Cholesterol LDL Cholesterol, Calc HDL Cholesterol Urine Color Yellow Yellow Urine Appearance Clear Clear Urine pH 7.0 7.0 Ur Specific [place] 1.020 1.020 Urine Protein Negative Negative Urine Glucose (UA) Negative Negative Urine Ketones Negative Negative Urine Blood Negative Negative Urine Nitrite Negative Negative Ur Leukocyte Esterase Small (1+) H Small (1+) H Urine RBC 0-2 0-2 Urine WBC 0-5 0-5 Ur Squamous Epith Cells 0-2 0-2 Urine Bacteria None Seen None Seen Hyaline Casts 0-2 0-2 Assessment and Plan (1) Acute CVA (cerebrovascular accident): Status: Acute Plan Patient is an 83-year-old female with a past medical history significant for HFrEF (EF 40% 04/16/2024), HTN, PVD, LVH, and recent CVA left MCA territory with a focal?hemorrhagic component in the left temporoparietal subcortical white?matter, probable embolus, M1, M2 and M3? segments, left MCA, slow flow versus thrombus, left sigmoid and transverse sinuses and left? internal jugular bulb, who presented to the ED today due to increased right-sided facial droop and aphasia. Acute CVA-- new - head CT with infarction of the left posterior frontal lobe new from prior CT - CTA head/neck unchanged, complete occlusion of the left posterior superior MCA dominant M2 segment - not a candidate for TPA, outside window - UA negative - EKG with sinus rhythm, premature atrial complexes - pt already on eliquis, ASA and high intensity statin, continue all - passed bedside swallow - permissive hypertension - neurochecks Q2H - lipid panel with elevated LDL and cholesterol - monitor on tele - MRI brain in AM - neuro consult - PT/OT/PECAN HULLER eval Chronic HFrEF, no acute exacerbation -continue home meds when appropriate HTN - hold BP meds due to permissive hypertension, resume when appropriate Anxiety - continue sertraline and buspirone - Ativan as needed DNI VTE prophylaxis: Mando Patient with acute CVA frontal lobe, requiring admission for at least 2 midnights stay for cardiac monitoring and Neurology consultation. Quality Stroke Does the patient have a stroke diagnosis?: Yes Reason for No Anti-thrombotic by Day Two: Contraindicated VTE Prior VTE?: No VTE Risk Level:: Medical - moderate - high VTE Device Contraindication: Treatment Not Indicated VTE Drug Contraindication: N/A - Med Ordered
[2024-07-18] MEDS: busPIRone HCl 10 MG TABLET PO (22:16)
[2024-07-18] MEDS: Melatonin 3 MG TABLET 6 MG PO (22:16)
[2024-07-18] MEDS: Atorvastatin Calcium 40 MG TABLET PO (22:16)
[2024-07-18] MEDS: Apixaban 5 MG TABLET PO (22:16)
[2024-07-18 22:39] VITALS: BP 158/69; PULSE 59; RESP 18; O2SAT 95
--- NOTE | 2024-07-18 23:15 | PC.NURSE ---
This publicity writer assumed care of this Pt at this time.
[2024-07-19] VITALS (9 sets, daily range): BP systolic 103–171; BP diastolic 55–87; PULSE 53–64; RESP 16–20; TEMP 36.3–36.9; O2SAT 94–100; BMI 26.6
--- NOTE | 2024-07-19 | ECG_ITS ---
Test Reason : JAZMIN Blood Pressure : */* mmHG Vent. Rate : 55 BPM Atrial Rate : 55 BPM P-R Int : 226 ms QRS Dur : 114 ms QT Int : 504 ms P-R-T Axes : 68 2 107 degrees QTcB Int : 482 ms Sinus bradycardia with 1st degree A-V block with occasional Premature ventricular complexes and Premature atrial complexes Left ventricular hypertrophy with repolarization abnormality ( [place] product ) Abnormal ECG When compared with ECG of 18-Jul-2024 17:36, Premature ventricular complexes are now Present Referred By: Jenna Birch Electronically Signed By: Abelardo Sanchez
[2024-07-19] MEDS: 0.9 % Sodium Chloride Flush 3 ML SYRINGE IVFLUSH ×3 (00:21→19:49)
--- NOTE | 2024-07-19 02:11 | PC.NURSE ---
Pt able to answer yes on no questions, not able to form sentences, word salad, able to follow some basic commands, passed swallow eval, pills whole, ambulates independently, stand by assist to BR. No extremity weakness.
--- NOTE | 2024-07-19 03:48 | PC.NURSE ---
Addendum entered by Annemarie Banuelos 07/19/24 04:08: EKG reviewed by Dr. Birch, no new orders at this time. Original Note: Pt HR noted to decrease to 44 BMP, Dr. Birch made aware, verbal order for EKG.
[2024-07-19 04:54] LABS: Hematocrit 38.7 % (37.0-47.0); Hemoglobin 13.7 g/dl (12.0-16.0); Mean Corpuscular HGB Conc 35.4 g/dl (31.0-35.0); Mean Corpuscular Hemoglobin 32.5 pg (27.0-33.0); Mean Corpuscular Volume 91.9 fL (80.0-98.0); Mean Platelet Volume 10.1 fL (9.4-12.3); Platelet Count 188 X10*3/uL (160-400); Red Blood Count 4.21 X10*6/uL (4.20-5.50); Red Cell Distribution Width 13.3 % (11.0-16.0)
[2024-07-19 05:05] LABS: Anion Gap 15 (12-20); Blood Urea Nitrogen 12 mg/dL (9-16); Calcium 8.8 mg/dL (8.4-10.2); Carbon Dioxide 23 mmol/L (22-29); Chloride 105 mmol/L (96-108); Creatinine Clr Calc Pharmacy 66.8; Estimated Glomerular Filt Rate > 60; Glucose Random 110 mg/dL (60-115); Potassium 3.5 mmol/L (3.3-5.1); Sodium 139 mmol/L (135-145)
[2024-07-19] MEDS: busPIRone HCl 10 MG TABLET PO ×2 (08:33→19:45)
[2024-07-19] MEDS: Sertraline HCL 25 MG TABLET 75 MG PO (08:33)
[2024-07-19] MEDS: Aspirin Enteric Coated 81 MG TABLET.DR PO (08:33)
[2024-07-19] MEDS: Apixaban 5 MG TABLET PO ×2 (08:33→19:44)
--- NOTE | 2024-07-19 11:08 | MHC.CM.PN ---
Addendum entered by Alexia Alas RN 07/19/24 11:48: Daughter provided copies of HCP and MOLST. Placed in chart. Original Note: CM assessment completed w/ patient and family at bedside. Patient recently admitted for CVA. DC'd home w/ new [facility] on 07/17. However, returned to [facility] 07/18. Lives alone. Daughter, Elizabeth, lives next door and assists PRN. Independent w/ care. Denies use of DME. PCP Vane Ladd [facility] Daughter, Leni, reports she is HCP and will bring in a copy along w/ MOLST. DP: Goal is acute rehab. [facility] is first choice. PT eval pending. If STR is recommended would prefer [facility]. CM will continue to follow.
--- NOTE | 2024-07-19 11:10 | PM.NEUROCN ---
History of Present Illness Data of Consult Service Date: 07/19/24 Primary Care Provider: Vane Ladd, [facility]- HPI Reason for consult: Stroke 83 years old woman with underlying left middle cerebral artery atherosclerotic disease previously resulting in multiple small emboli in that area causing right facial weakness in partial aphasia came to emergency room with further worsening of her symptoms. Family noted that her face was more drooped, language was more affected, and walking was more affected. There was no seizure-like episode. Review of Systems Review of Systems: No recent shortness of breath or cold or flu-like illness PMFSH Past Medical History Medical History (Updated 07/19/24 @ 11:13 by Nakia Huizar MD) CVA (cerebral vascular accident) ROLF (generalized anxiety disorder) HTN (hypertension) LVH (left ventricular hypertrophy) CHF (congestive heart failure) Skin cancer Anxiety Family History Family History Sister Mental health disorder Cancer Parkinson disease Hypertension Paternal Grandmother Mental health disorder Brother Mental health disorder Cancer Parkinson disease Hypertension Cardiovascular disease Sister Cancer Father Hypertension Cardiovascular disease Mother Cardiovascular disease Son Diabetes Maternal Grandmother Diabetes Surgical History Surgical History Mammogram declined (~2024) Colon cancer screening declined (~2024) No pertinent past surgical history Social History Social History Household Members: None Both parents involved: No Caregiver staying overnight: No Housing: House Are you a primary coronary care unit nurse to a significant other at home: No Do you presently have visiting nurse or other home services: No 75 years or older and lives alone: No Alcohol intake: current Alcohol intake frequency: a few times a week Patient Tobacco Use Status: Never used Tobacco e-Cigarette/Vaping Use: Never Used Second Hand Smoke Exposure: No Advance Directives Date on File: 04/09/24 service: No Current occupational status: retired Cognitive needs: No Hearing needs: No Vision needs: No Meds Allergies Allergy/AdvReac Type Severity Reaction Status Date / Time clonidine AdvReac HTN Verified 07/18/24 16:55 Active Medications: Current Medications Acetaminophen (Acetaminophen 325 Mg Tablet) 975 mg PO Q6H PRN PRN Reason: Pain, Mild 1-3,fever,headache Apixaban (Apixaban 5 Mg Tablet) 5 mg PO BID [facility] Last Admin: 07/19/24 08:33 Dose: 5 mg Aspirin (Aspirin Enteric Coated 81 Mg Tablet.Dr) 81 mg PO DAILY [facility] Last Admin: 07/19/24 08:33 Dose: 81 mg Atorvastatin Calcium (Atorvastatin Calcium 40 Mg Tablet) 40 mg PO BEDTIME [facility] Last Admin: 07/18/24 22:16 Dose: 40 mg Buspirone HCl (Buspirone Hcl 10 Mg Tablet) 10 mg PO BID [facility] Last Admin: 07/19/24 08:33 Dose: 10 mg Calcium Carbonate (Calcium Carbonate 750 Mg Tab.Chew) 750 mg PO Q4H PRN PRN Reason: Heartburn Magnesium Hydroxide (Milk Of Magnesia 30 Ml Oral.Susp) 30 ml PO DAILY PRN PRN Reason: Constipation Melatonin (Melatonin 3 Mg Tablet) 6 mg PO BEDTIME PRN PRN Reason: Insomnia Last Admin: 07/18/24 22:16 Dose: 6 mg Morphine Sulfate (Morphine Sulfate 4 Mg/Ml Cartridge) 2 mg IVPUSH Q4H PRN; Protocol PRN Reason: Pain, Severe (Pain Scale 7-10) Ondansetron HCl (Ondansetron Hcl 4 Mg/2 Ml Vial) 4 mg IVPUSH Q8H PRN PRN Reason: Nausea and Vomiting Oxycodone HCl (Oxycodone Hcl Immed Release 5 Mg Tablet) 5 mg PO Q6H PRN PRN Reason: Pain, Moderate(Pain Scale 4-6) Sertraline HCl (Sertraline Hcl 25 Mg Tablet) 75 mg PO DAILY [facility] Last Admin: 07/19/24 08:33 Dose: 75 mg Sodium Chloride (0.9 % Sodium Chloride Flush 3 Ml Syringe) 3 ml IVFLUSH QSHIFT [facility] Last Admin: 07/19/24 08:33 Dose: 3 ml Home Medications ?Medication ?Instructions ?Recorded ?Confirmed ?Last Taken ?Type acetaminophen 325 mg tablet 650 mg PO Q4H PRN Pain 07/15/24 07/18/24 Unknown History (Tylenol) buspirone 10 mg tablet 10 mg PO BID 07/15/24 07/18/24 07/18/24 History apixaban 5 mg tablet (Eliquis) 5 mg PO BID 07/18/24 07/18/24 07/18/24 History Physical Exam Vital Signs: Vital Signs: Last Vital Signs Temp 97.9 F 07/19/24 08:00 Pulse 64 07/19/24 08:00 Resp 17 07/19/24 08:00 BP 156/70 H 07/19/24 08:00 Pulse Ox 99 07/19/24 08:00 O2 Del Method Room Air 07/19/24 08:00 BMI result Body Mass Index 26.6 Neuro: Other: She is alert and awake looking around with decreased spontaneity and fluency of speech. She could not repeat or name simple objects. She was stating some words and sentences that did not make sense. There was moderate right-sided facial weakness. She was anxious. Results Labs 07/19/24 04:29 07/19/24 04:29 Labs: Short CBC 07/18/24 07/19/24 Range/Units 17:30 04:29 WBC 5.2 5.0 (4.8-10.8) X10*3/uL Hgb 13.7 13.7 (12.0-16.0) g/dl Hct 39.6 38.7 (37.0-47.0) % Plt Count 208 188 (160-400) X10*3/uL BMP 07/18/24 07/19/24 17:30 04:29 Sodium 136 139 Potassium 3.8 3.5 Chloride 101 105 Carbon Dioxide 26 23 BUN 11 12 Creatinine 0.64 0.62 Calcium 8.8 8.8 Urine 07/18/24 07/18/24 Range/Units 18:58 19:06 Urine Color Yellow Yellow Urine Appearance Clear Clear Urine pH 7.0 7.0 (5.0-9.0) Ur Specific [place] 1.020 1.020 (1.005-1.025) Urine Protein Negative Negative (Neg-Trace) mg/dL Urine Glucose (UA) Negative Negative (Negative) mg/dL Assessment and Plan (1) CVA (cerebral vascular accident): Qualifiers: CVA mechanism: thrombosis Precerebral and cerebral artery: middle cerebral artery Laterality of affected vessel: left Qualified Code(s): I63.312 - Cerebral infarction due to thrombosis of left middle cerebral artery Status: Acute Probably further worsening of left middle cerebral artery syndrome. An MRI of brain without contrast is recommended for evaluation. Otherwise I would recommend continuing anticoagulation, aspirin and statin. Blood pressure control is recommended and speech and swallowing evaluation. Outpatient speech therapy might help. Procedures Date of Service Date of Service: 07/19/24
[2024-07-19] MEDS: Acetaminophen 325 MG TABLET 975 MG PO ×2 (11:25→19:44)
[2024-07-19] MEDS: LORazepam 0.5 MG TABLET PO ×2 (11:25→19:45)
--- NOTE | 2024-07-19 12:16 | P.PNIM_ITS ---
Subjective Subjective Date of Service: 07/19/24 Interval History: f/u on stroke has signficant word finding difficulty seems more pronounced today, no other focal neuro deficit no arrythmia on monitor Physical Exam 2 Vital Signs: Vital Signs: Last Vital Signs Temp 97.5 F 07/19/24 11:45 Pulse 58 07/19/24 11:45 Resp 17 07/19/24 11:45 BP 171/82 H 07/19/24 11:45 Pulse Ox 98 07/19/24 11:45 O2 Del Method Room Air 07/19/24 11:45 BMI result Body Mass Index 26.6 Appearing in no acute distress lung sounds are clear to auscultation heart regular rate rhythm, clear S1, S2 positive bowel sounds, abdomen is soft, nontender neuro patient is alert x3, no focal deficits Right facial droop, aphagia Objective Data Active Medications Acetaminophen (Acetaminophen 325 Mg Tablet) 975 mg PO Q6H PRN PRN Reason: Pain, Mild 1-3,fever,headache Last Admin: 07/19/24 11:25 Dose: 975 mg Documented By: BESSIE Apixaban (Apixaban 5 Mg Tablet) 5 mg PO BID [facility] LICENSE OF [facility] Last Admin: 07/19/24 08:33 Dose: 5 mg Documented By: BESSIE Aspirin (Aspirin Enteric Coated 81 Mg Tablet.) 81 mg PO DAILY ON [facility] OF [facility] Last Admin: 07/19/24 08:33 Dose: 81 mg Documented By: BESSIE Atorvastatin Calcium (Atorvastatin Calcium 40 Mg Tablet) 40 mg PO BEDTIME ON LICENSE OF [facility] Last Admin: 07/18/24 22:16 Dose: 40 mg Documented By: YENNY Buspirone HCl (Buspirone Hcl 10 Mg Tablet) 10 mg PO BID ON [facility] OF [facility] Last Admin: 07/19/24 08:33 Dose: 10 mg Documented By: BESSIE Calcium Carbonate (Calcium Carbonate 750 Mg Tab.Chew) 750 mg PO Q4H PRN PRN Reason: Heartburn Lorazepam (Lorazepam 0.5 Mg Tablet) 0.5 mg PO Q8H PRN PRN Reason: anxiety Last Admin: 07/19/24 11:25 Dose: 0.5 mg Documented By: BESSIE Magnesium Hydroxide (Milk Of Magnesia 30 Ml Oral.Susp) 30 ml PO DAILY PRN PRN Reason: Constipation Melatonin (Melatonin 3 Mg Tablet) 6 mg PO BEDTIME PRN PRN Reason: Insomnia Last Admin: 07/18/24 22:16 Dose: 6 mg Documented By: YENNY Morphine Sulfate (Morphine Sulfate 4 Mg/Ml Cartridge) 2 mg IVPUSH Q4H PRN; Protocol PRN Reason: Pain, Severe (Pain Scale 7-10) Ondansetron HCl (Ondansetron Hcl 4 Mg/2 Ml Vial) 4 mg IVPUSH Q8H PRN PRN Reason: Nausea and Vomiting Oxycodone HCl (Oxycodone Hcl Immed Release 5 Mg Tablet) 5 mg PO Q6H PRN PRN Reason: Pain, Moderate(Pain Scale 4-6) Sertraline HCl (Sertraline Hcl 25 Mg Tablet) 75 mg PO DAILY [facility] Last Admin: 07/19/24 08:33 Dose: 75 mg Documented By: BESSIE Sodium Chloride (0.9 % Sodium Chloride Flush 3 Ml Syringe) 3 ml IVFLUSH QSHIFT ON LICENSE OF [facility] Last Admin: 07/19/24 08:33 Dose: 3 ml Documented By: BESSIE Labs 07/19/24 04:29 07/19/24 04:29 Labs: Laboratory Results - last 24 hr 07/18/24 07/18/24 07/18/24 17:03 17:30 18:16 MCV 93.8 MCH 32.5 MCHC 34.6 RDW 13.2 Plt Count 208 MPV 10.1 Immature Gran % (Auto) 0.4 Neut % (Auto) 66.2 Lymph % (Auto) 15.8 L Ellis % (Auto) 14.1 H Eos % (Auto) 2.9 Baso % (Auto) 0.6 Lymph # (Auto) 0.8 L Ellis # (Auto) 0.7 Eos # (Auto) 0.2 Baso # (Auto) 0.0 Abs Immat Gran (auto) 0.02 Absolute Neuts (auto) 3.4 Absolute Nucleated RBC 0.000 Nucleated RBC % (auto) 0.0 PT 12.5 H Whole Blood PT 13.0 INR 1.1 Whole Blood INR 1.1 APTT 31.0 Anion Gap 13 Estim Creat Clear Calc 64.8 Estimated GFR > 60 POC Glucose 91 Random Glucose 99 Calcium 8.8 Triglycerides 78 Cholesterol 246 H LDL Cholesterol, Calc 152 H HDL Cholesterol 79 Urine Color Urine Appearance Urine pH Ur Specific [place] Urine Protein Urine Glucose (UA) Urine Ketones Urine Blood Urine Nitrite Ur Leukocyte Esterase Urine RBC Urine WBC Ur Squamous Epith Cells Urine Bacteria Hyaline Casts 07/18/24 07/18/24 07/19/24 18:58 19:06 04:29 MCV 91.9 MCH 32.5 MCHC 35.4 H RDW 13.3 Plt Count 188 MPV 10.1 Immature Gran % (Auto) Neut % (Auto) Lymph % (Auto) Ellis % (Auto) Eos % (Auto) Baso % (Auto) Lymph # (Auto) Ellis # (Auto) Eos # (Auto) Baso # (Auto) Abs Immat Gran (auto) Absolute Neuts (auto) Absolute Nucleated RBC 0.000 Nucleated RBC % (auto) 0.0 PT Whole Blood PT INR Whole Blood INR APTT Anion Gap 15 Estim Creat Clear Calc 66.8 Estimated GFR > 60 POC Glucose Random Glucose 110 Calcium 8.8 Triglycerides Cholesterol LDL Cholesterol, Calc HDL Cholesterol Urine Color Yellow Yellow Urine Appearance Clear Clear Urine pH 7.0 7.0 Ur Specific [place] 1.020 1.020 Urine Protein Negative Negative Urine Glucose (UA) Negative Negative Urine Ketones Negative Negative Urine Blood Negative Negative Urine Nitrite Negative Negative Ur Leukocyte Esterase Small (1+) H Small (1+) H Urine RBC 0-2 0-2 Urine WBC 0-5 0-5 Ur Squamous Epith Cells 0-2 0-2 Urine Bacteria None Seen None Seen Hyaline Casts 0-2 0-2 Microbiology Microbiology Results: Microbiology 07/18/24 19:24 Urine Culture - Preliminary Urine clean catch - Clean Catch Midstream No growth to date. Assessment and Plan (1) Acute CVA (cerebrovascular accident): Status: Acute Plan Patient is an 83-year-old female with a past medical history significant for HFrEF (EF 40% 04/16/2024), HTN, PVD, LVH, and recent CVA left MCA territory with a focal?hemorrhagic component in the left temporoparietal subcortical white?matter, probable embolus, M1, M2 and M3? segments, left MCA, slow flow versus thrombus, left sigmoid and transverse sinuses and left? internal jugular bulb, who presented to the ED today due to increased right-sided facial droop and aphasia. Acute CVA head CT with infarction of the left posterior frontal lobe new from prior CT CTA head/neck unchanged, complete occlusion of the left posterior superior MCA dominant M2 segment not a candidate for TPA, outside window pt already on eliquis, ASA and high intensity statin, continue all passed bedside swallow MRI brain pending neuro consult Vascular consult for MCA occlusion PT/OT/PROGRAM DIRECTOR eval Chronic HFrEF, no acute exacerbation continue home meds when appropriate HTN Lisinopril restarted for elevated BP Anxiety continue sertraline and buspirone Ativan as needed DNI VTE prophylaxis: Eliquis Patient with acute CVA frontal lobe, requiring admission for at least 2 midnights stay for cardiac monitoring and Neurology consultation. Quality Stroke Does the patient have a stroke diagnosis?: Yes Reason for No Anti-thrombotic by Day Two: Contraindicated VTE Prior VTE?: No VTE Risk Level:: Medical - moderate - high VTE Device Contraindication: Treatment Not Indicated VTE Drug Contraindication: N/A - Med Ordered
[2024-07-19] MEDS: lisinopriL 20 MG TABLET PO (13:04)
[2024-07-19] MEDS: Atorvastatin Calcium 40 MG TABLET PO (19:45)
[2024-07-19] MEDS: Melatonin 3 MG TABLET 6 MG PO (19:45)
[2024-07-20] VITALS (7 sets, daily range): BP systolic 120–164; BP diastolic 63–85; PULSE 56–67; RESP 16–20; TEMP 36.1–37.1; O2SAT 96–99
[2024-07-20 06:30] LABS: Hematocrit 38.9 % (37.0-47.0); Hemoglobin 13.3 g/dl (12.0-16.0); Mean Corpuscular HGB Conc 34.2 g/dl (31.0-35.0); Mean Corpuscular Hemoglobin 32.2 pg (27.0-33.0); Mean Corpuscular Volume 94.2 fL (80.0-98.0); Mean Platelet Volume 10.4 fL (9.4-12.3); Platelet Count 187 X10*3/uL (160-400); Red Blood Count 4.13 X10*6/uL (4.20-5.50); Red Cell Distribution Width 13.2 % (11.0-16.0); White Blood Count 5.5 X10*3/uL (4.8-10.8)
[2024-07-20 06:48] LABS: Anion Gap 12 (12-20); Blood Urea Nitrogen 14 mg/dL (9-16); Calcium 8.8 mg/dL (8.4-10.2); Carbon Dioxide 25 mmol/L (22-29); Chloride 103 mmol/L (96-108); Creatinine Clr Calc Pharmacy 55.6; Estimated Glomerular Filt Rate > 60; Glucose Random 112 mg/dL (60-115); Potassium 3.8 mmol/L (3.3-5.1); Sodium 136 mmol/L (135-145)
[2024-07-20] MEDS: Sertraline HCL 25 MG TABLET 75 MG PO (08:55)
[2024-07-20] MEDS: Aspirin Enteric Coated 81 MG TABLET.DR PO (08:55)
[2024-07-20] MEDS: busPIRone HCl 10 MG TABLET PO ×2 (08:56→20:13)
[2024-07-20] MEDS: 0.9 % Sodium Chloride Flush 3 ML SYRINGE IVFLUSH ×3 (08:56→20:13)
[2024-07-20] MEDS: Apixaban 5 MG TABLET PO ×2 (08:56→20:13)
[2024-07-20] MEDS: lisinopriL 20 MG TABLET PO (08:56)
[2024-07-20] MEDS: Acetaminophen 325 MG TABLET 975 MG PO ×2 (08:57→16:43)
--- NOTE | 2024-07-20 10:28 | P.PNIM_ITS ---
Subjective Subjective Date of Service: 07/20/24 Interval History: f/u on stroke has signficant word finding difficulty seems more pronounced today, no other focal neuro deficit no arrythmia on monitor Physical Exam 2 Vital Signs: Vital Signs: Last Vital Signs Temp 97.2 F 07/20/24 07:08 Pulse 65 07/20/24 07:08 Resp 18 07/20/24 07:08 BP 164/85 H 07/20/24 08:56 Pulse Ox 99 07/20/24 07:08 O2 Del Method Room Air 07/20/24 07:08 BMI result Body Mass Index 26.6 Appearing in no acute distress lung sounds are clear to auscultation heart regular rate rhythm, clear S1, S2 positive bowel sounds, abdomen is soft, nontender neuro patient is alert x3, no focal deficits Facial droop Objective Data Active Medications Acetaminophen (Acetaminophen 325 Mg Tablet) 975 mg PO Q6H PRN PRN Reason: Pain, Mild 1-3,fever,headache Last Admin: 07/20/24 08:57 Dose: 975 mg Documented By: VERITO Apixaban (Apixaban 5 Mg Tablet) 5 mg PO BID [facility] Last Admin: 07/20/24 08:56 Dose: 5 mg Documented By: VERITO Aspirin (Aspirin Enteric Coated 81 Mg Tablet.) 81 mg PO DAILY [facility] Last Admin: 07/20/24 08:55 Dose: 81 mg Documented By: VERITO Atorvastatin Calcium (Atorvastatin Calcium 40 Mg Tablet) 40 mg PO BEDTIME [facility] Last Admin: 07/19/24 19:45 Dose: 40 mg Documented By: COLIN Buspirone HCl (Buspirone Hcl 10 Mg Tablet) 10 mg PO BID [facility] Last Admin: 07/20/24 08:56 Dose: 10 mg Documented By: VERITO Calcium Carbonate (Calcium Carbonate 750 Mg Tab.Chew) 750 mg PO Q4H PRN PRN Reason: Heartburn Lisinopril (Lisinopril 20 Mg Tablet) 20 mg PO DAILY [facility]; Protocol Last Admin: 07/20/24 08:56 Dose: 20 mg Documented By: VERITO Lorazepam (Lorazepam 0.5 Mg Tablet) 0.5 mg PO Q8H PRN PRN Reason: anxiety Last Admin: 07/19/24 19:45 Dose: 0.5 mg Documented By: COLIN Magnesium Hydroxide (Milk Of Magnesia 30 Ml Oral.Susp) 30 ml PO DAILY PRN PRN Reason: Constipation Melatonin (Melatonin 3 Mg Tablet) 6 mg PO BEDTIME PRN PRN Reason: Insomnia Last Admin: 07/19/24 19:45 Dose: 6 mg Documented By: COLIN Morphine Sulfate (Morphine Sulfate 4 Mg/Ml Cartridge) 2 mg IVPUSH Q4H PRN; Protocol PRN Reason: Pain, Severe (Pain Scale 7-10) Ondansetron HCl (Ondansetron Hcl 4 Mg/2 Ml Vial) 4 mg IVPUSH Q8H PRN PRN Reason: Nausea and Vomiting Oxycodone HCl (Oxycodone Hcl Immed Release 5 Mg Tablet) 5 mg PO Q6H PRN PRN Reason: Pain, Moderate(Pain Scale 4-6) Sertraline HCl (Sertraline Hcl 25 Mg Tablet) 75 mg PO DAILY [facility] Last Admin: 07/20/24 08:55 Dose: 75 mg Documented By: VERITO Sodium Chloride (0.9 % Sodium Chloride Flush 3 Ml Syringe) 3 ml IVFLUSH QSHIFT [facility] Last Admin: 07/20/24 08:56 Dose: 3 ml Documented By: VERITO Labs 07/20/24 06:09 07/20/24 06:09 Labs: Laboratory Results - last 24 hr 07/20/24 06:09 MCV 94.2 MCH 32.2 MCHC 34.2 RDW 13.2 Plt Count 187 MPV 10.4 Absolute Nucleated RBC 0.000 Nucleated RBC % (auto) 0.0 Anion Gap 12 Estim Creat Clear Calc 55.6 Estimated GFR > 60 Random Glucose 112 Calcium 8.8 Microbiology Microbiology Results: Microbiology 07/18/24 19:24 Urine Culture - Preliminary Urine clean catch - Clean Catch Midstream No growth to date. Assessment and Plan (1) Acute CVA (cerebrovascular accident): Status: Acute Plan Patient is an 83-year-old female with a past medical history significant for HFrEF (EF 40% 04/16/2024), HTN, PVD, LVH, and recent CVA left MCA territory with a focal?hemorrhagic component in the left temporoparietal subcortical white?matter, probable embolus, M1, M2 and M3? segments, left MCA, slow flow versus thrombus, left sigmoid and transverse sinuses and left? internal jugular bulb, who presented to the ED today due to increased right-sided facial droop and aphasia. Acute CVA. Evolving symptoms head CT with infarction of the left posterior frontal lobe new from prior CT CTA head/neck unchanged, complete occlusion of the left posterior superior MCA dominant M2 segment not a candidate for TPA, outside window pt already on eliquis, ASA and high intensity statin, continue all passed bedside swallow MRI brain showing increased size of ischemia within the left MCA territory neuro> continue current tx Vascular consult for MCA occlusion PT/OT/PLATFORM BUILDER eval Dysphagia Changed diet to puree Reconsult speech therapy Chronic HFrEF, no acute exacerbation continue home meds when appropriate HTN Lisinopril restarted for elevated BP Anxiety continue sertraline and buspirone Ativan as needed DNI VTE prophylaxis: Eliquis Patient with acute CVA frontal lobe, requiring admission for at least 2 midnights stay for cardiac monitoring and Neurology consultation. Quality Stroke Does the patient have a stroke diagnosis?: Yes Reason for No Anti-thrombotic by Day Two: Contraindicated VTE Prior VTE?: No VTE Risk Level:: Medical - moderate - high VTE Device Contraindication: Treatment Not Indicated VTE Drug Contraindication: N/A - Med Ordered
[2024-07-20] MEDS: Atorvastatin Calcium 40 MG TABLET PO (20:13)
[2024-07-20] MEDS: LORazepam 0.5 MG TABLET PO (20:13)
[2024-07-20] MEDS: Melatonin 3 MG TABLET 6 MG PO (20:18)
[2024-07-21 03:51] VITALS: BP 151/79; PULSE 60; RESP 16; TEMP 36.2; O2SAT 99
[2024-07-21 06:52] LABS: Anion Gap 13 (12-20); Blood Urea Nitrogen 13 mg/dL (9-16); Calcium 8.7 mg/dL (8.4-10.2); Carbon Dioxide 23 mmol/L (22-29); Chloride 104 mmol/L (96-108); Creatinine Clr Calc Pharmacy 65.1; Estimated Glomerular Filt Rate > 60; Glucose Random 106 mg/dL (60-115); Potassium 3.7 mmol/L (3.3-5.1); Sodium 136 mmol/L (135-145)
[2024-07-21 07:08] LABS: Hematocrit 37.8 % (37.0-47.0); Hemoglobin 13.1 g/dl (12.0-16.0); Mean Corpuscular HGB Conc 34.7 g/dl (31.0-35.0); Mean Corpuscular Hemoglobin 32.3 pg (27.0-33.0); Mean Corpuscular Volume 93.3 fL (80.0-98.0); Mean Platelet Volume 10.5 fL (9.4-12.3); Platelet Count 194 X10*3/uL (160-400); Red Blood Count 4.05 X10*6/uL (4.20-5.50); Red Cell Distribution Width 13.2 % (11.0-16.0); White Blood Count 4.8 X10*3/uL (4.8-10.8)
[2024-07-21 07:20] VITALS: BP 142/77; PULSE 62; RESP 18; TEMP 36.4; O2SAT 96
[2024-07-21] MEDS: Aspirin Enteric Coated 81 MG TABLET.DR PO (08:43)
[2024-07-21 08:44] VITALS: BP 142/77
[2024-07-21] MEDS: lisinopriL 20 MG TABLET PO (08:44)
[2024-07-21] MEDS: Acetaminophen 325 MG TABLET 975 MG PO ×2 (08:44→15:23)
[2024-07-21] MEDS: 0.9 % Sodium Chloride Flush 3 ML SYRINGE IVFLUSH ×2 (08:45→15:24)
[2024-07-21] MEDS: Apixaban 5 MG TABLET PO (08:45)
[2024-07-21] MEDS: Sertraline HCL 25 MG TABLET 75 MG PO (08:45)
[2024-07-21] MEDS: busPIRone HCl 10 MG TABLET PO (08:45)
--- NOTE | 2024-07-21 09:02 | HO.PM.IMPN ---
Subjective Subjective Date of Service: 07/21/24 Interval History: f/u on stroke has signficant word finding difficulty seems more pronounced today, ataxia no arrythmia on monitor Physical Exam Vital Signs: Vital Signs: Last Vital Signs Temp 97.6 F 07/21/24 07:20 Pulse 62 07/21/24 07:20 Resp 18 07/21/24 07:20 BP 142/77 H 07/21/24 08:44 Pulse Ox 96 07/21/24 07:20 O2 Del Method Room Air 07/21/24 07:20 BMI result Body Mass Index 26.6 Appearing in no acute distress lung sounds are clear to auscultation heart regular rate rhythm, clear S1, S2 positive bowel sounds, abdomen is soft, nontender neuro patient is alert x3, no focal deficits Facial droop, aphagia Objective Data Active Medications Acetaminophen (Acetaminophen 325 Mg Tablet) 975 mg PO Q6H PRN PRN Reason: Pain, Mild 1-3,fever,headache Last Admin: 07/21/24 08:44 Dose: 975 mg Documented By: VERITO Apixaban (Apixaban 5 Mg Tablet) 5 mg PO BID [facility] Last Admin: 07/21/24 08:45 Dose: 5 mg Documented By: VERITO Aspirin (Aspirin Enteric Coated 81 Mg Tablet.) 81 mg PO DAILY [facility] Last Admin: 07/21/24 08:43 Dose: 81 mg Documented By: VERITO Atorvastatin Calcium (Atorvastatin Calcium 40 Mg Tablet) 40 mg PO BEDTIME [facility] Last Admin: 07/20/24 20:13 Dose: 40 mg Documented By: COLIN Buspirone HCl (Buspirone Hcl 10 Mg Tablet) 10 mg PO BID [facility] Last Admin: 07/21/24 08:45 Dose: 10 mg Documented By: VERITO Calcium Carbonate (Calcium Carbonate 750 Mg Tab.Chew) 750 mg PO Q4H PRN PRN Reason: Heartburn Lisinopril (Lisinopril 20 Mg Tablet) 20 mg PO DAILY [facility]; Protocol Last Admin: 07/21/24 08:44 Dose: 20 mg Documented By: VERITO Lorazepam (Lorazepam 0.5 Mg Tablet) 0.5 mg PO Q8H PRN PRN Reason: anxiety Last Admin: 07/20/24 20:13 Dose: 0.5 mg Documented By: COLIN Magnesium Hydroxide (Milk Of Magnesia 30 Ml Oral.Susp) 30 ml PO DAILY PRN PRN Reason: Constipation Melatonin (Melatonin 3 Mg Tablet) 6 mg PO BEDTIME PRN PRN Reason: Insomnia Last Admin: 07/20/24 20:18 Dose: 6 mg Documented By: COLIN Morphine Sulfate (Morphine Sulfate 4 Mg/Ml Cartridge) 2 mg IVPUSH Q4H PRN; Protocol PRN Reason: Pain, Severe (Pain Scale 7-10) Ondansetron HCl (Ondansetron Hcl 4 Mg/2 Ml Vial) 4 mg IVPUSH Q8H PRN PRN Reason: Nausea and Vomiting Oxycodone HCl (Oxycodone Hcl Immed Release 5 Mg Tablet) 5 mg PO Q6H PRN PRN Reason: Pain, Moderate(Pain Scale 4-6) Sertraline HCl (Sertraline Hcl 25 Mg Tablet) 75 mg PO DAILY [facility] Last Admin: 07/21/24 08:45 Dose: 75 mg Documented By: VERITO Sodium Chloride (0.9 % Sodium Chloride Flush 3 Ml Syringe) 3 ml IVFLUSH QSHIFT [facility] Last Admin: 07/21/24 08:45 Dose: 3 ml Documented By: VERITO Labs 07/21/24 05:31 07/21/24 05:31 Labs: Laboratory Results - last 24 hr 07/21/24 05:31 MCV 93.3 MCH 32.3 MCHC 34.7 RDW 13.2 Plt Count 194 MPV 10.5 Absolute Nucleated RBC 0.000 Nucleated RBC % (auto) 0.0 Anion Gap 13 Estim Creat Clear Calc 65.1 Estimated GFR > 60 Random Glucose 106 Calcium 8.7 Microbiology Microbiology Results: Microbiology 07/18/24 19:24 Urine Culture - Final Urine clean catch - Clean Catch Midstream Assessment and Plan (1) Acute CVA (cerebrovascular accident): Status: Acute Plan 83-year-old female with a past medical history significant for HFrEF (EF 40% 04/16/2024), HTN, PVD, LVH, and recent CVA left MCA territory with a focal?hemorrhagic component in the left temporoparietal subcortical white?matter, probable embolus, M1, M2 and M3? segments, left MCA, slow flow versus thrombus, left sigmoid and transverse sinuses and left? internal jugular bulb, who presented to the ED today due to increased right-sided facial droop and aphasia. Acute CVA. Evolving symptoms head CT with infarction of the left posterior frontal lobe new from prior CT CTA head/neck unchanged, complete occlusion of the left posterior superior MCA dominant M2 segment not a candidate for TPA, outside window pt already on eliquis, ASA and high intensity statin, continue all passed bedside swallow> on ground diet for now MRI brain showing increased size of ischemia within the left MCA territory neuro> continue current tx Vascular consult for MCA occlusion PT/OT/SPORTS JOURNALIST eval Dysphagia Changed diet to ground Reconsult speech therapy Chronic HFrEF, no acute exacerbation continue home meds when appropriate HTN Lisinopril restarted for elevated BP Anxiety continue sertraline and buspirone Ativan as needed DNI VTE prophylaxis: Eliquis Patient with acute CVA frontal lobe, requiring admission for at least 2 midnights stay for cardiac monitoring and Neurology consultation. Quality Stroke Does the patient have a stroke diagnosis?: Yes Reason for No Anti-thrombotic by Day Two: Contraindicated VTE Prior VTE?: No VTE Risk Level:: Medical - moderate - high VTE Device Contraindication: Treatment Not Indicated VTE Drug Contraindication: N/A - Med Ordered
[2024-07-21 10:28] VITALS: BP 142/77; PULSE 62; O2SAT 96
[2024-07-21 11:15] VITALS: BP 155/88; PULSE 66; RESP 18; TEMP 36.4; O2SAT 100
--- NOTE | 2024-07-21 12:09 | MHC.SL.SWA ---
Speech Pathologist Impression: Moderate oropharyngeal dysphagia, Severe global aphasia Risk of Aspiration Due to:Recent stroke Dysphasia Diet Status: DOWNGRADE to NDD2/HTL Liquid Consistency and Strategies for Safe Swallow: Liquid Intake Recommendation: Honey Thick Solid Food Consistency: Dietary Recommendations: Grnd/Mech Altered (NDD2) Additional Modifications to Solid Foods: Patient presents with moderate oropharyngeal dysphagia, in the setting of new CVA with evolving symptoms. Patient w/ R-side facial droop, with some spilling from the right side of the mouth on liquids and tendency to pocket on right side. Patient contained thickened liquids better, pocketing cleared with additional bites of puree/sips of liquid. Patient at times holds food/liquid in her mouth, elicits swallow when presented with a dry teaspoon. Coughing noted on thin and nectar thick consistencies. Recommend DOWNGRADE from CHOPPED/ADVANCED (NDD3) to GROUND/MECH ALTERED (NDD2) solids and HONEY THICK liquids, pills CRUSHED in PUREE. Patient will need 1:1 assistance feeding and cues: present dry teaspoon to elicit swallow, alternate bites of food with sips of liquid to clear pocketing, check oral cavity periodically, ensure oral cavity is clear before giving more bites, liquids via teaspoon or controlled cup, avoid the use of straws, ensure upright 90 degree position during feeding, minimize distractions at meal time. D/C goal is acute rehab, patient will need continued speech services for dysphagia, as well as severe global aphasia. Impairments noted with repetition, automatic speech, word naming, following commands, and answering questions. Oral Medication Intake: Crushed with Puree Please contact the pharmacy regarding appropriate crushable or liquid drug formulations that are available whenever modified delivery is recommended. Supervision While Eating and Drinking for Safe Swallow: Total Assistance (1:1) Recommendation for Speech: Inpatient Speech Therapy Comment: Moderate oropharyngeal dysphagia & severe global aphasia, limited verbal communication Frequency/Duration: M-F Date Range for Service Req: Timeline to reassess: Printing Press Operator Apprentice Clinican/Clinical Fellow: No Supervisory Statement: I have reviewed and agree with the student/clinical fellow's documentation: N/A Speech Language Pathologist: Tresa Holm M.A., CCC-ENTRY LEVEL SOFTWARE ENGINEER
--- NOTE | 2024-07-21 14:42 | PM.DS ---
DS: Providers Provider Date of Service: 07/21/24 Date of admission: 07/18/24 21:10 Date of discharge: 07/21/24 Primary care physician: ANNETTE Dos SantosP- Consults: 07/18/24 22:05 Consult to Neurology Routine Consulting Provider: [facility] Reason for consultation: repeat CVA Has provider been notified: No 07/19/24 12:18 Consult to Vascular Surgery Routine Consulting Provider: [facility] Reason for consultation: occlusion of the left posterior superior MCA dominant M2 segment DS: Diagnosis Discharge Diagnosis (1) Acute CVA (cerebrovascular accident): Status: Acute DS: Summary Hospital Course Hospital Course: History and physical as per admitting provider. Patient is an 83-year-old female with a past medical history significant for HFrEF (EF 40% 04/16/2024), HTN, PVD, LVH, and recent CVA left MCA territory with a focal?hemorrhagic component in the left temporoparietal subcortical white?matter, probable embolus, M1, M2 and M3? segments, left MCA, slow flow versus thrombus, left sigmoid and transverse sinuses and left? internal jugular bulb, who presented to the ED today due to increased right-sided facial droop and aphasia. This was 1st noted possibly last night however worsened throughout the day and has not improved since arriving to the ED. patient's daughter states that she has been working on word retrieval and was doing well yesterday however today she was unable to cite any of the words written on the white board. She felt that her gait was shuffled however no weakness. The patient is unable to give a history. Acute CVA with Evolving symptoms. See to have stabilized today Patient was initially admitted on 07/14/2024 and at that time has been diagnosed with an acute embolic/ischemic left MCA territory stroke. She was started on Eliquis, aspirin and statin, neurologist recommended Eliquis for 3-6 months and an event monitor to be placed outpatient. She was discharged home on 07/17/2024 This hospitalization, Unfortunately patient was out of the window for tPA head CT with infarction of the left posterior frontal lobe new from prior CT CTA head/neck unchanged, complete occlusion of the left posterior superior MCA dominant M2 segment MRI brain showing increased size of ischemia within the left MCA territory Patient was already started on Eliquis, aspirin and high-intensity statin passed bedside swallow> placed on ground mechanical diet Patient does continue to have deficits including facial droop, mild ataxia and aphasia. She is able to ambulate with the assistance though. Plan is to transfer to acute rehab for intense physical therapy. neuro> continue current tx Vascular consult for MCA occlusion PT/OT/RESIDENT CARE AID eval Dysphagia Changed diet to ground, patient seemed to be doing okay with this, she needs supervision while eating Chronic HFrEF, no acute exacerbation Continue carvedilol HTN Continue lisinopril Anxiety continue sertraline and buspirone. Treated with Ativan p.r.n. during hospitalization Time Attestation Discharge Coordination Time (in mins): 45 Quality: Safe Use of Opioids Does Pt have an Active Cancer Diagnosis on the Problem List?: No Quality: Stroke Does the patient have a stroke diagnosis?: No Physical Exam Vital Signs: Vital Signs: Last Vital Signs Temp 97.5 F 07/21/24 11:15 Pulse 66 07/21/24 11:15 Resp 18 07/21/24 11:15 BP 155/88 H 07/21/24 11:15 Pulse Ox 100 07/21/24 11:15 O2 Del Method Room Air 07/21/24 11:15 BMI result Body Mass Index 26.6 Appearing in no acute distress head is normocephalic atraumatic eyes pupils are PERRLA sclera is anicteric mouth throat mucous membranes are intact and moist neck is supple no lymphadenopathy, no JVD noted lung sounds are clear to auscultation heart regular rate rhythm, clear S1, S2 positive bowel sounds, abdomen is soft, nontender neuro patient is alert x3, no focal deficits DS: Data Data Completed and Pending Labs on day of discharge: Laboratory Results - last 24 hr 07/21/24 05:31 WBC 4.8 RBC 4.05 L Hgb 13.1 Hct 37.8 MCV 93.3 MCH 32.3 MCHC 34.7 RDW 13.2 Plt Count 194 MPV 10.5 Absolute Nucleated RBC 0.000 Nucleated RBC % (auto) 0.0 Sodium 136 Potassium 3.7 Chloride 104 Carbon Dioxide 23 Anion Gap 13 BUN 13 Creatinine 0.64 Estim Creat Clear Calc 65.1 Estimated GFR > 60 Random Glucose 106 Calcium 8.7 Discharge Plan Discharge Anticipated Discharge Date/Time: 07/21/24 14:39 Patient Disposition: Xfer Inpatient Rehab Fac Discharge Diagnosis: Acute CVA Dysphagia Referrals: Vane Ladd, TEACHER VOCATIONAL TRAINING-BC [Primary Care Provider] - 1 Week Discharge Medications: Continued Eliquis 5 mg tablet 5 mg PO BID buspirone 10 mg tablet 10 mg PO BID acetaminophen [Tylenol] 325 mg Tablet 650 mg PO Q4H PRN (Reason: Pain) atorvastatin 40 mg Tablet 40 mg PO BEDTIME Qty: 90 0RF lisinopril 20 mg Tablet 20 mg PO DAILY Qty: 180 0RF Protocol: Hold for SBP< HOLD for SBP < : 90 aspirin 81 mg Tablet,Delayed Release (Dr/Ec) 81 mg PO DAILY Qty: 90 0RF (DME) Blood Pressure Cuff Misc See Rx Instructions .Route Qty: 1 1RF Rx Instructions: As directed sertraline 50 mg tablet 75 mg PO DAILY Qty: 45 1RF carvedilol [Coreg] 3.125 mg tablet 3.125 mg PO DAILY Qty: 90 0RF Rx Instructions: must administer with a meal/food Discharge Orders: Discharge Order (Routine); Ordered 07/21/24 Ordered By: Elaine Rivero Diet: Advance to usual diet Activity on Discharge: As tolerated Stand Alone Forms: Patient Portal Discharge page Print Language: Azeri Care Plan Goals: Patient will be transferred to [facility] for acute rehabilitation Health Concerns: Acute CVA Dysphagia Plan of Treatment: Follow up with primary care provider as needed Take all medications as prescribed Assessment: See discharge summary
== END 2024-07-21 17:16 | DRG 65 ==
LOC: HO.ED 21:10 → HO.EDOVER 21:19 → HO.IMC 07-19 03:54
PROVIDERS: Physician Assistant; Admitting Provider Student in an Organized Health Care Education/Training Program; Emergency Provider Emergency Medicine Emergency Medical Services; PCP Nurse Practitioner Family; Visit Provider Nurse Practitioner Acute Care
DX: I63.9 Cerebral infarction, unspecified (principal); I50.22 Chronic systolic (congestive) heart failure; R47.01 Aphasia; R29.704 NIHSS score 4; R13.10 Dysphagia, unspecified; I11.0 Hypertensive heart disease with heart failure; F41.9 Anxiety disorder, unspecified; Z79.82 Long term (current) use of aspirin; Z79.01 Long term (current) use of anticoagulants; Z79.899 Other long term (current) drug therapy
CPT/HCPCS: 36415; 70450; 70496; 70498; 70551; 80048; 80061; 81001; 82947; 84484; 85025; 85027; 85610; 85730; 87086; 92610; 93005; 97162; 97166; 99285; Q9967

== ENCOUNTER → 2024-07-18 17:00 | Outpatient (BNV) | payer MEDICARE, OTHER, SELFPAY | PROVIDERS: Emergency Provider Emergency Medicine Emergency Medical Services; PCP Nurse Practitioner Family; Visit Provider Nuclear Medicine | DX: I63.9 Cerebral infarction, unspecified (principal) | CPT/HCPCS: 70450; 70496; 70498 ==

== ENCOUNTER → 2024-07-18 17:00 | Outpatient (BNV) | payer MEDICARE, OTHER, SELFPAY | PROVIDERS: Admitting Provider Student in an Organized Health Care Education/Training Program; Emergency Provider Emergency Medicine Emergency Medical Services; PCP Nurse Practitioner Family; Visit Provider Internal Medicine Cardiovascular Disease | DX: I44.0 Atrioventricular block, first degree (principal); I51.7 Cardiomegaly; I49.1 Atrial premature depolarization | CPT/HCPCS: 93010 ==

== ENCOUNTER 2024-07-18 21:10 | Outpatient (BNV) | payer MEDICARE, OTHER, SELFPAY | END 2024-07-19 03:52 | PROVIDERS: Admitting Provider Student in an Organized Health Care Education/Training Program; Emergency Provider Emergency Medicine Emergency Medical Services; PCP Nurse Practitioner Family; Visit Provider Internal Medicine Cardiovascular Disease | DX: I44.0 Atrioventricular block, first degree (principal); I49.1 Atrial premature depolarization; I49.3 Ventricular premature depolarization; I51.7 Cardiomegaly; R00.1 Bradycardia, unspecified | CPT/HCPCS: 93010 ==

== ENCOUNTER 2024-07-18 21:10 | Outpatient (BNV) | payer MEDICARE, OTHER, SELFPAY | END 2024-07-19 12:26 | PROVIDERS: Admitting Provider Student in an Organized Health Care Education/Training Program; Emergency Provider Emergency Medicine Emergency Medical Services; PCP Nurse Practitioner Family; Visit Provider Radiology Diagnostic Radiology | DX: I63.312 Cerebral infarction due to thrombosis of left middle cerebral artery (principal) | CPT/HCPCS: 70551 ==

== ENCOUNTER → 2024-07-18 21:10 | Outpatient (BNV) | payer MEDICARE, OTHER, SELFPAY | PROVIDERS: Admitting Provider Student in an Organized Health Care Education/Training Program; Emergency Provider Emergency Medicine Emergency Medical Services; PCP Nurse Practitioner Family; Visit Provider Psychiatry & Neurology Neurology | DX: I63.312 Cerebral infarction due to thrombosis of left middle cerebral artery (principal) | CPT/HCPCS: 99222 ==

== ENCOUNTER → 2024-07-18 21:10 | Outpatient (BNV) | payer MEDICARE, OTHER, SELFPAY | PROVIDERS: Admitting Provider Student in an Organized Health Care Education/Training Program; Emergency Provider Emergency Medicine Emergency Medical Services; PCP Nurse Practitioner Family; Visit Provider Physician Assistant | DX: I63.9 Cerebral infarction, unspecified (principal) | CPT/HCPCS: 99223; 99232; 99239 ==

== ENCOUNTER → 2024-09-05 23:59 | Outpatient (BNV) | payer MEDICARE, OTHER, SELFPAY | PROVIDERS: PCP Nurse Practitioner Family; Visit Provider Family Medicine | DX: I69.320 Aphasia following cerebral infarction (principal); I50.22 Chronic systolic (congestive) heart failure | CPT/HCPCS: G0180 ==

== ENCOUNTER 2024-09-30 19:07 | Emergency (ER) | payer MEDICARE, OTHER, SELFPAY ==
--- NOTE | 2024-09-30 | ECG_ITS ---
Test Reason : FALL Blood Pressure : */* mmHG Vent. Rate : 51 BPM Atrial Rate : 51 BPM P-R Int : 208 ms QRS Dur : 116 ms QT Int : 484 ms P-R-T Axes : 54 -12 121 degrees QTcB Int : 446 ms Artifact in tracing Sinus bradycardia Left ventricular hypertrophy with QRS widening and repolarization abnormality ( R in aVL , Vick product ) Abnormal ECG When compared with ECG of 19-Jul-2024 03:52, Premature ventricular complexes are no longer Present Premature atrial complexes are no longer Present Referred By: Raghav Kearns Electronically Signed By: ARMOND ROLAND
--- NOTE | ~2024-09-30 | XR_ITS ---
CLINICAL HISTORY: fall Left humerus two views Comparison: None provided Findings: Humeral head and neck fractures noted. Recommend shoulder x-ray study. No mid or distal humeral fractures. Impression: Humeral head and neck fractures Recommend follow-up shoulder study This document has been electronically signed by: Neptali Reis MD on 09/30/2024 20:38:25
--- NOTE | ~2024-09-30 | CT_ITS ---
CLINICAL HISTORY: fall w head strike on blood thinner CT head without contrast Comparison: 07/18/2024 Findings: No intracranial mass, midline shift, hydrocephalus, or acute hemorrhage. Moderate chronic ischemic white matter disease with volume loss. Encephalomalacia developing at site of prior left MCA parietal infarct. No acute process in sinuses or mastoids. No acute bony abnormality. Impression: No acute intracranial process This document has been electronically signed by: Neptali Reis MD on 09/30/2024 20:42:02
--- NOTE | ~2024-09-30 | CT_ITS ---
CLINICAL HISTORY: fall w head strike on blood thinner CT cervical spine without contrast Comparison: None provided Findings: No acute fracture or dislocation. Moderate degenerative change. Multilevel slight anterolisthesis noted. This is most likely chronic. No radiopaque foreign bodies. Impression: No acute processes This document has been electronically signed by: Neptali Reis MD on 09/30/2024 20:40:01
[2024-09-30 19:17] VITALS: BP 132/70; BP 141/63; PULSE 52; PULSE 64; RESP 16; TEMP 36.7; O2SAT 95; O2SAT 97; BMI 26.6
[2024-09-30 19:34] VITALS: BP 141/63; PULSE 52; RESP 16; TEMP 36.7; O2SAT 95
--- NOTE | 2024-09-30 19:36 | ED.FALL ---
HPI - Fall General Chief Complaint: Fall Stated Complaint: fall w/ head strike, + thinners Time Seen by Provider: 09/30/24 19:31 Source: patient and family Mode of arrival: EMS Limitations: no limitations History of Present Illness ED Provider: HPI Narrative: Patient's history of CVA with residual right sided weakness ambulatory without any assistance, hypertension, peripheral vascular disease, HFrEF on Eliquis apparently was walking with the family in the hallway in tripped and fell comes here with left shoulder pain. No loss of consciousness no headache no neck pain fall was witnessed by her daughter who was behind the could not stop for falling patient's stumble and fell hitting the cheek bone to the floor Related Data Home Medications ?Medication ?Instructions ?Recorded ?Confirmed acetaminophen 325 mg tablet 650 mg PO Q4H PRN Pain 07/15/24 07/22/24 (Tylenol) buspirone 10 mg tablet 10 mg PO BID 07/15/24 07/22/24 apixaban 5 mg tablet (Eliquis) 5 mg PO BID 07/18/24 07/22/24 Previous Rx's ?Medication ?Instructions ?Recorded miscellaneous medical supply #1 ea 04/11/24 (Blood Pressure Cuff) carvedilol 3.125 mg tablet (Coreg) 3.125 mg PO DAILY #90 tabs 06/27/24 aspirin 81 mg tablet,delayed 81 mg PO DAILY #90 tabs 07/17/24 release atorvastatin 40 mg tablet 40 mg PO BEDTIME #90 tabs 07/17/24 lisinopril 20 mg tablet 20 mg PO DAILY #180 tabs 07/17/24 sertraline 50 mg tablet 75 mg (1.5 x 50 mg) PO DAILY #45 07/24/24 tabs Allergies Allergy/AdvReac Type Severity Reaction Status Date / Time clonidine AdvReac HTN Verified 09/30/24 19:25 Review of Systems Review of Systems: Yes all other systems are reviewed and are negative PMF Past Medical History Medical History CVA (cerebral vascular accident) ROLF (generalized anxiety disorder) HTN (hypertension) LVH (left ventricular hypertrophy) CHF (congestive heart failure) Skin cancer Anxiety Surgical History Mammogram declined (~2024) Colon cancer screening declined (~2024) No pertinent past surgical history Family History Family History Sister Mental health disorder Cancer Parkinson disease Hypertension Paternal Grandmother Mental health disorder Brother Mental health disorder Cancer Parkinson disease Hypertension Cardiovascular disease Sister Cancer Father Hypertension Cardiovascular disease Mother Cardiovascular disease Son Diabetes Maternal Grandmother Diabetes Social History Social History Household Members: None Housing: House Are you a primary direct support professional caregiver to a significant other at home: No Do you presently have visiting nurse or other home services: No Alcohol intake: current Alcohol intake frequency: a few times a week Patient Tobacco Use Status: Never used Tobacco Smoked in Last 30 Days: No e-Cigarette/Vaping Use: Never Used Second Hand Smoke Exposure: No Use of substances other than those prescribed or required for medical reasons: No Advance Directives: Yes Advance Directives on File: Yes Advance Directives Date on File: 07/22/24 Do you have a plan to hurt others: No Plan service: No Current occupational status: retired Cognitive needs: No Hearing needs: No Vision needs: No Physical Exam Vital Signs: Vital Signs: Last Vital Signs Temp 97.8 F 09/30/24 22:18 Pulse 47 L 09/30/24 22:18 Resp 16 09/30/24 22:18 BP 128/70 09/30/24 22:18 Pulse Ox 95 09/30/24 22:18 O2 Del Method Room Air 09/30/24 22:18 BMI result Body Mass Index 26.6 Appearance: Alert. Oriented X3. No acute distress. Eyes: PERRLA, No Nystagmus ENT: Pharynx normal. Oral Mucosa moist Neck: Normal inspection. Neck supple. CVS: Normal heart rate and rhythm. Pulses normal. Respiratory: No respiratory distress. Equal air entry bilateral, no wheezing/rales/rhonchi Abdomen: Soft and nontender. Bowel sounds are present, no mass palpable, no CVA tenderness Skin: Skin warm and dry. Normal skin color. Normal skin turgor. Extremities: No lower extremity edema. No calf tenderness left upper extremity tender at the upper end with obvious deformity suggestive of fracture neurovascular intact Neuro: Oriented X 3. No motor deficit. No sensory deficit.No cerebellar signs , cranial nerves II-XII intact Medications Administered Discontinued Medications Generic Name Dose Route Start Last Admin Trade Name Freq PRN Reason Stop Dose Admin Oxycodone HCl 5 mg 09/30/24 21:29 09/30/24 22:10 Oxycodone Hcl Immed Release 5 Mg Tablet PO 09/30/24 21:30 5 mg ONCE ONE Administration Medical Decision Making Medical Decision Making [facility] Narrative: Patient is status post mechanical fall witnessed by the family comes here with left arm pain x-ray showed left humerus apparent fracture head CT cervical spine negative patient. Vitals are stable sling and swath was given for left humerus fracture patient is ambulatory in the ED will discharge patient home advised to follow with Orthopedics Differential Diagnosis Differential Diagnoses: The differential diagnosis associated with the presentation includes Cervical fracture/subdural hematoma//ICH Independent Interpretation I performed an independent interpretation of an: Plain X-Ray Radiology Impression Discussion of test interpretation with radiology: I have reviewed the radiologist's reading. Discharge Plan Discharge Clinical Impression: Closed left humeral fracture Patient Disposition: Xfer [facility] Instructions: Arm Fracture in Adults (ED) Additional Instructions: Came to the left arm in sling Tylenol for Pain medicine as prescribed Follow up with Orthopedics Prescriptions: No Action sertraline 50 mg tablet 75 mg PO DAILY Qty: 45 1RF Eliquis 5 mg tablet 5 mg PO BID buspirone 10 mg tablet 10 mg PO BID acetaminophen [Tylenol] 325 mg Tablet 650 mg PO Q4H PRN (Reason: Pain) atorvastatin 40 mg Tablet 40 mg PO BEDTIME Qty: 90 0RF lisinopril 20 mg Tablet 20 mg PO DAILY Qty: 180 0RF Protocol: Hold for SBP< HOLD for SBP < : 90 aspirin 81 mg Tablet,Delayed Release (Dr/Ec) 81 mg PO DAILY Qty: 90 0RF (DME) Blood Pressure Cuff Misc See Rx Instructions .Route Qty: 1 1RF Rx Instructions: As directed carvedilol [Coreg] 3.125 mg tablet 3.125 mg PO DAILY Qty: 90 0RF Rx Instructions: must administer with a meal/food Referrals: Chapin Higgins MD [Physician, Orthopedics] Referral Note: Left humerus fracture Interventions: ED Discharge Assessment Last Done: 09/30/24 22:18 Discharge Date/Time: 09/30/24 22:19 Print Language: Panamanian
[2024-09-30 22:07] VITALS: BP 128/70; PULSE 47; RESP 16; TEMP 36.6; O2SAT 95
[2024-09-30] MEDS: oxyCODONE HCl Immed Release 5 MG TABLET PO (22:10)
[2024-09-30 22:18] VITALS: BP 128/70; PULSE 47; RESP 16; TEMP 36.6; O2SAT 95
== END 2024-09-30 22:19 ==
PROVIDERS: Emergency Provider Internal Medicine; PCP Internal Medicine
DX: S42.302A Unspecified fracture of shaft of humerus, left arm, initial encounter for closed fracture (principal); M25.512 Pain in left shoulder; I10 Essential (primary) hypertension; I73.9 Peripheral vascular disease, unspecified; Z79.01 Long term (current) use of anticoagulants; Z86.73 Personal history of transient ischemic attack (TIA), and cerebral infarction without residual deficits; W01.0XXA Fall on same level from slipping, tripping and stumbling without subsequent striking against object, initial encounter; Y93.9 Activity, unspecified; Y92.9 Unspecified place or not applicable; Y99.9 Unspecified external cause status
CPT/HCPCS: 70450; 72125; 73060; 93005; 99284; 99285

== ENCOUNTER → 2024-09-30 19:22 | Outpatient (BNV) | payer MEDICARE, OTHER, SELFPAY | PROVIDERS: Emergency Provider Internal Medicine; PCP Internal Medicine; Visit Provider Radiology Diagnostic Radiology | DX: M43.12 Spondylolisthesis, cervical region (principal); S09.90XA Unspecified injury of head, initial encounter; S42.212A Unspecified displaced fracture of surgical neck of left humerus, initial encounter for closed fracture | CPT/HCPCS: 70450; 72125; 73060 ==

== ENCOUNTER → 2024-09-30 19:48 | Outpatient (BNV) | payer MEDICARE, OTHER, SELFPAY | PROVIDERS: Emergency Provider Internal Medicine; PCP Internal Medicine; Visit Provider Internal Medicine | DX: I51.7 Cardiomegaly (principal); R00.1 Bradycardia, unspecified | CPT/HCPCS: 93010 ==

== ENCOUNTER 2024-10-02 08:54 | Inpatient (IN) | payer MEDICARE, OTHER, SELFPAY ==
--- NOTE | ~2024-10-02 | CT_ITS ---
EXAMINATION: CT HEAD WITHOUT IV CONTRAST STROKE HISTORY: Stroke Protocol. TECHNIQUE: Unenhanced helical CT of the head was performed per standard departmental protocol. Coronal and sagittal reformats of the head were also evaluated. One or more of the following techniques was used for dose reduction: Automated exposure control, adjustment of the mA and/or kV according to patient size, use of iterative reconstruction technique. DLP: 704 mGy-cm COMPARISON: Comparison is made with the prior examination dated 09/30/2024. FINDINGS: BRAIN: There is diffuse prominence of the ventricular system and cortical sulci, consistent with atrophy. Periventricular and subcortical white matter hypodensities are noted which are nonspecific, but often seen in the setting of small vessel ischemic disease. Again seen is encephalomalacia in the left MCA territory, consistent with an old infarct. There is no mass effect or midline shift. No intra- or extra-axial fluid collections are identified. SINUSES: The visualized paranasal sinuses are clear. The mastoid air cells and middle ear cavities are well pneumatized. ORBITS: The visualized orbits are unremarkable. BONES/SOFT TISSUES: The extracranial soft tissues are unremarkable. The calvarium is intact. No suspicious lytic or sclerotic lesions. CT/CT head for STROKE IMPRESSION: No acute intracranial abnormality. Findings were discussed with Layla Florence in the emergency room on 10/02/2024 at 10:37 AM. Electronically signed by: Refugio Bowen MD 10/02/2024 10:35 AM EDT
--- NOTE | ~2024-10-02 | XR_ITS ---
EXAMINATION: XR HAND 3 OR MORE VIEWS RIGHT HISTORY: fall pain COMPARISON: There are no prior studies available for comparison. FINDINGS: Three views of the right hand are submitted. Osseous mineralization is normal. There is no fracture or dislocation. There is moderate osteoarthritis of the DIP joints, the PIP joint of the index finger, and the interphalangeal joint of the thumb. There is mild change of the 1st carpometacarpal joint. The soft tissues are unremarkable. XR/XR hand RT min 3V IMPRESSION: No evidence of fracture of the right hand. Electronically signed by: Refugio Bowen MD 10/02/2024 12:13 PM EDT
--- NOTE | ~2024-10-02 | CT_ITS ---
EXAMINATION: CT CHEST WITH CONTRAST CLINICAL INFORMATION: Unwitnessed fall, trauma COMPARISON: None available. TECHNIQUE: Multidetector volumetric CT imaging of the chest was obtained after the administration of 65 mL of Omnipaque 350 intravenous contrast without immediate adverse reactions. Axial MIP volume rendering provided. Sagittal and coronal reformatted images were obtained. This CT examination was performed using dose optimization techniques as appropriate, variously including the following: *Automated exposure control *Adjustment of mA and/or kV according to patient size (this includes techniques or standardized protocols for targeted exams where dose is matched to indication/reason for exam; i.e. extremities or head) *Use of iterative reconstruction technique FINDINGS: LUNGS: Lungs are well expanded bilaterally. There is no pneumothorax or pleural effusion. There is gravity dependent minor atelectasis present. No consolidation or abnormal groundglass opacity. No evidence of contusion. Mild mosaic attenuation is likely secondary to partial expiratory state/air trapping. Small airways appear normal. No significant thickening. Central airways are patent. No suspicious pulmonary nodules are present. MEDIASTINUM: There is moderate cardiomegaly present. There is left ventricular chamber dilatation. There is heavy coronary calcification present. No pericardial effusion. The main pulmonary artery is enlarged, measuring diameter of 3.9 cm, consistent with pulmonary arterial hypertension. The aorta is normal in caliber and mildly tortuous and course. There is mild atheromatous calcification. There is a normal great vessel branching pattern. Great vessels are patent. No mediastinal lymphadenopathy or mass. The esophagus is normal in appearance. There are tiny nodules in the thyroid gland which is incompletely imaged. PLEURA: There is no pleural effusion. No pleural mass or thickening. AXILLA/CHEST WALL: No mass or lymphadenopathy. There is an acute comminuted left humeral head fracture. There are contusive injuries to the left pectoralis muscles, left deltoid muscle, left teres major muscle and the rotator cuff musculature. Incidentally noted with associated joint effusion/hemarthrosis. UPPER ABDOMEN: Refer to the dedicated CT abdomen and pelvis report. OSSEOUS STRUCTURES: Comminuted left humeral head fracture with mild impaction and displacement. The scapula appears intact. The acromion appears intact. The clavicle appears intact. The left ribs appear intact. The right ribs appear intact. Vertebral column appears intact. The sternum and manubrium appear intact. CT/CT chest w IV con IMPRESSION: 1. Lungs are clear without definite active disease. No contusion or consolidation. No pneumothorax. 2. Cardiomegaly, with notable LV dilatation and heavy coronary calcification. 3. The main pulmonary artery is enlarged suggesting pulmonary arterial hypertension. 4. Comminuted fracture of the left humeral head with mild impaction and displacement. 5. Associated strain injuries of the left pectoralis muscles, left deltoid muscle, and left rotator cuff musculature. Electronically signed by: Efren Lu MD 10/02/2024 11:38 AM EDT
--- NOTE | ~2024-10-02 | XR_ITS ---
EXAMINATION: XR HUMERUS, LEFT CLINICAL INFORMATION: fall hx of recent fx worse COMPARISON: September 30, 2024. TECHNIQUE: AP and lateral views of the left humerus. FINDINGS: Comminuted fractures at the humeral head/neck. No callus formation. No periosteal bone reaction. No lytic or blastic lesions. XR/XR humerus LT IMPRESSION: No healing comminuted possibly impacted fracture humeral head and neck. Electronically signed by: Loi Pina MD 10/02/2024 12:16 PM EDT
--- NOTE | ~2024-10-02 | CT_ITS ---
EXAMINATION: CT ANGIOGRAM HEAD AND NECK CLINICAL INFORMATION: Stroke protocol. COMPARISON: Noncontrast head CT dated earlier same day. CT angiogram head and neck 07/18/2024. MR brain 07/19/2024. TECHNIQUE: CTA head and neck performed by test bolus sequences with subsequent intravenous bolus administration 85 mL of Omnipaque 350. Helical imaging was performed in the axial plane from the aortic arch to the skull vertex. The data was processed at the computer engineering technologist's workstation for generation of MIP sequences. Angled MIPs and volume rendered reformatted images were also generated at an offline 3D workstation. Stenoses are assessed in accordance with NASCET criteria unless otherwise indicated. This CT examination was performed using dose optimization techniques as appropriate, variously including the following: *Automated exposure control *Adjustment of mA and/or kV according to patient size (this includes techniques or standardized protocols for targeted exams where dose is matched to indication/reason for exam; i.e. extremities or head) *Use of iterative reconstruction technique FINDINGS: NECK CTA: -AORTIC ARCH: Normal in caliber. Mild atheromatous calcification. Three-vessel branching pattern. -GREAT VESSEL ORIGINS: Widely patent. No stenosis. -RIGHT COMMON CAROTID ARTERY: Normal in course and caliber to the level of the bifurcation. -CERVICAL RIGHT INTERNAL CAROTID ARTERY: Calcific atherosclerotic disease of the carotid bulb and proximal internal carotid artery causing approximately 20% stenosis. -LEFT COMMON CAROTID ARTERY: Normal in course and caliber to the level of the bifurcation. -CERVICAL LEFT INTERNAL CAROTID ARTERY: Calcific atherosclerotic disease of the carotid bulb and proximal internal carotid artery causing approximately 30% stenosis. -CERVICAL RIGHT VERTEBRAL ARTERY: Codominant. Normal in course and caliber into the skull base. -CERVICAL LEFT VERTEBRAL ARTERY: Codominant. Normal in course and caliber into the skull base. OTHER, SOFT TISSUES: -No lymphadenopathy or mass. No abnormal fluid collection or soft tissue swelling. -Thyroid is mildly irregular without dominant nodule. -Imaged superior mediastinal structures normal. -Imaged lung apices clear. CTA OF THE BRAIN: -INTRACRANIAL INTERNAL CAROTID ARTERIES: Calcific atherosclerotic disease of the intracranial internal carotid arteries without occlusion or flow-limiting stenosis. -RIGHT ANTERIOR CEREBRAL ARTERY: Normal A1 segment. Normal arborization of the distal segments. -LEFT ANTERIOR CEREBRAL ARTERY: Normal A1 segment.. Normal arborization of the distal segments. -ANTERIOR COMMUNICATING ARTERY: Normal. -RIGHT MIDDLE CEREBRAL ARTERY: Normal M1 segment of the MCA without focal stenosis or occlusion. Normal arborization of the distal segments. -LEFT MIDDLE CEREBRAL ARTERY: Normal M1 segment of the MCA without focal stenosis or occlusion. Occlusion inferior division M2 segment (series 503, image 106). Normal arborization of the distal superior division segments. -RIGHT VERTEBRAL ARTERY V4: Normal in course and caliber. Normal PICA branch. -LEFT VERTEBRAL ARTERY V4: Normal in course and caliber. There is a left AICA/PICA. -BASILAR ARTERY: Normal without focal stenosis or occlusion. Normal appearance of the proximal superior cerebellar arteries. Normal basilar tip. -RIGHT POSTERIOR CEREBRAL ARTERY: Normal P1 segment. Evidence of atheromatous disease with mild irregularity of the more distal vessels. There is a moderate stenosis at the P2 P3 junction (series 503, image 95; series 15, image 88). -LEFT POSTERIOR CEREBRAL ARTERY: Normal P1 segment. Evidence of atheromatous disease of mild irregularity of the more distal vessels. -POSTERIOR COMMUNICATING ARTERIES: Normal opacification of the superior sagittal, straight, transverse, and sigmoid sinuses. No venous thrombosis. No space-occupying hemorrhage or definite evolving infarct. Stable encephalomalacia of the inferior division left MCA territory. CT/CT angio head neck STROKE IMPRESSION: CTA NECK: 1. Approximately 20% stenosis of the right ICA at the origin due to mixed plaque. 2. Approximately 30% stenosis of the left ICA at the origin due to mixed plaque. 3. No significant vertebral artery stenosis bilaterally. Vertebral arteries are codominant. CTA HEAD: 1. Stable occlusion of the inferior division of the left MCA bifurcation (M2 segment). No new intracranial arterial occlusion, hemodynamically significant stenosis, aneurysm or dissection. 2. Moderate stenosis at the right CAR BRACER P2/P3 junction identified. 4. Encephalomalacia in left superior division MCA territory, unchanged. 5. No evolving subacute infarct or space-occupying hemorrhage. Electronically signed by: Efren Lu MD 10/02/2024 11:21 AM EDT
--- NOTE | ~2024-10-02 | CT_ITS ---
EXAMINATION: CT CERVICAL SPINE WITHOUT IV CONTRAST HISTORY: fall. TECHNIQUE: Helical CT of the cervical spine was performed per standard departmental protocol. Coronal and sagittal reformatted images were also evaluated. One or more of the following techniques was used for dose reduction: Automated exposure control, adjustment of the mA and/or kV according to patient size, use of iterative reconstruction technique. DLP: 370 mGy-cm COMPARISON: Comparison is made with the prior examination dated 09/30/2024. FINDINGS: CERVICAL SPINE: The vertebral bodies maintain normal height and alignment without evidence of fracture or subluxation. There is moderate degenerative disc disease at the C5-6 and C6-7 levels, with disc space narrowing and osteophyte formation. Evaluation for disc pathology is limited by lack of intrathecal contrast material, however. BRAIN: The visualized portion of the brain is unremarkable. SINUSES: The visualized paranasal sinuses, mastoid air cells and middle ear cavities are unremarkable. LUNG APICES: The visualized lung apices are clear. SOFT TISSUES: There is calcification of the internal carotid arteries. CT/CT cervical spine wo IV con IMPRESSION: No evidence of fracture or malalignment of the cervical spine. Electronically signed by: Refugio Bowen MD 10/02/2024 11:31 AM EDT
--- NOTE | ~2024-10-02 | CT_ITS ---
CLINICAL HISTORY: [facility] CT angiography abdomen and pelvis with contrast. 3-D post processing. Comparison: CT/REG/SR - CT GI BLEED ABD PEL WO/W IVCON - 10/03/24 18:59 EDT Findings: Aortic atherosclerosis. No aneurysm. No acute aortic findings. Cardiomegaly. Trace pericardial effusion. Mild dependent atelectasis. Few calcified granulomas in the liver. Vicarious excretion of contrast in the gallbladder. Atrophic pancreas. Spleen and adrenal glands are within normal limits. No hydronephrosis. Symmetric contrast enhancement of the kidneys. Colonic diverticulosis without acute inflammation. No evidence of active gastrointestinal bleeding. No bowel obstruction, pneumatosis or pneumoperitoneum. Pelvic contents unremarkable. Scoliosis. Degenerative changes of the spine. No acute osseous findings. IMPRESSION: 1. No acute intraabdominal or pelvic pathology. 2. No evidence of active gastrointestinal bleeding. This document has been electronically signed by: Maritza Mccollum MD on 10/04/2024 17:09:21
--- NOTE | ~2024-10-02 | CT_ITS ---
CLINICAL HISTORY: rectal bleeding CT abdomen and pelvis without/with contrast Comparison: 10/02/2024 Findings: No angiographic arterial phase images submitted. Minimal hyperdense material inferior aspect of rectum noncontrasted study. This is not present on the pre contrasted images. This may represent focal area of hemorrhage. No other extravascular contrast is identified. Lung bases are clear. No acute bony abnormalities. Degenerative change throughout visualized spine. Degenerative change in the hip joints. Liver and spleen within normal limits. Pancreas and adrenal glands unremarkable. Gallbladder contrast excretion noted. No significant focal renal abnormalities. No renal stones or hydronephrosis. Aorta normal caliber without dissection. No free fluid or adenopathy in the pelvis. No diverticulitis. Appendix unremarkable. Uterus normal size. No adnexal abnormality. Impression: Probable minimal hemorrhage inferior aspect of rectum This document has been electronically signed by: Neptali Reis MD on 10/03/2024 19:55:25
--- NOTE | ~2024-10-02 | CT_ITS ---
EXAMINATION: CT ABDOMEN PELVIS WITH IV CONTRAST HISTORY: unwitnessed fall on ground COMPARISON: There are no prior studies for available comparison. TECHNIQUE: CT scan of the abdomen and pelvis was performed following administration of 85 mL Omnipaque 350 using standard departmental protocol. Coronal and sagittal reformatted images were generated and reviewed. Oral contrast material was not administered at the request of the referring physician. This CT exam was performed with one or more of the following dose reduction techniques: automated exposure control, adjustment of the mA and/or kV according to patient size, use of iterative reconstruction technique. DLP: 706 mGy-cm FINDINGS: LOWER CHEST: There is mild dependent atelectasis at the lung bases. There is no pleural effusion. CARDIOVASCULATURE: The heart is enlarged. There is no pericardial effusion. LIVER: The liver is normal in size and contour. No liver mass is identified. The hepatic and portal veins are patent. GALLBLADDER / BILE DUCTS: The gallbladder is unremarkable. There is no intra or extrahepatic biliary ductal dilatation. SPLEEN: The spleen is normal in size. No focal splenic lesion is identified. PANCREAS: The pancreas is unremarkable in appearance. ADRENAL GLANDS: Within normal limits. KIDNEYS/RETROPERITONEUM: There is excreted contrast material in the bilateral renal collecting systems, limiting evaluation for calculi. There is no hydronephrosis. No renal masses are identified. LYMPH NODES: No abdominal or pelvic lymphadenopathy. VASCULATURE: The abdominal aorta demonstrates atherosclerotic calcification, but is normal in caliber. MESENTERY/PERITONEUM: No free fluid. No masses. There is no free intraperitoneal gas. STOMACH: The stomach is collapsed, limiting evaluation. SMALL BOWEL: The small bowel is normal in caliber. COLON: There is a moderate to large amount of stool throughout the colon. APPENDIX: Normal. URINARY BLADDER/PELVIC ORGANS: The urinary bladder is unremarkable. The uterus is unremarkable. BONES / SOFT TISSUES: There is degenerative disc disease and levoscoliosis of the spine. CT/CT abdomen pelvis w IV con IMPRESSION: No evidence of traumatic injury to the abdomen or pelvis. Incidental findings as discussed above. Electronically signed by: Refugio Bowen MD 10/02/2024 11:37 AM EDT
[2024-10-02 08:59] VITALS: BP 150/78; BP 171/63; PULSE 60; PULSE 62; RESP 16; TEMP 36.7; O2SAT 100; O2SAT 96; BMI 21.8
[2024-10-02 09:11] VITALS: BP 171/63; PULSE 60; RESP 16; TEMP 36.7; O2SAT 96
--- NOTE | 2024-10-02 09:44 | ED_ITS ---
HPI - Fall General Chief Complaint: Fall Stated Complaint: FOUND THIS AM/FALL OUT OF BED,SYLVAIN RECENT FALLS Time Seen by Provider: 10/02/24 09:09 Source: patient, family, EMS, RN notes reviewed and old records reviewed Mode of arrival: EMS Limitations: physical limitation and other (speech aphasia) History of Present Illness ED Provider: Layla Florence PA-C HPI Narrative: 10:00 patient was seen at bedside. 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 Patient lives at [facility]. She does not use any assistive devices to ambulate. She had a fall a week ago which resulted in a left humeral fracture. Her daughter who is bedside and employed by [employer] reports that her speech is significantly worse now and she was doing speech speech therapy and actually was able to have coherent sentences which is now not present. Due to patient having a known humeral fracture and having her arm in a left sling it is uncertain whether or not patient is experiencing any paresthesias or weakness in the limb but she does move her fingers slightly on exam but otherwise no arm movement. Patient is not a good historian according to both family that is present. Due to her history of her CVA in May this past year she has been on Eliquis. Goals of care were discussed with the daughters in in regards to patient's DNR status they would want intervention if there was a brain bleed. They discussed this for a few minutes before reinitiating calling a code stroke. Patient endorses pain in her left shoulder and went to slightly with me pushing on her chest but otherwise is not able to articulate if she has any or other pain. She is in bed and arrived via EMS in a C-collar. Family reports that [facility] [employer] told him this morning upon leaving with EMS that they do not believe it is appropriate for her to go back to [facility] given that she needs a higher level of care as she keeps on having recurrent falls. Patient was found on the ground next to her bed this morning awake by on [facility] staff last known wellness being when she went to bed last night time uncertain. Not able to know if this was a fall out of bed vs fall with transferring or syncope or stroke resulting in fall. 1145: CTA without any new findings, CT cervical spine no acute fractures or findings. C collared removed. Will trial lidocaine patch on left shoulder for pain. Related Data Home Medications ?Medication ?Instructions ?Recorded ?Confirmed buspirone 10 mg tablet 10 mg PO BID 07/15/24 apixaban 5 mg tablet (Eliquis) 5 mg PO BID 07/18/24 acetaminophen 500 mg tablet 500 mg PO BID 10/03/2410/20 (Acetaminophen Extra Strength) amlodipine 2.5 mg tablet 2.5 mg PO DAILY 10/03/2410/20 carvedilol 3.125 mg tablet (Coreg) 3.125 mg PO BID 10/2010/03/24 ergocalciferol (vitamin D2) 1,250 1,250 mcg PO FR 10/2010/03/24 mcg (50,000 unit) capsule (Vitamin D2) lisinopril 20 mg tablet 20 mg PO BID 10/03/24 Previous Rx's ?Medication ?Instructions ?Recorded miscellaneous medical supply #1 ea 04/11/24 (Blood Pressure Cuff) aspirin 81 mg tablet,delayed 81 mg PO DAILY #90 tabs 0 07/17/24 release atorvastatin 40 mg tablet 40 mg PO BEDTIME #90 tabs sertraline 50 mg tablet 75 mg (1.5 x 50 mg) PO DAILY #45 07/24/24 tabs Allergies Allergy/AdvReac Type Severity Reaction Status Date / Time clonidine AdvReac HTN Verified 10/02/24 09:01 Review of Systems 2 Review of Systems: Yes all other systems are reviewed and are negative [facility] Past Medical History Medical History CVA (cerebral vascular accident) ROLF (generalized anxiety disorder) HTN (hypertension) LVH (left ventricular hypertrophy) CHF (congestive heart failure) Skin cancer Anxiety Surgical History Mammogram declined (~2024) Colon cancer screening declined (~2024) No pertinent past surgical history Family History Family History Sister Mental health disorder Cancer Parkinson disease Hypertension Paternal Grandmother Mental health disorder Brother Mental health disorder Cancer Parkinson disease Hypertension Cardiovascular disease Sister Cancer Father Hypertension Cardiovascular disease Mother Cardiovascular disease Son Diabetes Maternal Grandmother Diabetes Social History Social History Household Members: None Both parents involved: No Caregiver staying overnight: No Housing: House Are you a primary physician assistant primary care to a significant other at home: No Do you presently have visiting nurse or other home services: No 75 years or older and lives alone: No Alcohol intake: current Alcohol intake frequency: a few times a week Patient Tobacco Use Status: Never used Tobacco e-Cigarette/Vaping Use: Never Used Second Hand Smoke Exposure: No Advance Directives Date on File: 07/22/24 service: No Current occupational status: retired Cognitive needs: No Hearing needs: No Vision needs: No Physical Exam 2 Vital Signs: Vital Signs: Last Vital Signs Temp 97.8 F 10/06/24 19:05 Pulse 75 10/06/24 19:05 Resp 16 10/06/24 19:05 BP 155/70 H 10/06/24 19:05 Pulse Ox 96 10/06/24 19:05 O2 Del Method Room Air 10/06/24 19:05 BMI result Body Mass Index 21.8 HEENT: Other: Head in CT collar Head: Yes normal to inspection, Yes No palpable skull fracture present, Yes normocephalic and Yes other (no raccoon eyes or rehman sign, no anthony sign, right side of lip down slop) Ears: hearing grossly normal bilaterally, external ears normal and TM's normal bilaterally General nose exam: Normal external nose present and Normal nasal mucous membranes and turbinates present Face and sinus: Yes normal facial exam Mouth: Normal oral and palatal mucosa present, lip normal, tongue normal, oropharynx normal and moist mucous membranes Throat: Yes posterior oropharynx normal and Yes uvula midline Eyes: General: appearance normal, both eyes and all related structures P eriorbital: periorbital findings normal Eyelids: Yes eyelids normal C onjunctivae: conjunctivae normal Sclerae: sclerae normal Corneas: corneas normal Pupils: Equal, round and reactive pupils present EOM: EOMs intact bilaterally Neck: Neck: Yes normal visual inspection, Yes full ROM and Yes no lymphadenopathy Chest: Chest palpation & inspection: normal inspection of the chest and normal palpation of entire chest wall Resp: Effort & Inspection: normal respiratory effort and able to speak in complete sentences (cannot access, but no distress) Auscultation: clear to auscultation bilaterally Cardio: Jugular venous distension: no JVD Rate: regular rate Rhythm: r egular rhythm Peripheral pulses: Peripheral pulses 2+ throughout GI: Inspection: Yes normal to inspection Palpation (GI): Soft to palpation and Other GI palpation findings present (nontender) Auscultation: normal bowel sounds Rectal Exam - Female: visual inspection normal, normal sphincter tone and other (no BRBPR, no fecal impaction) Skin: General skin exam: no rashes or lesions noted, elasticity normal and turgor normal Trauma: no lacerations or abrasions Wounds: no wounds Neuro: Cranial nerves: Yes Equal, round and reactive pupils present Extrem: Other: full skin exposed during primary and secondary trauma survey General: Yes normal to inspection and Yes capillary refill normal NIH Stroke Scale Internal: Initial- Upon Arrival Time: 10:00 Level of Consciousness: Alert Level of Consciousness Questions: Answers both questions correctly (unable to assess) Level of Consciousness Commands: Performs both tasks correctly (unable to fully assess) Best Gaze: Normal Visual: No visual loss Facial Palsy: Minor paralyis (let sided base line vs slightly worse per family) Motor Arm (Right): No drift Motor Arm (Left): No movement (known humerus fracture, but barely moves left hand when asking to squeeze, does not move arm) Motor Leg (Right): No drift Motor Leg (Left): No drift Limb Ataxia: Absent Sensory: Normal (shakes head yes) Best Language: Mild to moderate aphasia Dysarthia: Severe dysarthria Extinction and Inattention: No abnormality (unable to assess) Score: 8 Course Reevaluation(s) Reevaluation #1: Physician observation continued. Uneventful night. Vital signs stable. No complaints from nursing overnight. Med reconciliation reviewed and done. Pending med reconciliation disposition. Will continue to monitor. Time: 08:04 Reevaluation #2: I was called over to overflow and nurse reported that patient had a large amount of bright red blood per rectum it was all over the floor. Repeat CBC shows a slight drop in H&H. GI bleeding steady ordered at this time. I suspect patient will be admitted. Sign out given to Efren Stevenson Reevaluation #3: 10:09 PM 10/03/2024 (Marizol PUCKETT): The patient was signed out to this provider at shift change. In summary the patient is an 83-year-old female who lives at a SNF who was seen initially on 10/02 for multiple falls with weakness. Patient has a history of aphasia from previous stroke in his unable to provide reliable HPI, is anticoagulated on Eliquis. The patient's initial work up was nondiagnostic other than a comminuted fracture of the left humeral head/neck. The patient was placed in case management/overflow for STR placement. Today however the patient's RN reported a large episode of hematochezia and notified the daytime PA who re-evaluated with repeat laboratory workup and repeat CT abdomen and pelvis. The patient has been hemodynamically stable. The patient's repeat blood counts dropped only minimally and do not require transfusion, however they were admittedly drawn only 1 hour after the episode of hematochezia. The patient's repeat CT was pending interpretation when the patient was signed out to me. CT has resulted and shows probable minimal hemorrhage in the inferior aspect of the rectum. The patient's Eliquis order has been held and we will admit the patient in the setting of lower GI bleed with weakness and falls. Medications Administered Generic Name Dose Route Start Last Admin Trade Name Freq PRN Reason Stop Dose Admin Acetaminophen 650 mg 10/02/24 15:07 10/03/24 21:04 Acetaminophen 325 Mg Tablet PO 650 mg Q6H PRN Administration mild pain Amlodipine Besylate 2.5 mg 10/03/24 09:00 10/03/24 10:02 Amlodipine Besylate 2.5 Mg Tablet PO 2.5 mg On Hold: 10/04/24 07:41 DAILY MARYBETH Administration Protocol Atorvastatin Calcium 40 mg 10/02/24 19:00 10/06/24 09:08 Atorvastatin Calcium 40 Mg Tablet PO 40 mg DAILY MARYBETH Administration Buspirone HCl 10 mg 10/02/24 21:00 10/06/24 08:21 Buspirone Hcl 10 Mg Tablet PO 10 mg BID MARYBETH Administration Carvedilol 3.125 mg 10/02/24 21:00 10/06/24 09:08 Carvedilol 3.125 Mg Tablet PO 3.125 mg BID MARYBETH Administration Protocol Diazepam 2.5 mg 10/06/24 16:27 10/06/24 16:35 Diazepam 10 Mg/2 Ml Cartridge IVPUSH 2.5 mg BID PRN Administration anxiety Lidocaine 1 patch 10/02/24 15:07 10/05/24 20:00 Lidocaine 4 % Patch Adh..Patch TRANSDERMA 1 patch Q12H PRN Administration pain left shoulder Protocol Lidocaine 1 patch 10/05/24 09:00 10/06/24 08:20 Lidocaine 4 % Patch Adh..Patch TRANSDERMA 1 patch DAILY MARYBETH Administration Protocol Lisinopril 20 mg 10/02/24 21:00 10/03/24 21:11 Lisinopril 20 Mg Tablet PO 20 mg On Hold: 10/04/24 07:41 BID MARYBETH Administration Protocol Melatonin 6 mg 10/03/24 22:20 10/05/24 20:00 Melatonin 3 Mg Tablet PO 6 mg BEDTIME PRN Administration Insomnia Omeprazole 20 mg 10/06/24 16:30 10/06/24 16:11 Omeprazole 20 Mg Capsule.Dr PO Not Given BID@0630,1630 MARYBETH Sertraline HCl 75 mg 10/03/24 09:00 10/06/24 09:08 Sertraline Hcl 25 Mg Tablet PO 75 mg DAILY MARYBETH Administration Sodium Chloride 3 ml 10/04/24 00:00 10/06/24 16:12 0.9 % Sodium Chloride Flush 3 Ml Syringe IVFLUSH 3 ml QSHIFT MARYBETH Administration Discontinued Medications Generic Name Dose Route Start Last Admin Trade Name Ravinderq PRN Reason Stop Dose Admin Acetaminophen 975 mg 10/02/24 12:14 10/02/24 12:26 Acetaminophen 325 Mg Tablet PO 10/02/24 12:15 975 mg ONCE ONE Administration Apixaban 5 mg 10/02/24 21:00 10/03/24 08:01 Apixaban 5 Mg Tablet PO 5 mg BID MARYBETH Administration Aspirin 81 mg 10/03/24 09:00 10/03/24 08:22 Aspirin 81 Mg Tab.Chew PO Not Given DAILY MARYBETH Sodium Chloride 1,000 mls @ 999 mls/hr 10/02/24 10:00 10/02/24 11:39 Ns IV 10/02/24 11:00 Infused .Q1H1M MARYBETH Infusion Lactated Ringer's 1,000 mls @ 100 mls/hr 10/03/24 22:30 10/04/24 08:49 Lr IVCONT 10/04/24 08:29 Infused .Q10H MARYBETH Infusion Potassium Chloride 10 meq in 100 mls @ 100 mls/hr 10/04/24 12:15 10/04/24 15:50 Potassium Chloride/H20 IV 10/04/24 14:14 Infused Q1H MARYBETH Infusion Lactated Ringer's 1,000 mls @ 80 mls/hr 10/04/24 15:15 10/05/24 11:22 Lr IVCONT Infused .[id number] MARYBETH Infusion Acetaminophen 1,000 mg in 100 mls @ 400 mls/hr 10/04/24 15:11 10/04/24 16:47 Ofirmev IV 10/04/24 15:25 Infused ONCE ONE Infusion Prothrombin Complex Concent ( 80 mls @ 480 mls/hr 10/04/24 16:30 10/04/24 17:06 Human) 2,000 unit/ IV IV 10/04/24 16:39 Infused Miscellaneous Supplies .Q10M ONE Infusion Phytonadione 10 mg/ Sodium 51 mls @ 51 mls/hr 10/04/24 21:30 10/04/24 23:11 Chloride IV 10/04/24 22:29 Infused ONCE ONE Infusion Acetaminophen 1,000 mg in 100 mls @ 400 mls/hr 10/05/24 07:45 10/06/24 08:47 Ofirmev IV Infused Q6H MARYBETH Infusion Potassium Chloride 10 meq in 100 mls @ 100 mls/hr 10/05/24 08:45 10/05/24 14:20 Potassium Chloride/H20 IV 10/05/24 12:44 Infused Q1H MARYBETH Infusion Iohexol 100 ml 10/02/24 10:36 10/02/24 10:37 Iohexol 350 Mg/Ml 100 Ml Infus..Btl IV 10/02/24 10:37 85 ml ONCE ONE Administration Iohexol 100 ml 10/03/24 19:37 10/03/24 19:37 Iohexol 350 Mg/Ml 100 Ml Infus..Btl IV 10/03/24 19:38 85 ml ONCE ONE Administration Iohexol 100 ml 10/04/24 15:42 10/04/24 15:42 Iohexol 350 Mg/Ml 100 Ml Infus..Btl IV 10/04/24 15:43 85 ml ONCE ONE Administration Lidocaine 1 patch 10/02/24 11:47 10/02/24 12:26 Lidocaine 4 % Patch Adh..Patch TRANSDERMA 10/02/24 11:48 1 patch ONCE ONE Administration Protocol Lorazepam 1 mg 10/06/24 08:48 10/06/24 08:54 Lorazepam 1 Mg Tablet PO 1 mg BID PRN Administration Anxiety Melatonin 6 mg 10/03/24 20:16 10/03/24 21:05 Melatonin 3 Mg Tablet PO 10/03/24 20:17 6 mg ONCE ONE Administration Olanzapine 2.5 mg 10/02/24 19:36 10/02/24 19:44 Olanzapine 2.5 Mg Tablet PO 10/02/24 19:37 2.5 mg ONCE ONE Administration Pantoprazole Sodium 80 mg 10/03/24 22:21 10/03/24 23:34 Pantoprazole Sodium 40 Mg/10 Ml Vial IVPUSH 10/03/24 22:22 80 mg ONCE ONE Administration Pantoprazole Sodium 40 mg 10/04/24 07:45 10/06/24 05:35 Pantoprazole Sodium 40 Mg/10 Ml Vial IVPUSH 40 mg BID@0630,1630 MARYBETH Administration Tamsulosin HCl 0.4 mg 10/05/24 21:00 10/05/24 20:00 Tamsulosin Hcl 0.4 Mg Capsule PO 0.4 mg BEDTIME MARYBETH Administration Medical Decision Making Medical Decision Making MDM Narrative: Code stroke called at 1005 NIH scale 8 but limited assessment due to trauma of LUE known humerus fx and worsening swelling; trauma scans ordered as well due to unknown downtime/ unwitnessed fall. Last known well 'last evening'. She is on Eliquis. 1035: Head CT noncon with no acute findings, CTA with no acute changes, CTA without acute findings. Fall not determined to be due to new stroke. CT of cervical spine with no fracture, C collar removed. Xrays of left humerus without worsening changes of known left humeral head/neck fracture. Remains NVI. Right hand xray neg. Trauma scans of chest abd and pelvis also without acute findings. It not felt patient had a stroke at this point. Likely fall out of bed. I have expressed goals of care with both of her daughters who are present who would like to still continue with trying to improve the mother's quality of life. Given her recurrent falls as well as her known humeral fracture and [facility] not feeling that patient can be safe there as she would require a higher level of care have offered a PT/Cm consulted to determine the patient's level of necessity for improvement and ADLs. Discussed pain control with the family being on a narcotic would cause patient to be constipated and therefore lead to other adverse side effects of the medicine we will trial Tylenol as well as a lidocaine patch Consults have been placed. Anemia on labs discussed wtih patient's healthcare proxy which is also her daughter. No obvious bleed (no external bleeding, negative trauma scans and no BRBPR, would be considered for transfusion. Known anemic and as she is asx, no transfusion has been ordered after shared decision making with family to defer this intervention. 1450: Patient was re-evaluated at bedside and reported significant improvement of pain nodding her head yes to feeling better. Her neuro exam remains the same with global aphasia noted but does seem to be moving her hands slightly better this is not felt to be a TIA but rather from better pain control. PT assess patient have recommended a short-term rehab transfer. Case management will work on this. At this point patient was placed into physician observation. 1500: Time: 14:59 Date: 10/02/24 Provider: Layla Florence PA-C Patient in physician observation for case management needs. PT assessment done. fPatient is pending placement at facility pending CM eval. Will continue to monitor. MOLST is on file. CODE status updated to DNI/DNR. Med list received. Standing pain order for tylenol and lidocaine patches placed. 1937: Notify patient has owning we will give 2.5 mg of Zyprexa p.o. and reevaluate for efficacy. Case was signed out to demarco Schwartz pending STR and CM needs. Differential Diagnosis Differential Diagnoses: The differential diagnosis associated with the presentation includes See [facility] Admission/Observation Consideration of admission/observation: Escalation of care including admission/observation considered Consult Healthcare Provider Management of the patient was discussed with: [employer] Assistant Lab Data [facility] Lab Attestation statement: I reviewed the patient's lab results. 10/06/24 08:27 10/06/24 08:27 Labs: Lab Results 10/02/24 10/02/24 10/02/24 Range/Units 10:07 10:08 10:11 WBC 7.7 (4.8-10.8) X10*3/uL RBC 2.86 L D (4.20-5.50) X10*6/uL Hgb 9.3 L D (12.0-16.0) g/dl Hct 26.6 L D (37.0-47.0) % MCV 93.0 (80.0-98.0) fL MCH 32.5 (27.0-33.0) pg MCHC 35.0 (31.0-35.0) g/dl RDW 13.6 (11.0-16.0) % Plt Count 193 (160-400) X10*3/uL MPV 10.2 (9.4-12.3) fL Immature Gran % (Auto) 0.3 (0.0-0.4) % Neut % (Auto) 84.2 H (45-73) % Lymph % (Auto) 5.5 L (20-40) % [place] % (Auto) 9.2 (2-11) % Eos % (Auto) 0.5 (0-4) % Baso % (Auto) 0.3 (0-2) % Lymph # (Auto) 0.4 L (1.2-4.9) X10*3/uL [place] # (Auto) 0.7 (0.1-1.2) X10*3/uL Eos # (Auto) 0.0 (0.0-0.4) X10*3/uL Baso # (Auto) 0.0 (0.0-0.2) X10*3/uL Abs Immat Gran (auto) 0.02 (0.00-0.03) X10*3/uL Absolute Neuts (auto) 6.5 (2.0-8.3) x10*3/uL Absolute Nucleated RBC 0.000 (0.0-0.012) X10*3/uL Nucleated RBC % (auto) 0.0 (0.0-0.2) /100WBC PT 15.6 H D (10.9-12.4) SEC Whole Blood PT 14.3 H (11.1-13.5) sec INR 1.4 H (0.9-1.1) Whole Blood INR 1.2 H (0.9-1.1) APTT 27.7 (26.7-34.1) SEC Sodium (135-145) mmol/L Potassium (3.3-5.1) mmol/L Chloride (96-108) mmol/L Carbon Dioxide (22-29) mmol/L Anion Gap (12-20) BUN (9-16) mg/dL Creatinine (0.5-1.4) mg/dL Estim Creat Clear Calc Estimated GFR POC Glucose 125 H (60-115) mg/dL Random Glucose (60-115) mg/dL Calcium (8.4-10.2) mg/dL Total Bilirubin (0.0-1.0) mg/dL AST (5-31) U/L ALT (0-31) U/L Alkaline Phosphatase (39-117) U/L Troponin I High Sens 8.2 (<3.5-17.0) ng/L Total Protein (6.5-8.0) g/dL Albumin (3.5-5.0) g/dL Triglycerides (<150) mg/dL Cholesterol (<200) mg/dL LDL Cholesterol, Calc (<100) mg/dL HDL Cholesterol (>40) mg/dL Urine Color Urine Appearance Urine pH (5.0-9.0) Ur Specific [place] (1.005-1.025) Urine Protein (Neg-Trace) mg/dL Urine Glucose (UA) (Negative) mg/dL Urine Ketones (Negative) mg/dL Urine Blood (Negative) Urine Nitrite (Negative) Ur Leukocyte Esterase (Negative) Urine RBC (0-2) /HPF Urine WBC (0-5) /HPF Ur Squamous Epith Cells (0-2) /HPF Urine Bacteria (None Seen) Hyaline Casts (0-2) /LPF Stool Occult Blood (NEGATIVE) Blood Type Antibody Screen Crossmatch 10/02/24 10/02/24 10/03/24 Range/Units 11:08 14:23 16:31 WBC 6.5 (4.8-10.8) X10*3/uL RBC 2.80 L (4.20-5.50) X10*6/uL Hgb 9.2 L (12.0-16.0) g/dl Hct 26.1 L (37.0-47.0) % MCV 93.2 (80.0-98.0) fL MCH 32.9 (27.0-33.0) pg MCHC 35.2 H (31.0-35.0) g/dl RDW 13.8 (11.0-16.0) % Plt Count 208 (160-400) X10*3/uL MPV 10.3 (9.4-12.3) fL Immature Gran % (Auto) 0.6 H (0.0-0.4) % Neut % (Auto) 73.7 H (45-73) % Lymph % (Auto) 9.1 L (20-40) % [place] % (Auto) 14.4 H (2-11) % Eos % (Auto) 1.7 (0-4) % Baso % (Auto) 0.5 (0-2) % Lymph # (Auto) 0.6 L (1.2-4.9) X10*3/uL [place] # (Auto) 0.9 (0.1-1.2) X10*3/uL Eos # (Auto) 0.1 (0.0-0.4) X10*3/uL Baso # (Auto) 0.0 (0.0-0.2) X10*3/uL Abs Immat Gran (auto) 0.04 H (0.00-0.03) X10*3/uL Absolute Neuts (auto) 4.8 (2.0-8.3) x10*3/uL Absolute Nucleated RBC 0.000 (0.0-0.012) X10*3/uL Nucleated RBC % (auto) 0.0 (0.0-0.2) /100WBC PT (10.9-12.4) SEC Whole Blood PT (11.1-13.5) sec INR (0.9-1.1) Whole Blood INR (0.9-1.1) APTT (26.7-34.1) SEC Sodium 135 139 (135-145) mmol/L Potassium 3.6 3.4 (3.3-5.1) mmol/L Chloride 102 102 (96-108) mmol/L Carbon Dioxide 26 26 (22-29) mmol/L Anion Gap 11 L 14 (12-20) BUN 9 11 (9-16) mg/dL Creatinine 0.55 0.60 (0.5-1.4) mg/dL Estim Creat Clear Calc 76.7 70.3 Estimated GFR > 60 > 60 POC Glucose (60-115) mg/dL Random Glucose 120 H 111 (60-115) mg/dL Calcium 8.0 L D 8.6 D (8.4-10.2) mg/dL Total Bilirubin 0.7 (0.0-1.0) mg/dL AST 35 H (5-31) U/L ALT 22 (0-31) U/L Alkaline Phosphatase 115 (39-117) U/L Troponin I High Sens (<3.5-17.0) ng/L Total Protein 6.5 (6.5-8.0) g/dL Albumin 3.7 (3.5-5.0) g/dL Triglycerides 68 (<150) mg/dL Cholesterol 136 (<200) mg/dL LDL Cholesterol, Calc 72 (<100) mg/dL HDL Cholesterol 51 (>40) mg/dL Urine Color Yellow Urine Appearance Clear Urine pH 6.5 (5.0-9.0) Ur Specific [place] >= 1.030 H (1.005-1.025) Urine Protein Negative (Neg-Trace) mg/dL Urine Glucose (UA) Negative (Negative) mg/dL Urine Ketones Trace (Negative) mg/dL Urine Blood Moderate (2+) H (Negative) Urine Nitrite Negative (Negative) Ur Leukocyte Esterase Trace H (Negative) Urine RBC 3-5 H (0-2) /HPF Urine WBC 0-5 (0-5) /HPF Ur Squamous Epith Cells 0-2 (0-2) /HPF Urine Bacteria None Seen (None Seen) Hyaline Casts 0-2 (0-2) /LPF Stool Occult Blood (NEGATIVE) Blood Type AB Negative Antibody Screen NEGATIVE Crossmatch See Detail 10/03/24 Range/Units 16:53 WBC (4.8-10.8) X10*3/uL RBC (4.20-5.50) X10*6/uL Hgb (12.0-16.0) g/dl Hct (37.0-47.0) % MCV (80.0-98.0) fL MCH (27.0-33.0) pg MCHC (31.0-35.0) g/dl RDW (11.0-16.0) % Plt Count (160-400) X10*3/uL MPV (9.4-12.3) fL Immature Gran % (Auto) (0.0-0.4) % Neut % (Auto) (45-73) % Lymph % (Auto) (20-40) % [place] % (Auto) (2-11) % Eos % (Auto) (0-4) % Baso % (Auto) (0-2) % Lymph # (Auto) (1.2-4.9) X10*3/uL [place] # (Auto) (0.1-1.2) X10*3/uL Eos # (Auto) (0.0-0.4) X10*3/uL Baso # (Auto) (0.0-0.2) X10*3/uL Abs Immat Gran (auto) (0.00-0.03) X10*3/uL Absolute Neuts (auto) (2.0-8.3) x10*3/uL Absolute Nucleated RBC (0.0-0.012) X10*3/uL Nucleated RBC % (auto) (0.0-0.2) /100WBC PT (10.9-12.4) SEC Whole Blood PT (11.1-13.5) sec INR (0.9-1.1) Whole Blood INR (0.9-1.1) APTT (26.7-34.1) SEC Sodium (135-145) mmol/L Potassium (3.3-5.1) mmol/L Chloride (96-108) mmol/L Carbon Dioxide (22-29) mmol/L Anion Gap (12-20) BUN (9-16) mg/dL Creatinine (0.5-1.4) mg/dL Estim Creat Clear Calc Estimated GFR POC Glucose (60-115) mg/dL Random Glucose (60-115) mg/dL Calcium (8.4-10.2) mg/dL Total Bilirubin (0.0-1.0) mg/dL AST (5-31) U/L ALT (0-31) U/L Alkaline Phosphatase (39-117) U/L Troponin I High Sens (<3.5-17.0) ng/L Total Protein (6.5-8.0) g/dL Albumin (3.5-5.0) g/dL Triglycerides (<150) mg/dL Cholesterol (<200) mg/dL LDL Cholesterol, Calc (<100) mg/dL HDL Cholesterol (>40) mg/dL Urine Color Urine Appearance Urine pH (5.0-9.0) Ur Specific [place] (1.005-1.025) Urine Protein (Neg-Trace) mg/dL Urine Glucose (UA) (Negative) mg/dL Urine Ketones (Negative) mg/dL Urine Blood (Negative) Urine Nitrite (Negative) Ur Leukocyte Esterase (Negative) Urine RBC (0-2) /HPF Urine WBC (0-5) /HPF Ur Squamous Epith Cells (0-2) /HPF Urine Bacteria (None Seen) Hyaline Casts (0-2) /LPF Stool Occult Blood POSITIVE (NEGATIVE) Blood Type Antibody Screen Crossmatch Independent Interpretation I performed an independent interpretation of an: EKG and CT Scan Interpretation: NO ICH, no acute ischemic findings. Radiology Impression Discussion of test interpretation with radiology: I have reviewed the radiologist's reading. Radiologist Impression: No acute trauma of head, neck chest of abd/pelvis. No changes stable fracture left proximal humerus. Independent Historian Clinical information obtained from an independent historian. History obtained from or confirmed by: Other (daughters) Chronic Conditions Patient?s care impacted by: Other Social Determinants Patient?s care significantly limited by Social Determinants of Health including: Other Social Determinant of Health Discharge Plan Discharge Clinical Impression: Acute lower GI hemorrhage, Weakness, Falls Patient Disposition: Admitted As Inpatient Interventions: Admission Worksheet (ED) Last Done: 10/04/24 01:56 Discharge Date/Time: 10/04/24 03:45
--- NOTE | 2024-10-02 10:00 | ECG_ITS ---
Test Reason : STROKE Blood Pressure : */* mmHG Vent. Rate : 57 BPM Atrial Rate : 57 BPM P-R Int : 186 ms QRS Dur : 114 ms QT Int : 460 ms P-R-T Axes : 99 6 150 degrees QTcB Int : 447 ms Sinus bradycardia Minimal voltage criteria for LVH, may be normal variant ( [place] product ) Nonspecific ST and T wave abnormality Abnormal ECG When compared with ECG of 30-Sep-2024 19:48, No significant change was found Referred By: Layla Florence Electronically Signed By: ARMOND ROLAND
[2024-10-02 10:12] LABS: Prothrombin Time Whole Bld POC 14.3 sec (11.1-13.5); ~PT, ~INR - Anti Coag Clinic 1.2 (0.9-1.1)
[2024-10-02 10:14] LABS: Glucose, Whole Blood 125 mg/dL (60-115)
[2024-10-02 10:21] LABS: MANUAL DIFF FLAG NO
[2024-10-02 10:24] LABS: Hematocrit 26.6 % (37.0-47.0); Hemoglobin 9.3 g/dl (12.0-16.0); Imm Gran Abs Auto 0.02 X10*3/uL (0.00-0.03); Imm Gran Pct Auto 0.3 % (0.0-0.4); Lymphocytes Absolute Auto 0.4 X10*3/uL (1.2-4.9); Mean Corpuscular HGB Conc 35.0 g/dl (31.0-35.0); Mean Corpuscular Hemoglobin 32.5 pg (27.0-33.0); Mean Corpuscular Volume 93.0 fL (80.0-98.0); NRBC Abs Auto 0.000 X10*3/uL (0.0-0.012); NRBC Pct Auto 0.0 /100WBC (0.0-0.2); Platelet Count 193 X10*3/uL (160-400); Red Blood Count 2.86 X10*6/uL (4.20-5.50); White Blood Count 7.7 X10*3/uL (4.8-10.8)
[2024-10-02 10:28] LABS: INTERNATIONAL NORM RATIO 1.4 (0.9-1.1); Prothrombin Time 15.6 SEC (10.9-12.4)
[2024-10-02 10:30] LABS: Partial Thromboplastin Time 27.7 SEC (26.7-34.1)
[2024-10-02 10:31] LABS: Stroke Lab Use COMPLETE
--- NOTE | 2024-10-02 10:33 | MHC.STROKE ---
1000 - Notified by provider that patient made a stroke alert. Went to bed 19 to see patient - pt was in CT scan. Spoke with patient's daughters. According to patient's daughters, patient has been living at [facility]. Daughter states she fell and fractured her shoulder recently - pt arrived to ED in sling According to the assisted living facility, patient has had multiple falls since then and fell again this morning. In speaking with the daughters, the provider made the decision to activate a stroke CT secondary to the falls and the patient being on Eliquis. The daughters report that they want aggressive treatment if workup is positive. Daughter Leni reported that patient's speech seemed to have worsened slightly. States she hasn't been eating and drinking as well since the fall with fx. Patient is well known to us as she has recently been admitted for CVA x 2. Will continue to assist the ED team as needed. Daughters updated on plan of care and they're agreeable to current plan.
[2024-10-02] MEDS: iohexoL 350 MG/ML 100 ML INFUS..BTL IV (10:37)
[2024-10-02 10:44] VITALS: BP 173/67; PULSE 61; RESP 14; TEMP 36.7; O2SAT 97
[2024-10-02 10:49] LABS: Troponin-I High Sensitivity 8.2 ng/L (<3.5-17.0)
[2024-10-02 11:35] LABS: Anion Gap 11 (12-20); Blood Urea Nitrogen 9 mg/dL (9-16); Calcium 8.0 mg/dL (8.4-10.2); Carbon Dioxide 26 mmol/L (22-29); Chloride 102 mmol/L (96-108); Cholesterol 136 mg/dL (<200); Creatinine Clr Calc Pharmacy 76.7; Estimated Glomerular Filt Rate > 60; HDL Cholesterol 51 mg/dL (>40); Potassium 3.6 mmol/L (3.3-5.1); Sodium 135 mmol/L (135-145); Triglycerides 68 mg/dL (<150)
[2024-10-02] MEDS: Lidocaine 4 % Patch ADH..PATCH 1 PATCH TRANSDERMA (12:26)
--- NOTE | 2024-10-02 14:16 | MHC.CM.PN ---
CM consult received. This CM met with pt and her two daughters/HCP's present at bedside. Pt resides at [facility] and presents to the ED after a fall. PT evaluated pt and are recommending rehab. Per pts daughters their first choice is [facility] (acute rehab) and [facility] ([facility]). Referrals placed in careport, awaiting bed offer.
[2024-10-02 14:29] LABS: Appearance Urine Clear; Glucose Urine UA Negative (Negative); PH 6.5 (5.0-9.0); Specific Gravity - Urine >= 1.030 (1.005-1.025); UMIC TRIGGER UACC YES
--- NOTE | 2024-10-02 19:41 | PC.NURSE ---
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 She does not use any assistive devices to ambulate. She had a fall a week ago which resulted in a left humeral fracture. Her daughter who is bedside and employed by [employer] reports that her speech is significantly worse now and she was doing speech speech therapy and actually was able to have coherent sentences which is now not present. Due to her history of her CVA in May this past year she has been on Eliquis. Code stroke was initiated. Family reports that [facility] told him this morning upon leaving with EMS that they do not believe it is appropriate for her to go back to [facility] given that she needs a higher level of care as she keeps on having recurrent falls. Patient was found on the ground next to her bed this morning awake by on [facility] uncertain when. CTA obtained with no additional changes. Patient alert but impulsive. Sl facial droop noted with expressive aphasia which is baseline. Respirations even and non-labored. Abdomen soft, non-tender with positive bowel sounds. Able to turn and pivot to the commode with assistance. Positive pedal pulses with no edema. Sling intact to left arm with good CSM noted. Original Note: Medical History CVA (cerebral vascular accident) ROLF (generalized anxiety disorder) HTN (hypertension) LVH (left ventricular hypertrophy) CHF (congestive heart failure) Skin cancer Anxiety
--- NOTE | 2024-10-02 20:23 | MHC.CM.ED ---
CM met with patient as family wanted to meet with CM. [facility] is still reviewing and asked for a med sheet and the PT evaluation. I uploaded both in [facility]. PT is recommending Acute rehab. Pt was at [facility] after her stroke in May. Pt is essentially non-verbal and her speech is unclear. Her family seems to know what she is saying. She does nod to yes or no questions. Family tells CM that they expect patient to return to [facility] after rehab. HCP/MOLST and POA are on file. Pt has Medicare and [employer] insurance. Is STR is needed, families first choice is [facility]. Daughter asked if a family member can stay with patient for communication concerns. Primary RN aware. 1 family member will remain with patient.
[2024-10-02 21:25] VITALS: BP 143/63; PULSE 65; RESP 18; TEMP 37.2; O2SAT 96
--- NOTE | 2024-10-03 00:59 | PC.NURSE ---
Assumed care of pt at approximately 2310. Daughter Leni at bedside. no complaint at this time. Daughter declined any need for assist of care. 0005 daughter Leni stating she thinks her presence may be keeping pt awake. Just repositioned to R-side but couldn't get the bed alarm on. T/w put bed alarm on, put bed on lowest position to the floor and side rail by feet up on R-side of bed, warm blanket provided. Leni left phone number to call [phone] if staff need any assistance as pt is difficult to understand d/t aphasia. 0100 pt observed facing the left side of bed and adjusting pillow. T/w adjuste pillow and blankets and removed R-foot side rail, left- foot side-rail now in place. Pt denied need to use bathroom at this time. Call chapman within reach. Plan of care on going.
--- NOTE | 2024-10-03 05:01 | PC.NURSE ---
PT AGITATED, YELLING, HARD TO REDIRECT. AWARE. [facility] ORDERED.
[2024-10-03 05:58] VITALS: BP 136/83; PULSE 80; RESP 20; TEMP 37.6; O2SAT 99
[2024-10-03 07:35] VITALS: BP 120/67; PULSE 58; RESP 16; TEMP 37.4; O2SAT 99
[2024-10-03] MEDS: Lidocaine 4 % Patch ADH..PATCH 1 PATCH TRANSDERMA (08:34)
--- NOTE | 2024-10-03 09:15 | PC.NURSE ---
Addendum entered by Emily Kim RN 10/03/24 09:38: *sling is located on patient left shoulder Original Note: assumed care of patient at 0700, patient is awake and alert, daughter at bedside. patient has hx of cva, has related aphasia post cva. patient having difficulty word finding, daughter states it worsens when she is tired, states patient has not slept in 3 days. patient is sitting in recliner with chair alarm. patient has sling on right arm, patient denied pain but grimaces with movement of extremity. patient sling adjusted for comfort. patient eating breakfast tray, sitting up in recliner with daughters at bedside. patient noted to be fidgeting with items, given small bear off of the comfort cart provided by [employer], patient playing with bear. VSS at this time, resp even and unlabored, no signs of current distress. medicated per APR.
--- NOTE | 2024-10-03 10:07 | MHC.CM.PN ---
Addendum entered by Alexia Cook 10/03/24 13:14: Pt has been declined by all 3 local acute rehabs. STR bed search expanded. Multiple STR bed offers received and reviewed with pts daughters, they are having a family discussion about their options as they aren't pleased with the options available. Pts daughter asked this CM to ask [facility] if they can pay privately for her to go there, awaiting response in [facility]. Original Note: Pt remains in ED overflow, awaiting STR or acute rehab bed offer. Referrals reviewed, pt was declined by [facility], still in review with [facility]. Acute rehab referral expanded to add [facility], awaiting bed offer.
--- NOTE | 2024-10-03 12:04 | PHA.MEDREC ---
Addendum entered by Henry Teresa PharmD 10/03/24 12:09: reviewed Original Note: Pharmacy Consult ? Medication Reconciliation Pharmacy has completed the medication reconciliation. Utilized list from [facility] in [place]; list printed 09/18/2024 and I called to get an up to date list from them but had to leave a voice-mail on nursing phone line, will update if we get a new list and there are any new meds or changes.
[2024-10-03 14:00] VITALS: BP 136/74; PULSE 70; RESP 16; TEMP 36.9; O2SAT 99
--- NOTE | 2024-10-03 16:00 | PC.NURSE ---
Pt family alerted RN to pt's sudden bowel movement. Upon standing up from bed, pt had a large amount of dark red and tarry stool. PA aware and brought to bedside. Pt being transferred to ED18 for further management.
[2024-10-03 16:34] LABS: MANUAL DIFF FLAG NO
[2024-10-03 16:37] LABS: Hematocrit 26.1 % (37.0-47.0); Hemoglobin 9.2 g/dl (12.0-16.0); Imm Gran Abs Auto 0.04 X10*3/uL (0.00-0.03); Imm Gran Pct Auto 0.6 % (0.0-0.4); Lymphocytes Absolute Auto 0.6 X10*3/uL (1.2-4.9); Mean Corpuscular HGB Conc 35.2 g/dl (31.0-35.0); Mean Corpuscular Hemoglobin 32.9 pg (27.0-33.0); Mean Corpuscular Volume 93.2 fL (80.0-98.0); NRBC Abs Auto 0.000 X10*3/uL (0.0-0.012); NRBC Pct Auto 0.0 /100WBC (0.0-0.2); Platelet Count 208 X10*3/uL (160-400); Red Blood Count 2.80 X10*6/uL (4.20-5.50); White Blood Count 6.5 X10*3/uL (4.8-10.8)
[2024-10-03 16:57] LABS: Alanine Aminotransferase 22 U/L (0-31); Albumin Level 3.7 g/dL (3.5-5.0); Alkaline Phosphatase 115 U/L (39-117); Anion Gap 14 (12-20); Aspartate Amino Transferase 35 U/L (5-31); Blood Urea Nitrogen 11 mg/dL (9-16); Calcium 8.6 mg/dL (8.4-10.2); Carbon Dioxide 26 mmol/L (22-29); Chloride 102 mmol/L (96-108); Creatinine Clr Calc Pharmacy 70.3; Estimated Glomerular Filt Rate > 60; Potassium 3.4 mmol/L (3.3-5.1); Sodium 139 mmol/L (135-145); Total Protein 6.5 g/dL (6.5-8.0)
[2024-10-03 17:04] LABS: OBS Int Ctl Valid YES; OBS1 POSITIVE (NEGATIVE)
[2024-10-03] MEDS: iohexoL 350 MG/ML 100 ML INFUS..BTL IV (19:37)
--- NOTE | 2024-10-03 20:00 | MHC.EDTECH ---
@19:45 the patient's family use the call chapman, for assistance putting the patient on the bed aldana, per family request the patient as placed with a pure wick. The patient was repositioned and boosted. Call chapman place within arms reach
--- NOTE | 2024-10-03 21:10 | MHC.CM.ED ---
Addendum entered by Makenzie Diez 10/03/24 21:56: Per Efren PUCKETT, patient will be admitted. Original Note: Pt having medical work-up for GI bleeding.
[2024-10-03 21:11] VITALS: BP 152/68; PULSE 68
--- NOTE | 2024-10-03 22:21 | PM.IMHP ---
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 Patient developed loose stools with large amount of hematochezia and hospital medicine team consulted on 10/03 for admission. Patient is on Eliquis and aspirin for recent embolic CVA. Patient is aphasic and unable to provide any history. History obtained with the help of ER provider and son at bedside. The son is concerned about recent GI bleed and multiple falls at [facility]. Unable to obtain review of systems. Stool occult positive for blood. Review of Systems Review of Systems: Yes Unobtainable due to mental condition [facility] Medical History CVA (cerebral vascular accident) ROLF (generalized anxiety disorder) HTN (hypertension) LVH (left ventricular hypertrophy) CHF (congestive heart failure) Skin cancer Anxiety Family History Sister Mental health disorder Cancer Parkinson disease Hypertension Paternal Grandmother Mental health disorder Brother Mental health disorder Cancer Parkinson disease Hypertension Cardiovascular disease Sister Cancer Father Hypertension Cardiovascular disease Mother Cardiovascular disease Son Diabetes Maternal Grandmother Diabetes Surgical History Mammogram declined (~2024) Colon cancer screening declined (~2024) No pertinent past surgical history Social History Household Members: None Housing: House Are you a primary child care group leader to a significant other at home: No Do you presently have visiting nurse or other home services: No Alcohol intake: current Alcohol intake frequency: a few times a week Patient Tobacco Use Status: Never used Tobacco Smoked in Last 30 Days: No e-Cigarette/Vaping Use: Never Used Second Hand Smoke Exposure: No Use of substances other than those prescribed or required for medical reasons: No Advance Directives: Yes Advance Directives on File: Yes Advance Directives Date on File: 07/22/24 Do you have a plan to hurt others: No Plan service: No Current occupational status: retired Cognitive needs: No Hearing needs: No Vision needs: No Meds Allergies Allergy/AdvReac Type Severity Reaction Status Date / Time clonidine AdvReac HTN Verified 10/02/24 09:01 Active Medications: Current Medications Acetaminophen (Acetaminophen 325 Mg Tablet) 650 mg PO Q6H PRN PRN Reason: mild pain Last Admin: 10/03/24 21:04 Dose: 650 mg Amlodipine Besylate (Amlodipine Besylate 2.5 Mg Tablet) 2.5 mg PO DAILY [facility]; Protocol Last Admin: 10/03/24 10:02 Dose: 2.5 mg Atorvastatin Calcium (Atorvastatin Calcium 40 Mg Tablet) 40 mg PO DAILY [facility] Last Admin: 10/03/24 08:00 Dose: 40 mg Buspirone HCl (Buspirone Hcl 10 Mg Tablet) 10 mg PO BID [facility] Last Admin: 10/03/24 21:04 Dose: 10 mg Carvedilol (Carvedilol 3.125 Mg Tablet) 3.125 mg PO BID [facility]; Protocol Last Admin: 10/03/24 21:11 Dose: 3.125 mg Lidocaine (Lidocaine 4 % Patch Adh..Patch) 1 patch TRANSDERMA Q12H PRN; Protocol PRN Reason: pain left shoulder Last Admin: 10/03/24 08:34 Dose: 1 patch Lisinopril (Lisinopril 20 Mg Tablet) 20 mg PO BID [facility]; Protocol Last Admin: 10/03/24 21:11 Dose: 20 mg Sertraline HCl (Sertraline Hcl 25 Mg Tablet) 75 mg PO DAILY [facility] Last Admin: 10/03/24 08:01 Dose: 75 mg Home Medications ?Medication ?Instructions ?Recorded ?Confirmed ?Last Taken ?Type buspirone 10 mg tablet 10 mg PO BID 07/15/24 10/03/24 07/18/24 History apixaban 5 mg tablet (Eliquis) 5 mg PO BID 07/18/24 10/03/24 07/18/24 History acetaminophen 500 mg tablet 500 mg PO BID 10/03/24 10/03/24 Unknown History (Acetaminophen Extra Strength) amlodipine 2.5 mg tablet 2.5 mg PO DAILY 10/03/24 10/03/24 Unknown History carvedilol 3.125 mg tablet (Coreg) 3.125 mg PO BID 10/03/24 10/03/24 Unknown History ergocalciferol (vitamin D2) 1,250 1,250 mcg PO FR 10/03/24 10/03/24 Unknown History mcg (50,000 unit) capsule (Vitamin D2) lisinopril 20 mg tablet 20 mg PO BID 10/03/24 10/03/24 Unknown History Physical Exam Vital Signs and Narrative: Vital Signs: Last Vital Signs Temp 98.4 F 10/03/24 14:00 Pulse 68 10/03/24 21:11 Resp 16 10/03/24 14:00 BP 152/68 H 10/03/24 21:11 Pulse Ox 99 10/03/24 14:00 O2 Del Method Room Air 10/03/24 14:00 BMI result Body Mass Index 21.8 Const: Other: Elderly female lying in bed in no distress Neck supple, no JVD Regular rate and rhythm, S1-S2 heard Regular breath sounds bilaterally, no wheezing or crackles appreciated Abdomen soft nontender, no guarding, no rigidity Patient is awake, alert and aphasic, unable to assess orientation Psych: Normal mood No pedal edema Results Labs 10/03/24 16:31 10/03/24 16:31 Labs: Laboratory Results - last 24 hr 10/03/24 10/03/24 16:31 16:53 MCV 93.2 MCH 32.9 MCHC 35.2 H RDW 13.8 Plt Count 208 MPV 10.3 Immature Gran % (Auto) 0.6 H Neut % (Auto) 73.7 H Lymph % (Auto) 9.1 L Vernon % (Auto) 14.4 H Eos % (Auto) 1.7 Baso % (Auto) 0.5 Lymph # (Auto) 0.6 L Vernon # (Auto) 0.9 Eos # (Auto) 0.1 Baso # (Auto) 0.0 Abs Immat Gran (auto) 0.04 H Absolute Neuts (auto) 4.8 Absolute Nucleated RBC 0.000 Nucleated RBC % (auto) 0.0 Anion Gap 14 Estim Creat Clear Calc 70.3 Estimated GFR > 60 Random Glucose 111 Calcium 8.6 D Total Bilirubin 0.7 AST 35 H ALT 22 Alkaline Phosphatase 115 Total Protein 6.5 Albumin 3.7 Stool Occult Blood POSITIVE Blood Type AB Negative Antibody Screen NEGATIVE Assessment and Plan (1) Acute lower GI hemorrhage: Status: Acute Plan This has a 83-year-old female with pertinent 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 Patient developed loose stools with large amount of hematochezia and hospital medicine team consulted on 10/03 for admission. #. Acute GI bleed, suspect lower: Will admit patient with cardiac monitoring. Closely monitor H&H. Consulted Gastroenterology, appreciate assistance. Will hold aspirin and Eliquis #. Multiple falls due to debility: Was evaluated by Physical therapy. Dispo: Acute rehab #. Comminuted fracture of left humeral head with impaction and displacement: Ortho eval #. History of CVA: Hold anticoagulation and antiplatelet agent in the setting of above. #. Mood disorder: On BuSpar and sertraline #. Congestive heart failure with reduced ejection fraction: No decompensation during admission. Not on home diuretics DVT prophylaxis: SCDs DNR/DNI. Discussed with son at bedside Admit as inpatient and will require two night minimum hospital stay for close hemodynamic monitoring, evaluation and management of acute GI bleed, monitoring of H&H (as above), which is not possible in a lesser acute setting. Specialist consult pending Quality Stroke Does the patient have a stroke diagnosis?: No VTE Prior VTE?: No VTE Risk Level:: Medical - moderate - high VTE Device Contraindication: N/A - Device Ordered VTE Drug Contraindication: Treatment Not Indicated
[2024-10-03] MEDS: Lactated Ringers 1,000 ML 100 ML IVCONT (23:35)
[2024-10-04] VITALS (10 sets, daily range): BP systolic 122–164; BP diastolic 60–72; PULSE 52–64; RESP 14–18; TEMP 36.1–36.8; O2SAT 94–98; BMI 22.1
--- NOTE | 2024-10-04 01:51 | PC.NURSE ---
Patient currently resting in hospital bed, RR 18, even chest wall rise and fall, no s/s of pain discomfort noted, purewick in place, LR infusing at 100 mL/hr via 20 G IV line in R wrist w/o issues. Patient's daughter at bedside, call chapman in patient's reach.
[2024-10-04] MEDS: 0.9 % Sodium Chloride Flush 3 ML SYRINGE IVFLUSH (08:35)
[2024-10-04 09:04] LABS: Hematocrit 27.9 % (37.0-47.0); Hemoglobin 9.5 g/dl (12.0-16.0); Imm Gran Abs Auto 0.02 X10*3/uL (0.00-0.03); Imm Gran Pct Auto 0.4 % (0.0-0.4); Lymphocytes Absolute Auto 0.7 X10*3/uL (1.2-4.9); MANUAL DIFF FLAG SCAN; Mean Corpuscular HGB Conc 34.1 g/dl (31.0-35.0); Mean Corpuscular Hemoglobin 31.9 pg (27.0-33.0); Mean Corpuscular Volume 93.6 fL (80.0-98.0); NRBC Abs Auto 0.000 X10*3/uL (0.0-0.012); NRBC Pct Auto 0.0 /100WBC (0.0-0.2); PLT CLUMP 1; Red Blood Count 2.98 X10*6/uL (4.20-5.50); SCAN SMEAR FLAG 1; White Blood Count 4.7 X10*3/uL (4.8-10.8)
[2024-10-04 09:27] LABS: Anion Gap 12 (12-20); Blood Urea Nitrogen 13 mg/dL (9-16); Calcium 8.3 mg/dL (8.4-10.2); Carbon Dioxide 24 mmol/L (22-29); Chloride 107 mmol/L (96-108); Creatinine Clr Calc Pharmacy 78.0; Estimated Glomerular Filt Rate > 60; Potassium 3.2 mmol/L (3.3-5.1); Sodium 140 mmol/L (135-145)
[2024-10-04 11:04] LABS: Folate 11.4 ng/mL (> or = 4.0); Vitamin B12 563 pg/mL (200-900)
--- NOTE | 2024-10-04 11:32 | PM.EVENT ---
Event Note Date of Service: 10/04/24 Event Note: prox nidia fx non operative sling for comfort ok to perform elbow and wrist rom no lifting she has appt with ortho on 10/24 Time Spent With Patient Time: Total time managing care of this patient today ____ minutes.
--- NOTE | 2024-10-04 12:10 | P.PNIM_ITS ---
Subjective Subjective Date of Service: 10/04/24 Interval History: GIB Review of Systems has episode of bleeding last night seems comfortable no abd pain Review of Systems: Yes all other systems are reviewed and are negative Physical Exam 2 Exam: Exam: Appearance: Alert.? Oriented , aphasia ,at her baseline. cvs: rrr, [id number] . res: clear to auscultation ,no rhonchii or wheezing abd: no rebound or guarding ,nt, bs present. ext pulses present , no cyanosis . neuro: moves all ext. Vital Signs: Vital Signs: Last Vital Signs Temp 97.6 F 10/04/24 11:02 Pulse 62 10/04/24 11:02 Resp 18 10/04/24 11:02 BP 144/70 H 10/04/24 11:02 Pulse Ox 98 10/04/24 11:02 O2 Del Method Room Air 10/04/24 11:02 BMI result Body Mass Index 22.1 Objective Data Active Medications Acetaminophen (Acetaminophen 325 Mg Tablet) 650 mg PO Q6H PRN PRN Reason: mild pain Last Admin: 10/03/24 21:04 Dose: 650 mg Documented By: ARASELI Amlodipine Besylate (Amlodipine Besylate 2.5 Mg Tablet) 2.5 mg PO DAILY [facility]; Protocol On Hold: 10/04/24 07:41 Last Admin: 10/03/24 10:02 Dose: 2.5 mg Documented By: EMA Atorvastatin Calcium (Atorvastatin Calcium 40 Mg Tablet) 40 mg PO DAILY [facility] Last Admin: 10/04/24 08:35 Dose: 40 mg Documented By: DAVIAN Buspirone HCl (Buspirone Hcl 10 Mg Tablet) 10 mg PO BID [facility] Last Admin: 10/04/24 08:35 Dose: 10 mg Documented By: DAVIAN Calcium Carbonate (Calcium Carbonate 750 Mg Tab.Chew) 750 mg PO Q4H PRN PRN Reason: Heartburn Carvedilol (Carvedilol 3.125 Mg Tablet) 3.125 mg PO BID [facility]; Protocol Last Admin: 10/04/24 08:35 Dose: 3.125 mg Documented By: DAVIAN Potassium Chloride (Potassium Chloride/H20) 10 meq in 100 mls @ 100 mls/hr IV Q1H [facility] Stop: 10/04/24 14:14 Lidocaine (Lidocaine 4 % Patch Adh..Patch) 1 patch TRANSDERMA Q12H PRN; Protocol PRN Reason: pain left shoulder Last Admin: 10/03/24 08:34 Dose: 1 patch Documented By: EMA Lisinopril (Lisinopril 20 Mg Tablet) 20 mg PO BID [facility]; Protocol On Hold: 10/04/24 07:41 Last Admin: 10/03/24 21:11 Dose: 20 mg Documented By: ARASELI Magnesium Hydroxide (Milk Of Magnesia 30 Ml Oral.Susp) 30 ml PO DAILY PRN PRN Reason: Constipation Melatonin (Melatonin 3 Mg Tablet) 6 mg PO BEDTIME PRN PRN Reason: Insomnia Ondansetron HCl (Ondansetron Hcl 4 Mg/2 Ml Vial) 4 mg IVPUSH Q8H PRN PRN Reason: Nausea and Vomiting Pantoprazole Sodium (Pantoprazole Sodium 40 Mg/10 Ml Vial) 40 mg IVPUSH BID@0630,1630 [facility] Last Admin: 10/04/24 08:35 Dose: 40 mg Documented By: DAVIAN Sertraline HCl (Sertraline Hcl 25 Mg Tablet) 75 mg PO DAILY [facility] On Hold: 10/04/24 07:41 Last Admin: 10/03/24 08:01 Dose: 75 mg Documented By: EMA Sodium Chloride (0.9 % Sodium Chloride Flush 3 Ml Syringe) 3 ml IVFLUSH QSHIFT [facility] Last Admin: 10/04/24 08:35 Dose: 3 ml Documented By: DAVIAN Labs 10/04/24 08:46 10/04/24 08:46 Labs: Laboratory Results - last 24 hr 10/03/24 10/03/24 10/04/24 16:31 16:53 08:46 MCV 93.2 93.6 MCH 32.9 31.9 MCHC 35.2 H 34.1 RDW 13.8 13.5 Plt Count 208 TNP MPV 10.3 TNP Immature Gran % (Auto) 0.6 H 0.4 Neut % (Auto) 73.7 H 69.3 Lymph % (Auto) 9.1 L 13.9 L Turner % (Auto) 14.4 H 13.2 H Eos % (Auto) 1.7 2.3 Baso % (Auto) 0.5 0.9 Lymph # (Auto) 0.6 L 0.7 L Turner # (Auto) 0.9 0.6 Eos # (Auto) 0.1 0.1 Baso # (Auto) 0.0 0.0 Abs Immat Gran (auto) 0.04 H 0.02 Absolute Neuts (auto) 4.8 3.3 Absolute Nucleated RBC 0.000 0.000 Nucleated RBC % (auto) 0.0 0.0 Smear Tech's Comments VERIFIED Anion Gap 14 12 Estim Creat Clear Calc 70.3 78.0 Estimated GFR > 60 > 60 Random Glucose 111 105 Calcium 8.6 D 8.3 L Total Bilirubin 0.7 AST 35 H ALT 22 Alkaline Phosphatase 115 Total Protein 6.5 Albumin 3.7 Vitamin B12 563 Folate 11.4 Stool Occult Blood POSITIVE Blood Type AB Negative Antibody Screen NEGATIVE Assessment and Plan (1) Acute lower GI hemorrhage: Status: Acute Plan 83-year-old female with pertinent 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 Patient developed loose stools with large amount of hematochezia and hospital medicine team consulted on 10/03 for admission. Acute GI bleed, suspect lower: episode of bleed last night Closely monitor H&H around 9.5 Consulted Gastroenterology, appreciate assistance. hold aspirin and Eliquis Multiple falls due to debility: Was evaluated by Physical therapy. Dispo: Acute rehab Comminuted fracture of left humeral head with impaction and displacement: Ortho eval noted -prox nidia fx,non operative,sling for comfort,ok to perform elbow and wrist rom,no lifting she has appt with ortho on 10/24 History of CVA: Hold anticoagulation and antiplatelet agent in the setting of above. Mood disorder: On BuSpar and sertraline Congestive heart failure with reduced ejection fraction: No decompensation during admission. Not on home diuretics DVT prophylaxis: SCDs . DNR/DNI. ongoing need for hospital stay for close hemodynamic monitoring, evaluation and management of acute GI bleed, monitoring of H&H (as above), which is not possible in a lesser acute setting. Specialist consult pending Quality Stroke Does the patient have a stroke diagnosis?: No VTE Prior VTE?: No VTE Risk Level:: Medical - moderate - high VTE Device Contraindication: N/A - Device Ordered VTE Drug Contraindication: Treatment Not Indicated
[2024-10-04 12:25] LABS: Magnesium 1.8 mg/dL (1.6-2.6)
[2024-10-04] MEDS: Potassium Chloride/H20 10 MEQ/100 ML PIGGYBACK 100 MEQ IV ×2 (14:08→14:49)
[2024-10-04 14:18] LABS: Glucose, Whole Blood 106 mg/dL (60-115)
[2024-10-04 14:45] LABS: Hematocrit 24.5 % (37.0-47.0); Hemoglobin 8.4 g/dl (12.0-16.0)
--- NOTE | 2024-10-04 15:02 | MHC.CM.PN ---
CM MET WITH PT AND DAUGHTER, ROVERTO, AT BEDSIDE PT RESIDES AT [facility] SHE IS ACTIVE WITH [facility] USED NO DME SKIDDER HCP, CONNOR, AND POA ON FILE PCP: JEANNINE MATTHEWS IMM DELIVERED DCP: PT WILL NEED STR, PREFERENCES ARE [facility], [facility], [facility] RESPECTIVELY BLS TRANSPORT
[2024-10-04 15:03] LABS: Anion Gap 11 (12-20); Blood Urea Nitrogen 15 mg/dL (9-16); Calcium 8.1 mg/dL (8.4-10.2); Carbon Dioxide 25 mmol/L (22-29); Chloride 107 mmol/L (96-108); Creatinine Clr Calc Pharmacy 81.1; Estimated Glomerular Filt Rate > 60; Potassium 3.4 mmol/L (3.3-5.1); Sodium 140 mmol/L (135-145)
[2024-10-04] MEDS: iohexoL 350 MG/ML 100 ML INFUS..BTL IV (15:42)
[2024-10-04] MEDS: Lactated Ringers 1,000 ML 80 ML IVCONT (16:22)
[2024-10-04] MEDS: Hum Prothrombin Cplx(PCC)4Fact 2,000 UNIT in Container,Empty 0 ML 480 UNIT IV (16:48)
--- NOTE | 2024-10-04 17:15 | PM.EVENT ---
Event Note Date of Service: 10/04/24 Event Note: GI Consult-Full note dictated-History from the patient's family including her son, daughter and son-in-law, her RN, and the EMR. Imp: Lower GI bleeding with drop in Hgb. I suspect this represents a diverticular bleed. Rec: Check results of CTA of abdomen. Reversal of Eliquis. Transfuse PRN. I told family that if CTA is positive for active bleed she would need attempt at IR embolization here or at a tertiary center. I do not think a colonoscopy would be helpful or feasible at this time given the active bleeding and her nerologic condition. D/W family in detail and they are comfortable with this plan. Thanks Time Spent With Patient Time: Total time managing care of this patient today ____ minutes.
--- NOTE | 2024-10-04 23:03 | CONS_ITS ---
DATE OF SERVICE: 10/04/2024 REASON FOR CONSULTATION: Lower GI bleeding. HISTORY OF PRESENT ILLNESS: History has been obtained from the patient's family including her daughter and son-in-law, and her son. History has also been obtained from her nurse, and the medical record. The patient is an 83-year-old female with aphasia resulting from a stroke earlier this year. The aphasia is primarily expressive although her family thinks there may be some level of difficulty with her understanding things. In any event, she has been on Eliquis since her stroke, as well as aspirin. She has no prior GI history, but developed an episode of lower GI bleeding that is described as fresh blood in the ER while awaiting transfer to a short-term rehab for history of recent falling and a broken humerus. Subsequent to that episode, she has had 2 more episodes including 1 this morning and 1 this afternoon. The one is today described more as a maroon and burgundy type bleeding. There was no melena. There has been no reported vomiting. The patient denies abdominal pain. There is no previous history of GI bleeding. She does not have any chronic GI complaints. Up until the stroke, she had been quite healthy and independent living on her own. There is no previous history of ulcer disease. She has never had a colonoscopy. Up until just recently, she had not seen a doctor since the 1970s or 1980s according to the family. She had always been very healthy. There is no history of previous smoking or significant alcohol use. Her last dose of Eliquis was yesterday morning. MEDICATIONS: At home included acetaminophen, amlodipine, aspirin 81 mg, atorvastatin, buspirone, carvedilol, Eliquis, vitamin D, lisinopril, sertraline. Her medications here in the hospital include acetaminophen, amlodipine, atorvastatin, buspirone, carvedilol, lisinopril, Zofran, IV Protonix, and sertraline. PAST MEDICAL HISTORY: Anxiety. Hypertension. Stroke earlier this year with resultant aphasia. Hyperlipidemia. There is no reported history of diabetes, CA, lung disease or kidney disease. There is no report of any significant surgeries. SOCIAL HISTORY: She is presently living in a rehab facility as above. FAMILY HISTORY: Noncontributory. REVIEW OF SYSTEMS: CONSTITUTIONAL: She apparently has been eating well. CARDIAC: No reported chest pain. PULMONARY: No reported coughing or hemoptysis. GI: As above. PHYSICAL EXAMINATION: GENERAL: The patient is a pleasant, elderly alert female. She has aphasia and cannot answer questions. SKIN: Anicteric sclerae. CARDIAC: Normal S1, S2. ABDOMEN: Soft and nondistended, nontender with normal bowel sounds. There is no organomegaly or mass. LABORATORY DATA: Hemoglobin in June was 13.1. Hemoglobin on October 02 was 9.3. Hemoglobin yesterday was 9.2. Hemoglobin this afternoon after an episode of bleeding was down to 8.4. Normal MCV. Platelet count is normal. PT was 15.6 with INR 1.4. Normal electrolytes, BUN 15, creatinine 0.5, calcium 8.1, total bilirubin 0.7, AST 35, ALT 22, alkaline phosphatase 115, albumin 3.7, vitamin B12 563, folate 11.4. She had a CT angiogram of the abdomen yesterday that was negative other than some possible minimal active bleeding from the distal rectum. She had a followup study today which was negative for any sign of active bleeding. IMPRESSION: Given the patient's clinical history and description of her bleeding, this seems consistent with a lower GI bleed. The most likely etiology would be a diverticular bleed. This does not seem consistent with a neoplasm. Ischemic colitis would be another possibility, although given the fact that she has been on Eliquis and aspirin would be making that condition less likely. At this point given the ongoing episode of bleeding, despite the negative CT angiogram, I do suspect she is having a diverticular bleed with intermittent bleeding from a vessel. As such, I would recommend giving her a reversal agent for her Eliquis as her last dose was only yesterday. I have also given her vitamin K to correct her mildly prolonged PT and INR. I would transfuse her as needed. I did review with the family that if bleeding continues, and/or a subsequent CT angiogram is positive, then she would need attempted interventional radiology embolization either here or at a tertiary center. I do not think colonoscopy would be helpful or feasible at this time given the bleeding and her neurologic condition, which would make a prep for the colonoscopy almost impossible. I advised the family that I do not think this is an upper GI bleed given the description of the bleeding and a normal BUN. Therefore, I would hold off on upper endoscopy. This has all been discussed in detail with the family and they are comfortable with the plan. MD THONG Mckeon/BOBBY / [id number] MTDD
[2024-10-04 23:41] LABS: Hematocrit 25.6 % (37.0-47.0); Hemoglobin 8.6 g/dl (12.0-16.0); Mean Corpuscular HGB Conc 33.6 g/dl (31.0-35.0); Mean Corpuscular Hemoglobin 32.1 pg (27.0-33.0); Mean Corpuscular Volume 95.5 fL (80.0-98.0); NRBC Abs Auto 0.000 X10*3/uL (0.0-0.012); NRBC Pct Auto 0.0 /100WBC (0.0-0.2); Platelet Count 196 X10*3/uL (160-400); Red Blood Count 2.68 X10*6/uL (4.20-5.50); White Blood Count 5.1 X10*3/uL (4.8-10.8)
--- NOTE | 2024-10-05 03:20 | PC.NURSE ---
Delayed Entry: Upon initial assessment, patient bladder scanned for 521cc. Patient had preexisting order for partida catheter placement. Notified provider [employer], one time order to straight cath. Patient straight cath'ed for 450cc, tolerated well.
[2024-10-05 03:32] VITALS: BP 132/63; PULSE 56; RESP 16; TEMP 36.3; O2SAT 99
[2024-10-05] MEDS: Lactated Ringers 1,000 ML 80 ML IVCONT (04:36)
--- NOTE | 2024-10-05 05:22 | PM.EVENT ---
Event Note Date of Service: 10/05/24 Event Note: Patient with ongoing urinary retention despite straight cath. Will order partida Time Spent With Patient Time: Total time managing care of this patient today ____ minutes.
[2024-10-05 07:03] VITALS: BP 147/67; PULSE 59; RESP 18; TEMP 36.9; O2SAT 95
[2024-10-05] MEDS: Lidocaine 4 % Patch ADH..PATCH 1 PATCH TRANSDERMA ×2 (07:33→20:00)
[2024-10-05 08:15] LABS: Hematocrit 25.0 % (37.0-47.0); Hemoglobin 8.5 g/dl (12.0-16.0)
[2024-10-05 08:31] LABS: Anion Gap 11 (12-20); Blood Urea Nitrogen 14 mg/dL (9-16); Calcium 7.9 mg/dL (8.4-10.2); Carbon Dioxide 25 mmol/L (22-29); Chloride 107 mmol/L (96-108); Creatinine Clr Calc Pharmacy 84.3; Estimated Glomerular Filt Rate > 60; Potassium 3.1 mmol/L (3.3-5.1); Sodium 140 mmol/L (135-145)
[2024-10-05 09:11] LABS: Thyroid Stimulating Hormone 1.53 uIU/mL (0.32-4.0)
[2024-10-05] MEDS: Potassium Chloride/H20 10 MEQ/100 ML PIGGYBACK 100 MEQ IV ×4 (10:07→13:17)
--- NOTE | 2024-10-05 11:05 | HO.PM.IMPN ---
Subjective Subjective Date of Service: 10/05/24 Interval History: gib Review of Systems no new episode seems more active /agile today urinary retention-added partida Review of Systems: Yes all other systems are reviewed and are negative Physical Exam Vital Signs: Vital Signs: Last Vital Signs Temp 98.4 F 10/05/24 07:03 Pulse 59 10/05/24 07:03 Resp 18 10/05/24 07:03 BP 147/67 H 10/05/24 07:03 Pulse Ox 95 10/05/24 07:03 O2 Del Method Room Air 10/05/24 07:03 BMI result Body Mass Index 22.1 Objective Data Active Medications Acetaminophen (Acetaminophen 325 Mg Tablet) 650 mg PO Q6H PRN On Hold: 10/04/24 15:09 PRN Reason: mild pain Last Admin: 10/03/24 21:04 Dose: 650 mg Documented By: ARASELI Amlodipine Besylate (Amlodipine Besylate 2.5 Mg Tablet) 2.5 mg PO DAILY REPLACED BY [facility]; Protocol On Hold: 10/04/24 07:41 Last Admin: 10/03/24 10:02 Dose: 2.5 mg Documented By: EMA Atorvastatin Calcium (Atorvastatin Calcium 40 Mg Tablet) 40 mg PO DAILY MARYBETH On Hold: 10/04/24 15:09 Last Admin: 10/04/24 08:35 Dose: 40 mg Documented By: DAVIAN Buspirone HCl (Buspirone Hcl 10 Mg Tablet) 10 mg PO BID MARYBETH On Hold: 10/04/24 15:09 Last Admin: 10/04/24 08:35 Dose: 10 mg Documented By: DAVIAN Calcium Carbonate (Calcium Carbonate 750 Mg Tab.Chew) 750 mg PO Q4H PRN On Hold: 10/04/24 15:09 PRN Reason: Heartburn Carvedilol (Carvedilol 3.125 Mg Tablet) 3.125 mg PO BID MARYBETH; Protocol On Hold: 10/04/24 15:09 Last Admin: 10/04/24 08:35 Dose: 3.125 mg Documented By: DAVIAN Lactated Ringer's (Lr) 1,000 mls @ 80 mls/hr IVCONT .[id number] REPLACED BY [facility] Last Admin: 10/05/24 04:36 Dose: 80 mls/hr Documented By: JOSE Acetaminophen (Ofirmev) 1,000 mg in 100 mls @ 400 mls/hr IV Q6H REPLACED BY [facility] Last Admin: 10/05/24 07:59 Dose: Not Given Documented By: DAVIAN Non-Admin Reason: Previously Administered Potassium Chloride (Potassium Chloride/H20) 10 meq in 100 mls @ 100 mls/hr IV Q1H MARYBETH Stop: 10/05/24 12:44 Last Admin: 10/05/24 11:05 Dose: 100 mls/hr Documented By: DAVIAN Lidocaine (Lidocaine 4 % Patch Adh..Patch) 1 patch TRANSDERMA Q12H PRN; Protocol PRN Reason: pain left shoulder Last Admin: 10/03/24 08:34 Dose: 1 patch Documented By: EMA Lidocaine (Lidocaine 4 % Patch Adh..Patch) 1 patch TRANSDERMA DAILY REPLACED BY [facility]; Protocol Last Admin: 10/05/24 07:33 Dose: 1 patch Documented By: DAVIAN Lisinopril (Lisinopril 20 Mg Tablet) 20 mg PO BID REPLACED BY [facility]; Protocol On Hold: 10/04/24 07:41 Last Admin: 10/03/24 21:11 Dose: 20 mg Documented By: ARASELI Magnesium Hydroxide (Milk Of Magnesia 30 Ml Oral.Susp) 30 ml PO DAILY PRN On Hold: 10/04/24 15:10 PRN Reason: Constipation Melatonin (Melatonin 3 Mg Tablet) 6 mg PO BEDTIME PRN On Hold: 10/04/24 15:10 PRN Reason: Insomnia Ondansetron HCl (Ondansetron Hcl 4 Mg/2 Ml Vial) 4 mg IVPUSH Q8H PRN On Hold: 10/04/24 15:10 PRN Reason: Nausea and Vomiting Pantoprazole Sodium (Pantoprazole Sodium 40 Mg/10 Ml Vial) 40 mg IVPUSH BID@0630,1630 REPLACED BY [facility] Last Admin: 10/05/24 05:40 Dose: 40 mg Documented By: JOSE Sertraline HCl (Sertraline Hcl 25 Mg Tablet) 75 mg PO DAILY MARYBETH On Hold: 10/04/24 07:41 Last Admin: 10/03/24 08:01 Dose: 75 mg Documented By: EMA Sodium Chloride (0.9 % Sodium Chloride Flush 3 Ml Syringe) 3 ml IVFLUSH QSHIFT REPLACED BY [facility] Last Admin: 10/05/24 07:34 Dose: Not Given Documented By: DAVIAN Non-Admin Reason: IV Running Labs 10/05/24 07:49 10/05/24 07:49 Labs: Laboratory Results - last 24 hr 10/03/24 10/04/24 10/04/24 16:31 08:46 14:13 MCV MCH MCHC RDW Plt Count MPV Absolute Nucleated RBC Nucleated RBC % (auto) Anion Gap Estim Creat Clear Calc Estimated GFR POC Glucose 106 Random Glucose Calcium Magnesium 1.8 Vitamin B12 563 Folate 11.4 TSH Blood Type AB Negative Antibody Screen NEGATIVE Crossmatch See Detail 10/04/24 10/04/24 10/05/24 14:35 23:23 07:49 MCV 95.5 MCH 32.1 MCHC 33.6 RDW 13.7 Plt Count 196 MPV 10.1 Absolute Nucleated RBC 0.000 Nucleated RBC % (auto) 0.0 Anion Gap 11 L 11 L Estim Creat Clear Calc 81.1 84.3 Estimated GFR > 60 > 60 POC Glucose Random Glucose 118 H 90 Calcium 8.1 L 7.9 L Magnesium Vitamin B12 Folate TSH 1.53 Blood Type Antibody Screen Crossmatch Assessment and Plan (1) Acute lower GI hemorrhage: Status: Acute Plan 83-year-old female with pertinent 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 Patient developed loose stools with large amount of hematochezia and hospital medicine team consulted on 10/03 for admission. Acute GI bleed, suspect lower: no new episode for bleed. s/p kcentra ,vitamin k, 1 prbc. cta abd:1. No acute intraabdominal or pelvic pathology.2. No evidence of active gastrointestinal bleeding. plan: Closely monitor H&H around 8.5 , hold aspirin and Eliquis. trial of clear liquid diet. Gi eval appreciated . Multiple falls due to debility: Was evaluated by Physical therapy. Dispo: Acute rehab. urinary retention: added flomax .partida. Comminuted fracture of left humeral head with impaction and displacement: Ortho eval noted -prox nidia fx,non operative,sling for comfort,ok to perform elbow and wrist rom,no lifting she has appt with ortho on 10/24 History of CVA: Hold anticoagulation and antiplatelet agent in the setting of above. Mood disorder: On BuSpar and sertraline Congestive heart failure with reduced ejection fraction: No decompensation during admission. Not on home diuretics DVT prophylaxis: SCDs . DNR/DNI. ongoing need for hospital stay for close hemodynamic monitoring, evaluation and management of acute GI bleed, monitoring of H&H (as above), which is not possible in a lesser acute setting. Specialist consult pending Quality Stroke Does the patient have a stroke diagnosis?: No VTE Prior VTE?: No VTE Risk Level:: Medical - moderate - high VTE Device Contraindication: N/A - Device Ordered VTE Drug Contraindication: Treatment Not Indicated
[2024-10-05 11:13] VITALS: BP 141/67; PULSE 57; RESP 18; TEMP 36.4; O2SAT 97
[2024-10-05 15:50] VITALS: BP 136/69; PULSE 59; RESP 18; TEMP 36.6; O2SAT 96
[2024-10-05] MEDS: 0.9 % Sodium Chloride Flush 3 ML SYRINGE IVFLUSH (16:48)
[2024-10-05 19:19] VITALS: BP 153/73; PULSE 62; RESP 15; TEMP 36.3; O2SAT 100
[2024-10-05 23:03] VITALS: BP 130/77; PULSE 72; RESP 18; TEMP 36.3; O2SAT 97
[2024-10-06] MEDS: 0.9 % Sodium Chloride Flush 3 ML SYRINGE IVFLUSH ×4 (01:29→20:50)
[2024-10-06 05:35] VITALS: BP 140/64; PULSE 71; RESP 19; TEMP 36.6; O2SAT 99
[2024-10-06 07:44] VITALS: BP 177/86; PULSE 84; RESP 18; TEMP 36.6; O2SAT 100
[2024-10-06] MEDS: Lidocaine 4 % Patch ADH..PATCH 1 PATCH TRANSDERMA ×2 (08:20→20:40)
[2024-10-06 09:11] LABS: Hematocrit 28.7 % (37.0-47.0); Hemoglobin 9.5 g/dl (12.0-16.0)
[2024-10-06 09:28] LABS: Anion Gap 13 (12-20); Blood Urea Nitrogen 11 mg/dL (9-16); Calcium 8.3 mg/dL (8.4-10.2); Carbon Dioxide 23 mmol/L (22-29); Chloride 108 mmol/L (96-108); Creatinine Clr Calc Pharmacy 76.7; Estimated Glomerular Filt Rate > 60; Potassium 3.4 mmol/L (3.3-5.1); Sodium 141 mmol/L (135-145)
--- NOTE | 2024-10-06 13:36 | HO.PM.IMPN ---
Subjective Subjective Date of Service: 10/06/24 Interval History: cva gib Review of Systems no new bleed intermittent agitation vs delirum currently calm Review of Systems: Yes all other systems are reviewed and are negative Physical Exam Exam: Exam: Appearance: Alert.? Oriented , aphasia ,at her baseline. cvs: rrr, [id number] . res: clear to auscultation ,no rhonchii or wheezing abd: no rebound or guarding ,nt, bs present. ext pulses present , no cyanosis . neuro: moves all ext. Vital Signs: Vital Signs: Last Vital Signs Temp 97.9 F 10/06/24 07:44 Pulse 84 10/06/24 07:44 Resp 18 10/06/24 07:44 BP 177/86 H 10/06/24 07:44 Pulse Ox 100 10/06/24 07:44 O2 Del Method Room Air 10/06/24 07:44 BMI result Body Mass Index 22.1 Objective Data Active Medications Acetaminophen (Acetaminophen 325 Mg Tablet) 650 mg PO Q6H PRN PRN Reason: mild pain Last Admin: 10/03/24 21:04 Dose: 650 mg Documented By: ARASELI Amlodipine Besylate (Amlodipine Besylate 2.5 Mg Tablet) 2.5 mg PO DAILY [facility]; Protocol On Hold: 10/04/24 07:41 Last Admin: 10/03/24 10:02 Dose: 2.5 mg Documented By: EMA Atorvastatin Calcium (Atorvastatin Calcium 40 Mg Tablet) 40 mg PO DAILY [facility] Last Admin: 10/06/24 09:08 Dose: 40 mg Documented By: DAVIAN Buspirone HCl (Buspirone Hcl 10 Mg Tablet) 10 mg PO BID [facility] Last Admin: 10/06/24 08:21 Dose: 10 mg Documented By: DAVIAN Calcium Carbonate (Calcium Carbonate 750 Mg Tab.Chew) 750 mg PO Q4H PRN On Hold: 10/04/24 15:09 PRN Reason: Heartburn Carvedilol (Carvedilol 3.125 Mg Tablet) 3.125 mg PO BID [facility]; Protocol Last Admin: 10/06/24 09:08 Dose: 3.125 mg Documented By: DAVIAN Lidocaine (Lidocaine 4 % Patch Adh..Patch) 1 patch TRANSDERMA Q12H PRN; Protocol PRN Reason: pain left shoulder Last Admin: 10/05/24 20:00 Dose: 1 patch Documented By: DANETTE Lidocaine (Lidocaine 4 % Patch Adh..Patch) 1 patch TRANSDERMA DAILY [facility]; Protocol Last Admin: 10/06/24 08:20 Dose: 1 patch Documented By: DAVIAN Lisinopril (Lisinopril 20 Mg Tablet) 20 mg PO BID [facility]; Protocol On Hold: 10/04/24 07:41 Last Admin: 10/03/24 21:11 Dose: 20 mg Documented By: ARASELI Lorazepam (Lorazepam 1 Mg Tablet) 1 mg PO BID PRN PRN Reason: Anxiety Last Admin: 10/06/24 08:54 Dose: 1 mg Documented By: DAVIAN Magnesium Hydroxide (Milk Of Magnesia 30 Ml Oral.Susp) 30 ml PO DAILY PRN On Hold: 10/04/24 15:10 PRN Reason: Constipation Melatonin (Melatonin 3 Mg Tablet) 6 mg PO BEDTIME PRN PRN Reason: Insomnia Last Admin: 10/05/24 20:00 Dose: 6 mg Documented By: DANETTE Omeprazole (Omeprazole 20 Mg Capsule.Dr) 20 mg PO BID@0630,1630 [facility] Ondansetron HCl (Ondansetron Hcl 4 Mg/2 Ml Vial) 4 mg IVPUSH Q8H PRN On Hold: 10/04/24 15:10 PRN Reason: Nausea and Vomiting Quetiapine Fumarate (Quetiapine Fumarate 25 Mg Tablet) 25 mg PO BID PRN PRN Reason: agitation Sertraline HCl (Sertraline Hcl 25 Mg Tablet) 75 mg PO DAILY [facility] Last Admin: 10/06/24 09:08 Dose: 75 mg Documented By: DAVIAN Sodium Chloride (0.9 % Sodium Chloride Flush 3 Ml Syringe) 3 ml IVFLUSH QSHIFT [facility] Last Admin: 10/06/24 08:21 Dose: 3 ml Documented By: DAVIAN Tamsulosin HCl (Tamsulosin Hcl 0.4 Mg Capsule) 0.8 mg PO BEDTIME [facility] Labs 10/06/24 08:27 10/06/24 08:27 Labs: Laboratory Results - last 24 hr 10/06/24 08:27 Anion Gap 13 Estim Creat Clear Calc 76.7 Estimated GFR > 60 Random Glucose 130 H Calcium 8.3 L Assessment and Plan (1) Acute lower GI hemorrhage: Status: Acute Plan 83-year-old female with pertinent 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 Patient developed loose stools with large amount of hematochezia and hospital medicine team consulted on 10/03 for admission. Acute GI bleed, suspect lower: episode of syncope on 10/04 possible sec to bleeding /urinary retetion vs vasovagal. no new episode for bleed. s/p kcentra ,vitamin k, 1 prbc. cta abd:1. No acute intraabdominal or pelvic pathology.2. No evidence of active gastrointestinal bleeding. plan: Closely monitor H&H around 9.5 , hold aspirin and Eliquis. trial of diet Gi followup . Multiple falls due to debility: Was evaluated by Physical therapy. Dispo: Acute rehab. urinary retention: continue flomax -trial of voding/taking out partida. Comminuted fracture of left humeral head with impaction and displacement: Ortho eval noted -prox nidia fx,non operative,sling for comfort,ok to perform elbow and wrist rom,no lifting she has appt with ortho on 10/24 History of CVA: Hold anticoagulation and antiplatelet agent in the setting of above. Mood disorder: On BuSpar and sertraline,added prn ativan for agitation Congestive heart failure with reduced ejection fraction: No decompensation during admission. Not on home diuretics DVT prophylaxis: SCDs . DNR/DNI. ongoing need for hospital stay for close hemodynamic monitoring, evaluation and management of acute GI bleed, monitoring of H&H (as above), Gi follow up. Quality Stroke Does the patient have a stroke diagnosis?: No VTE Prior VTE?: No VTE Risk Level:: Medical - moderate - high VTE Device Contraindication: N/A - Device Ordered VTE Drug Contraindication: Treatment Not Indicated
[2024-10-06 16:00] VITALS: BP 162/82; PULSE 73; RESP 18; TEMP 36.8; O2SAT 95
[2024-10-06] MEDS: diazePAM 10 MG/2 ML CARTRIDGE 2.5 MG IVPUSH (16:35)
[2024-10-06 19:05] VITALS: BP 155/70; PULSE 75; RESP 16; TEMP 36.6; O2SAT 96
[2024-10-06 23:14] VITALS: BP 152/65; PULSE 68; RESP 18; TEMP 37; O2SAT 93
[2024-10-07 03:12] VITALS: BP 140/63; PULSE 63; RESP 16; TEMP 36.3; O2SAT 96
[2024-10-07 06:59] VITALS: BP 161/72; PULSE 60; RESP 16; TEMP 36.3; O2SAT 97
[2024-10-07] MEDS: 0.9 % Sodium Chloride Flush 3 ML SYRINGE IVFLUSH ×3 (08:29→21:13)
[2024-10-07] MEDS: Lidocaine 4 % Patch ADH..PATCH 1 PATCH TRANSDERMA (08:30)
[2024-10-07 11:07] VITALS: BP 144/68; PULSE 53; RESP 18; TEMP 36.3; O2SAT 97
--- NOTE | 2024-10-07 12:50 | W.MHC.ACPN ---
Advanced Care Planning Note Advanced Care Planning Note Time spent (in minutes): 35 Narrative: Patient with multiple he has including CVA and GI bleeding requiring transfusion: Discussed with the family in detail length-family family is deferring further interventions, considering new stroke,cognitive and function decline , aphasia, GI bleed:Family is also not considering further anticoagulation, conisering overall poor prognosis /quality of life -familt deciding for palliative/hospice care Problems Discussed (1) Acute lower GI hemorrhage:
--- NOTE | 2024-10-07 15:02 | HO.PM.IMPN ---
Subjective Subjective Date of Service: 10/07/24 Interval History: gib Review of Systems no new bleeding episode more calm today Physical Exam Vital Signs: Vital Signs: Last Vital Signs Temp 97.3 F 10/07/24 11:07 Pulse 53 10/07/24 11:07 Resp 18 10/07/24 11:07 BP 144/68 H 10/07/24 11:07 Pulse Ox 97 10/07/24 11:07 O2 Del Method Room Air 10/07/24 11:07 BMI result Body Mass Index 22.1 Objective Data Active Medications Acetaminophen (Acetaminophen 325 Mg Tablet) 650 mg PO Q6H PRN PRN Reason: mild pain Last Admin: 10/03/24 21:04 Dose: 650 mg Documented By: ARASELI Amlodipine Besylate (Amlodipine Besylate 2.5 Mg Tablet) 2.5 mg PO DAILY [facility]; Protocol Last Admin: 10/07/24 08:29 Dose: 2.5 mg Documented By: LUCA Atorvastatin Calcium (Atorvastatin Calcium 40 Mg Tablet) 40 mg PO DAILY [facility] Last Admin: 10/07/24 08:30 Dose: 40 mg Documented By: LUCA Buspirone HCl (Buspirone Hcl 10 Mg Tablet) 10 mg PO BID [facility] Last Admin: 10/07/24 08:30 Dose: 10 mg Documented By: LUCA Calcium Carbonate (Calcium Carbonate 750 Mg Tab.Chew) 750 mg PO Q4H PRN On Hold: 10/04/24 15:09 PRN Reason: Heartburn Carvedilol (Carvedilol 3.125 Mg Tablet) 3.125 mg PO BID [facility]; Protocol Last Admin: 10/07/24 08:30 Dose: 3.125 mg Documented By: LUCA Diazepam (Diazepam 10 Mg/2 Ml Cartridge) 2.5 mg IVPUSH BID PRN PRN Reason: anxiety Last Admin: 10/06/24 16:35 Dose: 2.5 mg Documented By: SURYA Lidocaine (Lidocaine 4 % Patch Adh..Patch) 1 patch TRANSDERMA Q12H PRN; Protocol PRN Reason: pain left shoulder Last Admin: 10/05/24 20:00 Dose: 1 patch Documented By: DANETTE Lidocaine (Lidocaine 4 % Patch Adh..Patch) 1 patch TRANSDERMA DAILY [facility]; Protocol Last Admin: 10/07/24 08:30 Dose: 1 patch Documented By: LUCA Lisinopril (Lisinopril 20 Mg Tablet) 20 mg PO BID [facility]; Protocol On Hold: 10/04/24 07:41 Last Admin: 10/03/24 21:11 Dose: 20 mg Documented By: ARASELI Magnesium Hydroxide (Milk Of Magnesia 30 Ml Oral.Susp) 30 ml PO DAILY PRN On Hold: 10/04/24 15:10 PRN Reason: Constipation Melatonin (Melatonin 3 Mg Tablet) 6 mg PO BEDTIME PRN PRN Reason: Insomnia Last Admin: 10/06/24 20:40 Dose: 6 mg Documented By: BERNY Omeprazole (Omeprazole 20 Mg Capsule.Dr) 20 mg PO BID@0630,1630 [facility] Last Admin: 10/07/24 07:21 Dose: Not Given Documented By: DANETTE Non-Admin Reason: Patient Refused Ondansetron HCl (Ondansetron Hcl 4 Mg/2 Ml Vial) 4 mg IVPUSH Q8H PRN On Hold: 10/04/24 15:10 PRN Reason: Nausea and Vomiting Quetiapine Fumarate (Quetiapine Fumarate 25 Mg Tablet) 25 mg PO BID PRN PRN Reason: agitation Last Admin: 10/06/24 20:40 Dose: 25 mg Documented By: BERNY Sertraline HCl (Sertraline Hcl 25 Mg Tablet) 75 mg PO DAILY [facility] Last Admin: 10/07/24 08:30 Dose: 75 mg Documented By: LUCA Sodium Chloride (0.9 % Sodium Chloride Flush 3 Ml Syringe) 3 ml IVFLUSH QSHIFT [facility] Last Admin: 10/07/24 08:29 Dose: 3 ml Documented By: LUCA Tamsulosin HCl (Tamsulosin Hcl 0.4 Mg Capsule) 0.8 mg PO BEDTIME [facility] Last Admin: 10/06/24 20:39 Dose: 0.8 mg Documented By: BERNY Labs 10/06/24 08:27 10/06/24 08:27 Assessment and Plan (1) Acute lower GI hemorrhage: Status: Acute Plan 83-year-old female with pertinent 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 Patient developed loose stools with large amount of hematochezia and hospital medicine team consulted on 10/03 for admission. Acute GI bleed, suspect lower: episode of syncope on 10/04 possible sec to bleeding /urinary retetion vs vasovagal. no new episode for bleed. s/p kcentra ,vitamin k, 1 prbc. cta abd:1. No acute intraabdominal or pelvic pathology.2. No evidence of active gastrointestinal bleeding. plan: Closely monitor H&H around 9.5 , hold aspirin and Eliquis. trial of diet Gi followup . Multiple falls due to debility: Was evaluated by Physical therapy. Dispo: Acute rehab. urinary retention: continue flomax -trial of voding/off partida Comminuted fracture of left humeral head with impaction and displacement: Ortho eval noted -prox nidia fx,non operative,sling for comfort,ok to perform elbow and wrist rom,no lifting she has appt with ortho on 10/24 History of CVA: Hold anticoagulation and antiplatelet agent in the setting of above. has aphasia/cognitive decline/functional decline Patient has behavior disturbances: Improving with Valium Mood disorder: On BuSpar and sertraline,added p.o. Valium p.r.n. Congestive heart failure with reduced ejection fraction: No decompensation during admission. Not on home diuretics DVT prophylaxis: SCDs . DNR/DNI. Above management discussed with the family in detail length-ro[employer] towards palliative management, corporate giving manager is working on hospice/palliative. Quality Stroke Does the patient have a stroke diagnosis?: No VTE Prior VTE?: No VTE Risk Level:: Medical - moderate - high VTE Device Contraindication: N/A - Device Ordered VTE Drug Contraindication: Treatment Not Indicated
--- NOTE | 2024-10-07 15:17 | MHC.CM.PN ---
EMR REVIEWED, HOSPICE REFERRAL PLACED PER HOSPITALIST AFTER SPEAKING W/FAMILY, CM MET W/DTR ROVERTO WHO REPORTS SHE WOULD LIKE TO MEET W/HOSPICE WHEN HER SISTER IS PRESENT AND PT'S SON AVAILABLE, REF PLACED AND [facility] MET W/FAMILY AT 1PM IN FAMILY WAITING ROOM, FAMILY AGREEABLE TO HOSPICE HOWEVER WILL NEED SNF PLACEMENT FAMILY IS UNABLE TO PROVIDE 24HR CARE, SNF REFERRAL UPDATED AND CM CURRENTLY AWAITING BED OFFERS.
[2024-10-07 16:00] VITALS: BP 147/61; PULSE 52; RESP 20; TEMP 36.7; O2SAT 94
[2024-10-07 20:00] VITALS: BP 138/63; PULSE 57; RESP 18; TEMP 36.4; O2SAT 98
[2024-10-08] VITALS (8 sets, daily range): BP systolic 82–151; BP diastolic 44–82; PULSE 53–76; RESP 16–18; TEMP 36.3–36.8; O2SAT 93–98
[2024-10-08] MEDS: Lidocaine 4 % Patch ADH..PATCH 1 PATCH TRANSDERMA (08:41)
[2024-10-08] MEDS: 0.9 % Sodium Chloride Flush 3 ML SYRINGE IVFLUSH ×3 (08:52→20:49)
--- NOTE | 2024-10-08 12:01 | MHC.CLN ---
NUTRITION ROUTINE CONSULT PATIENT WITH VARIABLE PO INTAKE, 0-50%. LIBERALIZE DIET FROM CARDIAC TO REGULAR TO PROMOTE PO INTAKE. PROVIDE ENSURE TID TO INCREASE NUTRITIONAL INTAKE. SUPPLEMENT PROVIDES 1050 KCALS, 60 G PROTEIN. MONITOR FOR PLAN OF CARE.
--- NOTE | 2024-10-08 12:32 | MHC.CM.PN ---
EMR REVIEWED, CM RECEIVED MESSAGE FROM MIKEL CRUZ AT [facility], CM RETURNED CALL AND MIKEL CRUZ REPORTED PT IS CLINICALLY APPROPRIATE AND THEY COULD TAKE HER SOON TOMORROW MORNING. CM SPOKE W/DTR [facility] ROVERTO AT NUMBER ON FILE X2, MET W/DTR/ALTERNATE HCP RALF AND PT'S SON INDIVIDUALLY AND TOGETHER. AFTER DISCUSSION BETWEEN PT'S 3 CHILDREN THEY ARE IN AGREEMENT AND HAVE DECIDED ON SENDING PT TO [facility]. PT WILL DC TOMORROW 10/09 AT 10:30AM PER REQUEST OF [facility] NURSE MIKEL CRUZ, PAMELA SPOKE W/MARKO WHO TOOK OVER FOR MIKEL CRUZ TO LET HER KNOW THAT FAMILY HAS AGREED, MARKO REPORTS THEY WILL REACH OUT TO ROVERTO/HCP IF NEEDED AND THAT ROVERTO HAS ALREADY SPOKEN TO BUSINESS OFFICE.
--- NOTE | 2024-10-08 14:36 | P.PNIM_ITS ---
Subjective Subjective Date of Service: 10/08/24 Interval History: anemia Review of Systems seems more calm no new Review of Systems: Yes all other systems are reviewed and are negative Physical Exam 2 Exam: Exam: Appearance: awake ,more alert , aphasia ,at her baseline. cvs: rrr, [id number] . res: clear to auscultation ,no rhonchii or wheezing abd: no rebound or guarding ,nt, bs present. ext pulses present , no cyanosis . neuro: moves all ext. Vital Signs: Vital Signs: Last Vital Signs Temp 97.5 F 10/08/24 11:03 Pulse 58 10/08/24 11:03 Resp 18 10/08/24 11:03 BP 120/60 10/08/24 13:25 Pulse Ox 95 10/08/24 11:03 O2 Del Method Room Air 10/08/24 11:03 BMI result Body Mass Index 22.1 Objective Data Active Medications Acetaminophen (Acetaminophen 325 Mg Tablet) 650 mg PO Q6H PRN PRN Reason: mild pain Last Admin: 10/08/24 06:11 Dose: 650 mg Documented By: FLORINA Amlodipine Besylate (Amlodipine Besylate 2.5 Mg Tablet) 2.5 mg PO DAILY [facility]; Protocol Last Admin: 10/08/24 08:40 Dose: 2.5 mg Documented By: SURYA Atorvastatin Calcium (Atorvastatin Calcium 40 Mg Tablet) 40 mg PO DAILY [facility] Last Admin: 10/08/24 08:40 Dose: 40 mg Documented By: SURYA Buspirone HCl (Buspirone Hcl 10 Mg Tablet) 10 mg PO BID [facility] Last Admin: 10/08/24 08:41 Dose: 10 mg Documented By: SURYA Calcium Carbonate (Calcium Carbonate 750 Mg Tab.Chew) 750 mg PO Q4H PRN On Hold: 10/04/24 15:09 PRN Reason: Heartburn Carvedilol (Carvedilol 3.125 Mg Tablet) 3.125 mg PO BID [facility]; Protocol Last Admin: 10/08/24 08:41 Dose: 3.125 mg Documented By: SURYA Diazepam (Diazepam 2 Mg Tablet) 2 mg PO BID PRN PRN Reason: anxiety Lidocaine (Lidocaine 4 % Patch Adh..Patch) 1 patch TRANSDERMA Q12H PRN; Protocol PRN Reason: pain left shoulder Last Admin: 10/05/24 20:00 Dose: 1 patch Documented By: DANETTE Lidocaine (Lidocaine 4 % Patch Adh..Patch) 1 patch TRANSDERMA DAILY [facility]; Protocol Last Admin: 10/08/24 08:41 Dose: 1 patch Documented By: SURYA Lisinopril (Lisinopril 20 Mg Tablet) 20 mg PO BID [facility]; Protocol On Hold: 10/04/24 07:41 Last Admin: 10/03/24 21:11 Dose: 20 mg Documented By: ARASELI Magnesium Hydroxide (Milk Of Magnesia 30 Ml Oral.Susp) 30 ml PO DAILY PRN On Hold: 10/04/24 15:10 PRN Reason: Constipation Melatonin (Melatonin 3 Mg Tablet) 6 mg PO BEDTIME PRN PRN Reason: Insomnia Last Admin: 10/06/24 20:40 Dose: 6 mg Documented By: BERNY Omeprazole (Omeprazole 20 Mg Capsule.Dr) 20 mg PO BID@0630,1630 [facility] Last Admin: 10/08/24 06:09 Dose: 20 mg Documented By: FLORINA Ondansetron HCl (Ondansetron Hcl 4 Mg/2 Ml Vial) 4 mg IVPUSH Q8H PRN On Hold: 10/04/24 15:10 PRN Reason: Nausea and Vomiting Quetiapine Fumarate (Quetiapine Fumarate 25 Mg Tablet) 25 mg PO BID PRN PRN Reason: agitation Last Admin: 10/07/24 21:07 Dose: 25 mg Documented By: JOHN Sertraline HCl (Sertraline Hcl 25 Mg Tablet) 75 mg PO DAILY [facility] Last Admin: 10/08/24 08:41 Dose: 75 mg Documented By: SURYA Sodium Chloride (0.9 % Sodium Chloride Flush 3 Ml Syringe) 3 ml IVFLUSH QSHIFT [facility] Last Admin: 10/08/24 08:52 Dose: 3 ml Documented By: SURYA Tamsulosin HCl (Tamsulosin Hcl 0.4 Mg Capsule) 0.8 mg PO BEDTIME [facility] Last Admin: 10/07/24 21:07 Dose: 0.8 mg Documented By: JOHN Labs 10/06/24 08:27 10/06/24 08:27 Assessment and Plan (1) Acute lower GI hemorrhage: Status: Acute Plan 83-year-old female with pertinent 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 Patient developed loose stools with large amount of hematochezia and hospital medicine team consulted on 10/03 for admission. Acute GI bleed, suspect lower: episode of syncope on 10/04 possible sec to bleeding /urinary retetion vs vasovagal. no new episode for bleed. s/p kcentra ,vitamin k, 1 prbc. cta abd:1. No acute intraabdominal or pelvic pathology.2. No evidence of active gastrointestinal bleeding. plan: Closely monitor H&H around 9.5 , hold aspirin and Eliquis for 1week per Gi.. Multiple falls due to debility: Was evaluated by Physical therapy. Dispo: Acute rehab. urinary retention: continue flomax -trial of voding/off partida, moniter pvr ,if continue to retain consider partida outapatient /urology eval. Comminuted fracture of left humeral head with impaction and displacement: Ortho eval noted -prox nidia fx,non operative,sling for comfort,ok to perform elbow and wrist rom,no lifting she has appt with ortho on 10/24 History of CVA: Hold anticoagulation and antiplatelet agent in the setting of above. has aphasia/cognitive decline/functional decline Patient has behavior disturbances: Improving with Valium Mood disorder: On BuSpar and sertraline,added p.o. Valium p.r.n. Congestive heart failure with reduced ejection fraction: No decompensation during admission. Not on home diuretics DVT prophylaxis: SCDs . DNR/DNI. 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 Quality Stroke Does the patient have a stroke diagnosis?: No VTE Prior VTE?: No VTE Risk Level:: Medical - moderate - high VTE Device Contraindication: N/A - Device Ordered VTE Drug Contraindication: Treatment Not Indicated
[2024-10-09 04:00] VITALS: BP 131/59; PULSE 73; RESP 16; TEMP 37; O2SAT 96
[2024-10-09 07:07] VITALS: BP 121/62; PULSE 71; RESP 16; TEMP 36.5; O2SAT 95
[2024-10-09 07:44] VITALS: BP 121/62; PULSE 71
[2024-10-09] MEDS: 0.9 % Sodium Chloride Flush 3 ML SYRINGE IVFLUSH (07:45)
[2024-10-09] MEDS: Lidocaine 4 % Patch ADH..PATCH 1 PATCH TRANSDERMA (07:45)
--- NOTE | 2024-10-09 09:17 | PM.DS ---
DS: Providers Provider Date of Service: 10/09/24 Date of admission: 10/03/24 22:11 Date of discharge: 10/09/24 Primary care physician: Tricia Hill MD Consults: 10/02/24 12:21 Consult to Case Management Stat Comment: 10/03/24 22:20 Consult to Gastroenterology Routine Consulting Provider: Diane Hameed Reason for consultation: GI bleed 10/03/24 22:36 Consult to Orthopedics Routine Consulting Provider: [facility] Reason for consultation: Comminuted fracture of left humeral head 10/06/24 08:11 Consult for Sitter Routine Reason for consultation: agitation, fall risk DS: Diagnosis Discharge Diagnosis (1) Acute lower GI hemorrhage: Status: Acute DS: Summary Hospital Course Hospital Course: admission hpi Chief Complaint: GI bleed This has a 83-year-old female with pertinent 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 Patient developed loose stools with large amount of hematochezia and hospital medicine team consulted on 10/03 for admission. Patient is on Eliquis and aspirin for recent embolic CVA. Patient is aphasic and unable to provide any history. History obtained with the help of ER provider and son at bedside. The son is concerned about recent GI bleed and multiple falls at [facility]. Unable to obtain review of systems. Stool occult positive for blood. Hospital course: 83-year-old female with pertinent history with history of CVA in June 2024 with ? MRI showing Acute likely embolic stroke/ischemia left MCA territory with a focal? hemorrhagic component in the left temporoparietal subcortical white? matter. Probable embolus, M1, M2 and M3? segments, left MCA. At that time Neurology recommend anticoagulation with eliquis for 3 to 6 months. She was readmitted days later with new finding of stroke. She has since had residual h residual aphasia and right-sided weakness. Additionally has congestive heart failure with reduced ejection fraction, mood disorder, hypertension. She presented on 10/02 with multiple unwitnessed falls and was observed in the ED for STR placement, however she developed loose stools with large amount of hematochezia and was admitted for management of Acute GIB and acute blood loss anemia associated with syncope. In light of Eliquis use, she was given Kcentra and Vitamin K and transfused [address] of RBC[address] A CT of Abdomen and pelvis show no acute pathology or source of bleed. GI saw her and recommended holding ASA and Eliquis for a week. She has since been stable with without further bleed. Patient has also been having multiple falls and has suffered a Comminuted fracture of left humeral head with impaction and displacement: Ortho eval noted -prox nidia fx,non operative,sling for comfort,ok to perform elbow and wrist rom,no lifting she has appt with ortho on 10/24. In light of the patient having multiple issues with recurrent stroke, GI bleeding, asphasia, dhysphasia, falls and continuing functional and cognitive decline, family has elected to transitioned her to Hospice care Final diagnoses GI bleeding acutee blood loss anemia aphasia dysphasia recurrent stroke syncope falls Left humeral fracture Time Attestation Discharge Coordination Time (in mins): 45 Quality: Safe Use of Opioids Does Pt have an Active Cancer Diagnosis on the Problem List?: No Quality: Stroke Does the patient have a stroke diagnosis?: No Physical Exam Vital Signs: Vital Signs: Last Vital Signs Temp 97.7 F 10/09/24 07:07 Pulse 71 10/09/24 07:44 Resp 16 10/09/24 07:07 BP 121/62 10/09/24 07:44 Pulse Ox 95 10/09/24 07:07 O2 Del Method Room Air 10/09/24 07:07 BMI result Body Mass Index 22.1 Discharge Plan Discharge Anticipated Discharge Date/Time: 10/09/24 09:17 Patient Disposition: Hospice - Medical Facility Discharge Diagnosis: gib Referrals: [facility] [Outside] - 1 Day Referral Note: Tricia Hill MD [Primary Care Provider, Medical] - 1 Week Discharge Medications: New morphine concentrate 100 mg/5 mL (20 mg/mL) solution 5 mg PO Q3H PRN (Reason: pain/comfort) 15 Days Qty: 30 0RF Rx Instructions: Partial Fill upon patient request. lorazepam [Lorazepam Intensol] 2 mg/mL concentrate 0.5 mg PO Q4H PRN (Reason: anxiety/restlessness) Qty: 30 0RF omeprazole 20 mg Capsule,Delayed Release(Dr/Ec) 20 mg PO DAILY Qty: 1 0RF Continued sertraline 50 mg tablet 75 mg PO DAILY Qty: 45 1RF buspirone 10 mg tablet 10 mg PO BID atorvastatin 40 mg Tablet 40 mg PO BEDTIME Qty: 90 0RF amlodipine 2.5 mg tablet 2.5 mg PO DAILY acetaminophen [Acetaminophen Extra Strength] 500 mg tablet 500 mg PO BID ergocalciferol (vitamin D2) [Vitamin D2] 1,250 mcg (50,000 unit) capsule 1,250 mcg PO FR lisinopril 20 mg tablet 20 mg PO BID Protocol: Hold for SBP< HOLD for SBP < : 90 carvedilol [Coreg] 3.125 mg tablet 3.125 mg PO BID Rx Instructions: must administer with a meal/food (DME) Blood Pressure Cuff Misc See Rx Instructions .Route Qty: 1 1RF Rx Instructions: As directed Held Eliquis 5 mg tablet 5 mg PO BID Hold Instructions: Resume on 10/14/24. aspirin 81 mg Tablet,Delayed Release (Dr/Ec) 81 mg PO DAILY Qty: 90 0RF Hold Instructions: Resume on 10/14/24. Discharge Orders: Discharge Order (Routine); Ordered 10/09/24 Ordered By: Kemal Henderson Diet: Advance to usual diet Activity on Discharge: As tolerated Stand Alone Forms: Patient Portal Discharge page Print Language: Danish Care Plan Goals: Transitioning to hospice care with ultimate goal of comfort Health Concerns: recurrent strokes, aphasisa, dyspahagia, gi bleeding Plan of Treatment: hold aspirin and Eliquis for a week, but maybe discontinued all together depending on family wish hospice care, medications maybe adjusted to suit hospice needd. Ativan and morphine for comfort Assessment: see above
== END 2024-10-09 11:11 | disposition hospice, inpatient (51) | DRG 378 ==
LOC: HO.ED 10-03 22:11 → HO.EDOVER 10-03 22:18 → HO.IMC 10-04 01:37
PROVIDERS: Family Medicine; Internal Medicine; Physician Assistant; Physician Assistant Medical; Admitting Provider Student in an Organized Health Care Education/Training Program; Emergency Provider Emergency Medicine; PCP Internal Medicine; Visit Provider Internal Medicine
DX: K92.1 Melena (principal); D62 Acute posthemorrhagic anemia; S42.212A Unspecified displaced fracture of surgical neck of left humerus, initial encounter for closed fracture; I69.351 Hemiplegia and hemiparesis following cerebral infarction affecting right dominant side; I50.22 Chronic systolic (congestive) heart failure; F05 Delirium due to known physiological condition; I69.320 Aphasia following cerebral infarction; Z66 Do not resuscitate; I11.0 Hypertensive heart disease with heart failure; F39 Unspecified mood [affective] disorder; R29.6 Repeated falls; R33.9 Retention of urine, unspecified; R55 Syncope and collapse; R53.81 Other malaise; W06.XXXA Fall from bed, initial encounter; Z79.01 Long term (current) use of anticoagulants; Z79.82 Long term (current) use of aspirin; Z79.899 Other long term (current) drug therapy
CPT/HCPCS: 36415; 70450; 70496; 70498; 71260; 72125; 73060; 73130; 74177; 74178; 80048; 80053; 80061; 81001; 82272; 82607; 82746; 82947; 83735; 84443; 84484; 85014; 85018; 85025; 85027; 85610; 85730; 86850; 86900; 86901; 86923; 93005; 97161; 97162; 99285; J0131; J2470; J3360; J3430; J3480; J7120; J7168; P9016; Q9967

== ENCOUNTER → 2024-10-02 10:00 | Outpatient (BNV) | payer MEDICARE, OTHER, SELFPAY | PROVIDERS: Emergency Provider Emergency Medicine; PCP Internal Medicine; Visit Provider Radiology Diagnostic Radiology | DX: M51.360 Other intervertebral disc degeneration, lumbar region with discogenic back pain only (principal); I66.02 Occlusion and stenosis of left middle cerebral artery; I51.7 Cardiomegaly; M50.322 Other cervical disc degeneration at C5-C6 level; G31.9 Degenerative disease of nervous system, unspecified; M79.641 Pain in right hand | CPT/HCPCS: 70450; 70496; 70498; 71260; 72125; 73130; 74177 ==

== ENCOUNTER → 2024-10-02 10:00 | Outpatient (BNV) | payer MEDICARE, OTHER, SELFPAY | PROVIDERS: Emergency Provider Emergency Medicine; PCP Internal Medicine; Visit Provider Internal Medicine | DX: R00.1 Bradycardia, unspecified (principal) | CPT/HCPCS: 93010 ==

== ENCOUNTER → 2024-10-03 18:11 | Outpatient (BNV) | payer MEDICARE, OTHER, SELFPAY | PROVIDERS: Emergency Provider Emergency Medicine; PCP Internal Medicine; Visit Provider Radiology Diagnostic Radiology | DX: K62.5 Hemorrhage of anus and rectum (principal) | CPT/HCPCS: 74178 ==

== ENCOUNTER 2024-10-03 22:11 | Outpatient (BNV) | payer MEDICARE, OTHER, SELFPAY | END 2024-10-04 14:22 | PROVIDERS: Admitting Provider Student in an Organized Health Care Education/Training Program; Emergency Provider Emergency Medicine; PCP Internal Medicine; Visit Provider Radiology Diagnostic Radiology | DX: K57.30 Diverticulosis of large intestine without perforation or abscess without bleeding (principal) | CPT/HCPCS: 74178 ==

== ENCOUNTER → 2024-10-03 22:11 | Outpatient (BNV) | payer MEDICARE, OTHER, SELFPAY | PROVIDERS: Admitting Provider Student in an Organized Health Care Education/Training Program; Emergency Provider Emergency Medicine; PCP Internal Medicine; Visit Provider Student in an Organized Health Care Education/Training Program | DX: K92.2 Gastrointestinal hemorrhage, unspecified (principal) | CPT/HCPCS: 99231; 99232; 99497; 99499 ==